=== PATIENT | female | born 1970 | race Caucasian/White ===

== ENCOUNTER 2017-09-22 11:29 | Day surgery (SDC) | payer OTHER, SELFPAY ==
[2017-09-20 11:25] LABS: Hematocrit 39.8 % (37-47); Hemoglobin 13.7 g/dl (12.0-15.0); Mean Corp Hgb Conc 34.4 g/gl (32-36); Mean Corpuscular Hgb 31.4 pg (27.0-32.0); Mean Corpuscular Volume 91.1 fL (81-99); Mean Platelet Vol. 8.9 fl (6.2-12.0); Platelet Count 193 K/mm3 (150-450); RBC Distribution Width CV 12.3 % (11.6-14.6); RBC Distribution Width SD 40.7 fl (35.1-43.9); Red Blood Count 4.37 M/mm3 (4.2-5.4); White Blood Count 5.5 K/mm3 (4.4-11.0)
[2017-09-20 11:27] LABS: International Normalized Ratio 1.1; Prothrombin Time (Protime)PT. 13.9 SECONDS (11.7-14.9)
[2017-09-20 11:28] LABS: Partial Thromboplast Time 31.5 Seconds (24.1-36.2)
[2017-09-20 11:38] LABS: Scan Indicated on CBC? Y/N NO
[2017-09-20 11:41] LABS: Pregnancy, Serum, hCG Quali. NEGATIVE Negative (0-9 Nonpreg)
[2017-09-22 11:58] VITALS: BP 135/91; PULSE 63; RESP 16; TEMP 37.1; O2SAT 100; BMI 32.8
[2017-09-22 12:01] LABS: Internal QC Validated? YES +Cl - CLEAR BKGD; Pregnancy, Urine Negative Negative
--- NOTE | 2017-09-22 13:05 | FALS_PTH ---
PATIENT: JUNIOR TSE [place] [facility] [place][id number] AGE/SX: 46/F ROOM: RE09/22/[address]: Dr. Christa Villegas MD : 1970 BED: DIS: 09/22/2017 SPEC #: [id number] RECD: 09/22/17 18:09 STATUS: KEILA CARI #: [id number] ROVERTO: 09/22/17 13:[address]: Christa Villegas DEPT: SURGICAL PATHOLOGY RECD BY: Julian Ware ENTERED: 09/23/17 11:04 SP TYPE: FALL TUBES OTHR DR: Dr. Doreen Reeves MD Tissues: A - Fallopian tube B - Uterine cervix, NOS Procedures: Surgery Specimen Level II Surgery Specimen Level IV HEADER OPERATION: Laparoscopic salpingectomy, hysteroscopy D & C, Hazel PRE-OP DIAGNOSIS: Excessive and frequent menstruation; sterilization request TISSUE SUBMITTED: A ? Bilateral fallopian tubes, B ? Uterine curettings MICROSCOPIC DIAGNOSIS A. Bilateral fallopian tubes, salpingectomy: Bilateral fallopian tubes including fimbrial ends, no pathologic diagnosis. B. Uterine curettings: Mildly disordered proliferative endometrium. Mild chronic endometritis. ESME:lew 09/24/17 MICROSCOPIC DESCRIPTION Slides are reviewed. GROSS DESCRIPTION A - Received is one container labeled with the patient's name and designated bilateral fallopian tubes. The specimen consists of bilateral fallopian tubes including fimbrial ends. The fallopian tubes are not identified as right or left. One of the fallopian tubes measure 6 cm in length and 0.5 cm in diameter. The fimbrial end has normal appearance. Sections do not reveal any mass lesion. The other fallopian tube measures 7 cm in length and 0.5 cm in diameter. Water Main Inspector sections are submitted in two cassettes. The entire specimen is submitted in two cassettes with each cassette containing one fallopian tube. B - Received in fixative is one container labeled with the patient's name and designated uterine curettings. The specimen consists of multiple fragments of hemorrhagic soft tissue that in aggregate measure 3 x 2.5 x 0.3 cm. The entire specimen is submitted in one cassette. / ESME:lew 09/23/17 TC:3 CPT: 70691 x2, 92253
--- NOTE | 2017-09-22 13:39 | PCM.DC.TUB ---
Discharge Diet: No Restrictions Discharge Activity: May not drive while taking narcotic pain medications., May Shower, May Take a Tub Bath May resume sexual activity in: 1-2 weeks Additional Activity Instructions:: Ambulate often the next week after surgery. Nothing in the vagina for 5 days. Call your doctor if you observe: Fever of 101 or Higher, Inability to have a bowel movement, Using more than one pad per hour, Calf discomfort, Uncontrolled pain Allergies/Adverse Reactions: Allergies bee venom protein (honey bee) Allergy (Verified 09/15/17 13:49) Swelling Medications to take at Discharge Bacillus Coagulans [Probiotic] 1 each PO DAILY 07/21/17 Citalopram [Celexa] 20 mg PO DAILY 07/21/17 Multivitamin [Multiple Vitamins] 1 each PO DAILY 07/21/17 Beaman-3 Fatty Acids/Fish Oil [Beaman 3 1,000 mg Softgel] 1 each PO DAILY 07/21/17 Oxycodone [Oxyir] 5 - 10 mg PO Q6H PRN PRN 2 Days #7 tablet 09/22/17 The following prescriptions were given: Oxycodone [Oxyir] 5 - 10 mg PO Q6H PRN PRN 2 Days #7 tablet PRN Reason: Mod-Severe Pain (4-10/10) Primary Care Physician: Doreen Reeves MD [Primary Care Provider] - Please Follow Up With: Christa Villegas MD - [phone] When: in two weeks as planned for follow up check. Proposed Discharge Date: 09/22/17
--- NOTE | 2017-09-22 13:44 | DCINST_ITS ---
Discharge Diet: No Restrictions Discharge Activity: May not drive while taking narcotic pain medications., May Shower, May Take a Tub Bath May resume sexual activity in: 1-2 weeks Additional Activity Instructions:: Ambulate often the next week after surgery. Nothing in the vagina for 5 days. Call your doctor if you observe: Fever of 101 or Higher, Inability to have a bowel movement, Using more than one pad per hour, Calf discomfort, Uncontrolled pain Allergies/Adverse Reactions: Allergies bee venom protein (honey bee) Allergy (Verified 09/15/17 13:49) Swelling Medications to take at Discharge Bacillus Coagulans [Probiotic] 1 each PO DAILY 07/21/17 Citalopram [Celexa] 20 mg PO DAILY 07/21/17 Multivitamin [Multiple Vitamins] 1 each PO DAILY 07/21/17 Sweet Grass-3 Fatty Acids/Fish Oil [Sweet Grass 3 1,000 mg Softgel] 1 each PO DAILY Oxycodone [Oxyir] 5 - 10 mg PO Q6H PRN PRN 2 Days #7 tablet 09/22/17 The following prescriptions were given: Oxycodone [Oxyir] 5 - 10 mg PO Q6H PRN PRN 2 Days #7 tablet PRN Reason: Mod-Severe Pain (4-10/10) Primary Care Physician: Doreen Reeves MD [Primary Care Provider] - Please Follow Up With: Christa Villegas MD - [phone] When: in two weeks as planned for follow up check. Proposed Discharge Date: 09/22/17
[2017-09-22] MEDS: Bupiv/Epi 0.5% Mpf 30 ML Vial (13:58)
[2017-09-22 14:46] VITALS: BP 135/91; BP 136/83; PULSE 80; RESP 16; TEMP 36.5; O2SAT 98
[2017-09-22 15:00] VITALS: BP 134/82; BP 135/91; PULSE 62; RESP 16; O2SAT 94
[2017-09-22 15:15] VITALS: BP 133/81; BP 135/91; PULSE 68; RESP 16; O2SAT 99
[2017-09-22 15:28] VITALS: BP 135/83; BP 135/91; PULSE 60; RESP 16; TEMP 36.6; O2SAT 99
[2017-09-22 16:23] VITALS: BP 135/91
--- NOTE | 2017-09-22 20:51 | PCM.OP.BLANK ---
Operative Report Date of Procedure: 09/22/17 Operative Report Date of Procedure: 09/22/17 PROCEDURE: Laparoscopic bilateral salpingectomy Hysteroscopy Dilation and Curettage Hazel Endometrial Ablation PREOPERATIVE DIAGNOSIS: Excessive bleeding in premenopause Sterilization Request POSTOPERATIVE DIAGNOSIS: Excessive bleeding in premenopause Sterilization Request ANESTHESIA: MAC IV sedation per SANDY Rizzo and Mikhail Mandujano MD SURGEON: Christa Villegas MD EBL: minimal COMPLICATIONS: None DRAINS: Red Johnson catheter used to drain bladder prior to initiation of the case FLUIDS: LR replacement FINDINGS: Normal appearing uterus, fallopian tubes and ovaries noted on laparoscopy Uterus is 8 cm with 4 cm endometrial cavity. Both tubal ostia noted. NARRATIVE ACCOUNT: After the risks, benefits, alternatives of the procedure had been reviewed with the patient informed consent was obtained. The patient was taken to the operating room with an IV running and was place in dorsal supine position on the operating table. A red Johnson catheter was used to drain the bladder. she was positioned on the operating table in dorsal supine position, where she was given general anesthesia. Once asleep she was repositioned to the dorsal lithotomy position and prepped and draped in the usual sterile fashion. A red Johnson catheter was used to drain the bladder prior to initiating the case. A single toothed tenaculum and Dona cannula were placed into the cervix to allow manipulation of the uterus and cervix during the case. Attention was then turned to the anterior abdominal wall where 0.5 % Marcaine with epinephrine was instilled at the suprapubic and infraumbilical skin and at a point midway between in the midline. Skin incisions were then created in the midline at the suprapubic skin and at the infraumbilical skin and midway between the two. While maintaining upward traction of the anterior abdominal wall a Veress needle was inserted through the umbilical incision into the peritoneal cavity. There was free drop of saline, low opening pressure and free flow of CO2 noted. Once the intraabdominal pressure had reached 12 mm of mercury the Veress needle was removed and a bladeless 5 mm trocar was placed through infraumbilical skin incision into the peritoneal cavity. Correct placement was confirmed using the scope. Under direct visualization then with the patient in Trendelenburg position, a bladeless 5 mm trocar was inserted in through suprapubic skin incision into the peritoneal cavity and at a point midway between the infraumbilical and suprapubic trocars. The uterus as anteverted and both ovaries and fallopian tubes were WNL. The L fallopian tube was grasped and retracted medially and using a LigaSure device the fallopian tube was excised from the ovary and mesosalpinx. Excellent hemostasis was noted at the excision site. The L fallopian tube was brought through the suprapubic trocar and set aside for later pathology review. In a similar manner the R fallopian tube was grasped and retracted medially and the fallopian tube was excised and removed from the abdominal cavity through the suprapubic trochar. The Fallopian tubes were sent to pathology. Excellent hemostasis was noted by visualization of the pelvis, ovaries, and remaining mesosalpinx. Photos were taken of the uterus and bilateral remaining ovaries . At this point this portion of the the procedure was terminated. The pneumoperitoneum was reduced and the instruments and trocars were removed from he the anterior abdominal wall skin. The skin incisions were closed with 4-0 Monocryl in a subcuticular fashion. Dermabond and OpSites were applied to the skin. The Single toothed tenaculum and Dona cannula were removed from the vagina. A Graves speculum was placed into the vagina and a single toothed tenaculum was then placed at the anterior lip of the cervix. The uterus was sounded to 8 cm and the endocervical canal 4 cm, giving cavity length of 4 cm. The cervix was sequentially dilated to allow admission of the hysteroscope. The hysteroscopy was then performed with the findings noted above. Both tubal ostia were visualized. The hysteroscope was withdrawn. A sharp curettage was performed and the curettings were withdrawn and set aside for later pathology review. The Hazel ablation device was then placed into the uterus to the fundus. The device was opened and seated into place and the balloon was inflated, sealing off the cervix. The CO2 test was passed times two and a 120 second treatment cycle was then successfully completed. Upon completion of the ablation, the Hazel device was removed from the uterus and cervix. The tenaculum was removed from the anterior lip of the cervix. Excellent hemostasis was noted. The Graves speculum was removed from the vagina and the patient was returned to dorsal supine position. she was transferred then to the recovery room in stable condition after tolerating the procedure well. Sponge, needle, and instrument counts were correct times two. Medications given intraop included a 10 cc of 0.5 % Marcaine as a local anesthetic at the skin incisions . For a complete listing of the medications given preop and intraoperatively, please see the anesthesia record.
== END 2017-09-22 16:56 | disposition home or self-care (01) ==
LOC: SDC 11:31 → AC 11:32
PROVIDERS: Anesthesiology; Family Provider Internal Medicine; PCP Internal Medicine; Visit Provider Obstetrics & Gynecology
PROC: (CPT 58661; principal; 2017-09-22 12:50)
DX: Z30.2 Encounter for sterilization (principal); N92.4 Excessive bleeding in the premenopausal period; M06.9 Rheumatoid arthritis, unspecified; F41.9 Anxiety disorder, unspecified; Z79.899 Other long term (current) drug therapy; K21.9 Gastro-esophageal reflux disease without esophagitis
CPT/HCPCS: 00952; 58563; 58661; 36415; 81025; 84703; 85027; 85610; 85730; 88302; 88305; J7120; J2405

== ENCOUNTER → 2017-10-18 15:16 | Outpatient (CLI) | payer OTHER, SELFPAY ==
--- NOTE | 2017-10-18 15:17 | HPBI_ITS ---
MAMMOGRAPHY - BILATERAL SCREENING REASON FOR EXAM: Female, 46 years old. Routine annual screening examination. PERTINENT HISTORY: Non-contributory. TECHNIQUE: Digital bilateral breast thierry (3D mammographic acquisition) in the CC and MLO projections. 2-D mediolateral oblique (MLO) and craniocaudad (CC) views of both breasts were obtained. CAD: Full Field Digital Mammography with Computer Added Detection was performed. COMPARISON: Comparison is made with prior study dated September 03, 2016 and June 14, 2015. FINDINGS: Breast Composition: There are scattered areas of fibroglandular density. There are no dominant masses or suspicious calcifications. Stable bilateral benign appearing axillary lymph nodes. No other significant abnormalities are identified. There has been no significant change since the prior study. HPBI/SCREENING MAMM (CAD), BILAT IMPRESSION: Stable bilateral screening mammogram. Yearly follow-up mammogram recommended. (A) ASSESSMENT CATEGORY: BIRADS Category 2: Benign. A letter regarding these results will be sent to the patient by the facility within 30 days. Approximately 10% of breast cancers are not detected by mammography. A normal mammogram should not delay biopsy of a clinically suspicious abnormality. [id number] Electronically Signed: Ned Cheng MD at 8:16 EDT Tel [phone], Service support ,
== END ==
PROVIDERS: Family Provider Internal Medicine; PCP Internal Medicine; Visit Provider Obstetrics & Gynecology
DX: Z12.31 Encounter for screening mammogram for malignant neoplasm of breast (principal)
CPT/HCPCS: 77063; 77067

== ENCOUNTER → 2018-08-29 18:15 | Outpatient (CLI) | payer OTHER, SELFPAY ==
[2018-08-29 22:03] LABS: Chlamydia Trachomatis by PCR Negative (Negative); Neisserai gonorrhoeae by PCR Negative (Negative); Probe Check PASS; Sample Adequacy Control PASS; Specimen Processing Control PASS
[2018-09-01 15:20] LABS: HPV Reflexed? NOT INDICATED
== END ==
PROVIDERS: Family Provider Internal Medicine; PCP Internal Medicine; Referring Provider Obstetrics & Gynecology; Visit Provider Obstetrics & Gynecology
DX: Z12.4 Encounter for screening for malignant neoplasm of cervix (principal); Z11.3 Encounter for screening for infections with a predominantly sexual mode of transmission
CPT/HCPCS: 87491; 87591; 88175; G0145

== ENCOUNTER → 2018-09-01 16:15 | Outpatient (CLI) | payer OTHER, SELFPAY ==
--- NOTE | 2018-09-01 16:22 | RAD_ITS ---
STUDY: X-RAY - RIGHT HAND REASON FOR EXAM: Female, 47 years old. Pain TECHNIQUE: 3 view(s) of the hand. COMPARISON: None. FINDINGS: Normal radiocarpal articulation. Normal distal radioulnar joint. Normal visualized carpal bones. Normal carpal articulations Normal carpometacarpal articulation of the thumb. Normal second through fifth carpometacarpal joints. Normal metacarpi. Normal metacarpophalangeal joint of the thumb. Normal interphalangeal joint of the thumb. Normal proximal and distal phalanges of the thumb. Normal metacarpophalangeal joints of the second through fifth fingers. Normal proximal and distal interphalangeal joints of the second through fifth fingers. Normal phalanges of the second through fifth fingers. The soft tissue structures are unremarkable. RAD/Hand Min 3 Views IMPRESSION: Normal x-ray examination of the hand. Electronically Signed: Chano Yuan MD at 7:35 EST , Service support ,
[2018-09-01 17:30] LABS: Absolute Neutrophil Count 2.9 X10^3/uL (2.0-7.7); Basophil# 0.04 X10^3/uL; Basophil% 0.6 % (0-1); Eosinophil# 0.25 X10^3/uL; Eosinophils% 3.7 % (0-5); Hematocrit 38.5 % (37-47); Hemoglobin 13.6 g/dl (12.0-15.0); Lymphocyte % 42.8 % (19-41); Mean Corp Hgb Conc 35.3 g/gl (32-36); Mean Corpuscular Hgb 32.1 pg (27.0-32.0); Mean Corpuscular Volume 90.8 fL (81-99); Mean Platelet Vol. 9.1 fl (6.2-12.0); Monocyte# 0.67 X10^3/uL; Monocyte% 9.9 % (0-10); Neutrophil # 2.91 X10^3/uL (2.7-7.7); Neutrophil % 42.9 % (47-70); Platelet Count 242 K/mm3 (150-450); RBC Distribution Width CV 12.3 % (11.6-14.6); RBC Distribution Width SD 40.1 fl (35.1-43.9); Red Blood Count 4.24 M/mm3 (4.2-5.4); White Blood Count 6.8 K/mm3 (4.4-11.0)
[2018-09-01 17:34] LABS: POSITIVE COUNT NO; POSITIVE DIFFERENTIAL NO; POSITIVE MORPHOLOGY NO
[2018-09-01 17:49] LABS: Erythrocyte Sedimentation Rate 9 mm/hr (0-20)
[2018-09-01 18:01] LABS: ALB/GLOB Ratio 0.9 RATIO (0.9-2.4); AST(SGOT) 22 U/L (15-37); Alanine Aminotransfer ALT/SGPT 34 U/L (13-56); Albumin, Serum 3.7 g/dL (3.2-5.0); Alkaline Phosphatase 63 U/L (45-117); Anion Gap 8 (5-15); BUN 12 mg/dL (7-18); BUN/Creat Ratio 15.1 RATIO (10-20); CRP < 2.90 mg/L (0.0-3.0); Calcium,Total 8.5 mg/dL (8.5-10.1); Chloride 108 mmol/L (98-107); Creatinine, Serum 0.79 mg/dL (0.55-1.02); EST Glomerular Filtration Rate 82 mL/min (>60); Est Glom Filt Rate - Afr Amer 99 mL/min (>60); Globulin 4.1 g/dL (2.2-4.2); Glucose 85 mg/dL (74-106); Potassium 3.9 mmol/L (3.5-5.1); Protein, Total 7.8 g/dL (6.4-8.2); Sodium Level 141 mmol/L (136-145); Thyroid Stim Hormone (TSH) 1.58 uIU/mL (0.358-3.74); Uric Acid 4.2 mg/dL (2.6-6.0); Vitamin B12 957 pg/mL (211-911)
[2018-09-06 08:56] LABS: ANTINUCLEAR ANTIBODIES DIRECT Negative (Negative)
== END ==
PROVIDERS: Family Provider Family Medicine; PCP Family Medicine; Referring Provider Family Medicine; Visit Provider Family Medicine
DX: M79.641 Pain in right hand (principal); M79.89 Other specified soft tissue disorders; M08.20 Juvenile rheumatoid arthritis with systemic onset, unspecified site; R20.2 Paresthesia of skin
CPT/HCPCS: 36415; 73130; 80053; 82607; 84443; 84550; 85025; 85652; 86038; 86140; 86431

== ENCOUNTER → 2018-10-04 16:59 | Outpatient (CLI) | payer OTHER, SELFPAY ==
--- NOTE | 2018-10-04 17:02 | RAD_ITS ---
STUDY: X-RAY - CERVICAL SPINE REASON FOR EXAM: Female, 47 years old. Bilateral hand tingling, paresthesias. TECHNIQUE: 5 view(s) of the cervical spine were obtained. COMPARISON: None FINDINGS: Reversal of the expected cervical lordosis. Vertebral body height and alignment normal. Mineralization normal. Between C2 and C5, normal discs, normal-appearing facets. C5-C6 moderate disc narrowing, anterior osteophyte, uncovertebral joint hypertrophy. C6-C7 moderately severe disc narrowing, small anterior osteophyte, uncovertebral joint hypertrophy. Uncovertebral joint hypertrophy at these levels contributes to at least mild foraminal narrowing on the oblique views. There is minimal facet arthropathy/hypertrophy most prominent in the low cervical spine on the left. Odontoid and lateral masses normal. Craniofacial and upper thoracic osseous structures intact. Apical lungs clear. Prevertebral/cervical soft tissues exhibit no acute process. RAD/Cerv Spine 4 or 5 Views IMPRESSION: Prominent degenerative disc disease at C5-C6 and C6-C7. With convincing symptoms of cervical radiculopathy follow-up MRI of the cervical spine is recommended. Electronically Signed: Patrice Webb MD at 15:46 EST Tel , Service support ,
== END ==
PROVIDERS: Family Provider Family Medicine; PCP Family Medicine; Referring Provider Family Medicine; Visit Provider Family Medicine
DX: R20.2 Paresthesia of skin (principal)
CPT/HCPCS: 72050

== ENCOUNTER → 2018-10-05 16:34 | Outpatient (CLI) | payer OTHER, SELFPAY ==
[2018-10-05 17:45] LABS: Estradiol 236.6 pg/mL; Follicle Stimulating Hormone 3.8 mIU/mL; Luteinizing Hormone 9.5 mIU/mL
[2018-10-05 17:47] LABS: Vitamin D,25 Hydroxy 35.4 ng/mL (29.95-100.01)
[2018-10-07 12:41] LABS: DHEA Sulfate 97.8 ug/dL (41.2-243.7)
== END ==
PROVIDERS: Family Provider Family Medicine; PCP Family Medicine; Referring Provider Family Medicine; Visit Provider Family Medicine
DX: R23.2 Flushing (principal); R53.83 Other fatigue
CPT/HCPCS: 36415; 82306; 82533; 82627; 82670; 83001; 83002; 82626

== ENCOUNTER → 2018-10-14 06:25 | Outpatient (CLI) | payer OTHER, SELFPAY ==
--- NOTE | 2018-10-14 06:38 | MRI_ITS ---
STUDY: MRI CERVICAL SPINE WITHOUT CONTRAST REASON FOR EXAM: Female, 47 years old. Pain, numbness, tingling of bilateral hands x10 weeks. History of RA. TECHNIQUE: Standardized fat and water weighted pulse sequences were obtained in the sagittal and axial planes. COMPARISON: Cervical spine radiographs 10/04/2018. FINDINGS: Normal foramen magnum and brainstem-cervical cord junction. Normal craniovertebral junction. Normal anterior atlantoaxial articulation. Normal odontoid process. Mild cervical kyphosis. Normal vertebral bodies and posterior osseous elements. C2-3: Normal endplates. Normal disc height, signal and morphology. Normal central canal and intervertebral neural foramina. C3-4: Normal endplates. Normal disc height, signal and morphology. Normal central canal and intervertebral neural foramina. C4-5: Normal endplates. Mild disc space height narrowing. No ventral extradural defect. Normal central canal and bilateral intervertebral neural foramina. C5-6: Minimal anterior marginal spurs. Normal endplates. Moderately pronounced disc space height narrowing. No ventral extra dural defect. Normal central canal. Moderate stenosis of the right intervertebral neural foramen. Normal left intervertebral neural foramen. C6-7: Anterior marginal spurs. Modic type I degenerative vertebral marrow edema underneath the vertebral endplates. Moderately pronounced disc space height narrowing. Small posterior marginal spurs causing mild left ventral extradural defect. Normal central canal. Mild stenosis of the left intervertebral neural foramen. Normal right intervertebral neural foramen. C7-T1: Normal endplates. Normal disc height, signal and morphology. Normal central canal and intervertebral neural foramina. T1-T2, T2-T3 and T3-T4: (Sagittal only). Normal endplates. Normal disc height and morphology. Normal central canal and bilateral intervertebral neural foramina. Normal cervical cord. Normal visualized soft tissue structures. MRI/Spine Cervical (Routine) IMPRESSION: 1. No MRI evidence of cervical extruded disc fragment. 2. Moderately pronounced C6-C7 disc space height narrowing with Modic type I degenerative vertebral marrow edema underneath the vertebral endplates and mild stenosis of the left intervertebral neural foramen. 3. Moderate pronounced C5-C6 disc space height narrowing and moderate stenosis of the right intervertebral neural foramen. Electronically Signed: Bennett Correa MD at 15:39 EDT , Service support ,
== END ==
PROVIDERS: Family Provider Family Medicine; PCP Family Medicine; Referring Provider Family Medicine; Visit Provider Family Medicine
DX: R20.2 Paresthesia of skin (principal)
CPT/HCPCS: 72141

== ENCOUNTER → 2018-10-19 16:17 | Outpatient (CLI) | payer OTHER, SELFPAY ==
--- NOTE | 2018-10-19 16:21 | BI_ITS ---
MAMMOGRAPHY - BILATERAL SCREENING 3-D NIKIA SYNTHESIS REASON FOR EXAM: Female, 47 years old. Bilateral Screening 3-D tomosynthesis PERTINENT HISTORY: No significant family history. TECHNIQUE: 2-D mammograms and 3-D Nikia synthesis of the breast (s) were performed. CAD was performed. COMPARISON: October 18, 2017, September 03, 2016 FINDINGS: The breast composition is almost entirely fat. Scattered benign calcifications are stable. There are stable lymph nodes in both axillae. No dense spiculated masses or suspicious microcalcifications are identified. No architectural distortion is identified. There is no skin thickening or retraction. There has been no significant change since the prior study. BI/SCREENING MAMM (CAD), BILAT IMPRESSION: No mammographic signs of malignancy. Routine yearly mammograms recommended. ASSESSMENT CATEGORY: BIRADS Category 2: Benign. A letter regarding these results will be sent to the patient by the facility within 30 days. FOLLOW UP RECOMMENDATION: Yearly follow up mammogram recommended. (A) Approximately 10% of breast cancers are not detected by mammography. A normal mammogram should not delay biopsy of a clinically suspicious abnormality. Electronically Signed: Marlon Alfaro MD at 16:32 EDT , Service support ,
== END ==
PROVIDERS: Family Provider Family Medicine; PCP Family Medicine; Visit Provider Obstetrics & Gynecology
DX: Z12.31 Encounter for screening mammogram for malignant neoplasm of breast (principal)
CPT/HCPCS: 77063; 77067

== ENCOUNTER 2018-11-22 15:30 | Outpatient (RCR) | payer OTHER, SELFPAY ==
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
--- NOTE | 2019-03-16 15:34 | HP.PTDCNRP_ITS ---
HP - Discharge Summary (1) - Patient Information JUNIOR TSE was seen in my office for initial evaluation on 10/27/18. The following Plan of Care was established for this patient: Initial Frequency: 2x /Week Initial Duration: 4 Weeks - Anticipated Interventions Patient/Client Instruction: Educate patient on: Condition, Plan of Care For the Purpose of:: To decrease pain, To increase ROM, To improve muscle perf ormance and motor function, To improve ability to perform ADL's, To increase tolerance to activity/condition/position, To improve ability of physical actions for home/community/work/leisure, To improve health of tissue, To decrease soft tissue restriction, To increase flexibility/ROM, To improve ability to perform tasks related to life management Therapeutic Exercise to Include: Strength training, Postural training, Flexibilty training, Passive ROM, Active ROM For the Purpose of:: To decrease pain, To increase ROM, To improve muscle performance and motor function, To improve ability to perform ADL's, To increase tolerance to activity/condition/position, To improve ability of physical actions for home/community/work/leisure, To improve health of tissue, To decrease soft tissue restriction, To reduce risk of recurrence, To improve ability to perform tasks related to life management Manual Therapy Techniques to Include: Mobilization Comment: MANUAL CERVICAL TRCATION For the Purpose of:: To decrease pain, To increase ROM, To improve muscle performance and motor function, To improve ability to perform ADL's, To improve health of tissue, To decrease soft tissue restriction, To increase flexibility/ROM TENS: Yes IF ES: Yes Ultrasound (thermal/non thermal): Yes Intermittent cervical traction: Yes For the Purpose of:: To decrease pain, To improve nutrient delivery to tissue, To increase oxygenation perfusion, To improve health of tissue, To decrease soft tissue restriction This patient was last seen in our office 11/22/18. Pertinent comments regarding their Physical therapy will appear below: Patient seen for PT for cervical DDD with radicular symptoms in arms. PT focused on manual therapy ,modalties,postural ex's. Pateint cont to have parathesia in hands . At this point ,patient is d/c. At this point I will be discontinuing this patient from physical therapy. I would be happy to see this patient again in the future if found appropriate by the physician. Thank you! Milad Cao, PT, Cert MDT, OCS
== END 2018-11-22 19:00 | disposition home or self-care (01) ==
LOC: PT 15:30
PROVIDERS: Family Provider Family Medicine; PCP Family Medicine; Referring Provider Family Medicine; Visit Provider Family Medicine
DX: M50.30 Other cervical disc degeneration, unspecified cervical region (principal)
CPT/HCPCS: 97012; 97035; 97140; 97162

== ENCOUNTER → 2019-09-05 | Outpatient (CLI) | payer OTHER, SELFPAY ==
[2019-09-05 20:20] LABS: Chlamydia Trachomatis by PCR Negative (Negative); Neisserai gonorrhoeae by PCR Negative (Negative); Probe Check PASS; Sample Adequacy Control PASS; Specimen Processing Control PASS
== END | disposition home or self-care (01) ==
PROVIDERS: PCP Family Medicine; Referring Provider Obstetrics & Gynecology; Visit Provider Obstetrics & Gynecology
DX: Z11.3 Encounter for screening for infections with a predominantly sexual mode of transmission (principal)
CPT/HCPCS: 87491; 87591

== ENCOUNTER → 2019-10-03 11:36 | Outpatient (CLI) | payer OTHER, SELFPAY ==
[2019-10-03 15:18] LABS: Anion Gap 5 (5-15); BUN 14 mg/dL (7-18); BUN/Creat Ratio 17.5 RATIO (10-20); Chloride 109 mmol/L (98-107); Cholesterol 163 mg/dL (200); EST Glomerular Filtration Rate 81 mL/min (>60); Est Glom Filt Rate - Afr Amer 98 mL/min (>60); Glucose 84 mg/dL (74-106); High Density Lipoprotein 33 mg/dL; Sodium Level 140 mmol/L (136-145); Triglycerides 173 mg/dL; Very Low Density Lipoprotein 35 mg/dL (5-40)
== END ==
PROVIDERS: PCP Family Medicine; Referring Provider Family Medicine; Visit Provider Family Medicine
DX: Z13.1 Encounter for screening for diabetes mellitus (principal); Z13.220 Encounter for screening for lipoid disorders
CPT/HCPCS: 36415; 80048; 80061

== ENCOUNTER 2019-10-04 15:43 | Emergency (ER) | payer OTHER, SELFPAY ==
[2019-10-04 15:44] VITALS: BP 156/95; PULSE 68; RESP 19; TEMP 36.8; O2SAT 17; BMI 35.5
--- NOTE | 2019-10-04 15:57 | EKG12_ITS ---
Test Reason : CP Blood Pressure : / mmHG Vent. Rate : 071 BPM Atrial Rate : 071 BPM P-R Int : 126 ms QRS Dur : 088 ms QT Int : 394 ms P-R-T Axes : 000 014 024 degrees QTc Int : 428 ms Normal sinus rhythm with sinus arrhythmia Normal ECG Confirmed by PARTH MENA, AURELIANO ([id number]), avid editor JOSE ANN ([id number]) on 10/06/2019 8:11:45 AM Referred By: GILLIAN Confirmed By:RAMON ALBA MD
--- NOTE | 2019-10-04 15:57 | CT_ITS ---
STUDY: CTA CHEST REASON FOR EXAM: Female, 48 years old. SUBSTERNAL NONRADIATING RT SIDED CP RADIATION DOSAGE (If Supplied By Facility): CTDIvol = ( 12.76 ) mGy, DLP = ( 1030.15 ) mGycm TECHNIQUE: The examination was performed with the intravenous administration of 100 CC ISOVUE 370. Post-processing of the angiographic images was performed, with multiplanar reformation and 3D reconstruction. Individualized dose optimization techniques were used for this CT. COMPARISON: 05/29/13. FINDINGS: Normal enhancement of the main pulmonary artery and right and left pulmonary arteries. Normal enhancement of the bilateral peripheral pulmonary arteries. There is no demonstrated pulmonary embolism. Normal thoracic aorta and visualized great vessels. There is no demonstrated aortic dissection. Normal heart and pericardium. Normal mediastinum. Normal hilar regions. Normal visualized trachea and bronchi. The lungs are well expanded. Normal pulmonary parenchyma. Normal pleura. Normal chest wall structures. Normal osseous structures. There is diffuse fatty infiltration of the liver. CT/CTA Chest W/WO Contrast IMPRESSION: No demonstrated pulmonary embolism or arterial dissection. Electronically Signed: Herb Campos, at 17:16 EST Tel , Service support ,
[2019-10-04 16:09] LABS: Absolute Lymphocyte Count 3.26 X10^3/uL (0.83-4.51); Absolute Neutrophil Count 3.8 X10^3/uL (2.0-7.7); Basophil# 0.05 X10^3/uL; Basophil% 0.6 % (0-1); Eosinophil# 0.18 X10^3/uL; Eosinophils% 2.3 % (0-5); Hematocrit 38.8 % (37-47); Hemoglobin 13.9 g/dL (12.0-15.0); Lymphocyte # 3.26 X10^3/ul (4.0); Lymphocyte % 40.8 % (19-41); Mean Corp Hgb Conc 35.8 g/dL (32-36); Mean Corpuscular Volume 89.2 fL (81-99); Mean Platelet Vol. 9.3 fl (6.2-12.0); Monocyte# 0.67 X10^3/uL; Monocyte% 8.4 % (0-10); NRBC Flagged by Analyzer 0 % (0-5); Neutrophil # 3.83 X10^3/uL (2.7-7.7); Neutrophil % 47.8 % (47-70); Platelet Count 231 K/mm3 (150-450); RBC Distribution Width CV 11.9 % (11.6-14.6); RBC Distribution Width SD 38.7 fl (35.1-43.9); Red Blood Count 4.35 M/mm3 (4.2-5.4)
[2019-10-04] MEDS: 0.9% Normal Saline 1,000 ML 1000 ML IV (16:13)
[2019-10-04 16:53] LABS: Anion Gap 8 (5-15); BUN 13 mg/dL (7-18); BUN/Creat Ratio 14.7 RATIO (10-20); Chloride 106 mmol/L (98-107); Creatinine, Serum 0.89 mg/dL (0.55-1.02); EST Glomerular Filtration Rate 72 mL/min (>60); Est Glom Filt Rate - Afr Amer 87 mL/min (>60); Estimated Creatinine Clearance 72.37 ml/min; Glucose 102 mg/dL (74-106); Sodium Level 137 mmol/L (136-145)
--- NOTE | 2019-10-04 17:46 | ED.DCSUM_ITS ---
- ER Visit Summary Date of Service: 10/04/19 Chief Complaint: Chest pain History of Present Illness: The patient is a [address] Patel. She reports that she has chest pain began 3 days ago. Is just to the right of her sternum. Is 8 out of 10 at worst and she is pain-free currently. She describes the pain as sharp. Is worsened by movement or deep breaths. Is relieved by rest and remaining still. She reports is been nauseated and short of breath with this. She denies any vomiting or diaphoresis. Denies recent trauma. No fall, MVA, or change in activity. Patient does report that she had a DVT 2 years ago. She was taken off of her control pills. She is not on anticoagulants. She denies any ankle swelling or calf pain. Physical Examination: Vitals: Stable. Afebrile. General: Well-nourished and well-developed. Head: Normocephalic atraumatic. Neck: Supple, no lymphadenopathy. No JVD. Nontender. Cardiovascular: Regular rate and rhythm. No murmurs. Respiratory: No respiratory distress. Clear to auscultation bilaterally. Mild tenderness palpation over the right costochondral margin that does reproduce her pain. Abdominal: Soft, nontender, nondistended, normal bowel sounds. No guarding, rebound, or peritoneal signs. Back: Nontender. Extremities: Nontender, no edema. Skin: Normal color, no rash. Neurologic: Alert and oriented ?3. Cranial nerves II through XII are intact. Normal strength and sensation. Psych: Normal affect. Test Results: EKG is sinus at 71 with no acute changes. Troponin is negative. Chem-7 is normal. CBC is normal. Clinical Impression(s) from Imaging Studies Chest CTA 10/04/19 15:57 IMPRESSION: No demonstrated pulmonary embolism or arterial dissection. Electronically Signed: Herb Campos, at 17:16 EST Tel , Service support , Emergency Department Course and Treatment: Patient refused pain meds. She is resting comfortably. Treatment Plan: Discussed the patient this time I do not have an explanation for her pain but does seem musculoskeletal in origin. She will be discharged with symptomatic care. Follow-up with her primary care physician in 3 to 5 days if not improving. Return to the emergency department for any worsening symptoms. Disposition: To home in improved and stable condition. Impression: 1. Atypical chest pain. This note was generated with [employer] dictation software. It may contain incorrect words, spelling, and punctuation that were not noted in review of the chart prior to signing ED Disposition - Plan for ED Patient: Disposition: Home or Assisted Living Instructions: CHEST PAIN, Uncertain Cause Referrals: Damian Powell MD [Primary Care Provider] - 3-5 Days if not improving
[2019-10-04 18:27] VITALS: BP 142/83; PULSE 70; RESP 18; O2SAT 98
== END 2019-10-04 18:28 | disposition home or self-care (01) ==
LOC: ED 16:55
PROVIDERS: Emergency Provider Emergency Medicine; PCP Family Medicine
DX: R07.89 Other chest pain (principal); Z82.49 Family history of ischemic heart disease and other diseases of the circulatory system
CPT/HCPCS: 71275; 80048; 84484; 85025; 93005; 96360; 99285; J7030; Q9967; A4216

== ENCOUNTER → 2019-10-23 15:03 | Outpatient (CLI) | payer OTHER, SELFPAY ==
[2019-10-04 15:44] VITALS: BMI 35.5
--- NOTE | 2019-10-23 15:05 | BI_ITS ---
MAMMOGRAPHY - BILATERAL SCREENING REASON FOR EXAM: Female, 48 years old. Routine annual screening examination. PERTINENT HISTORY: Non-contributory. TECHNIQUE: Digital bilateral breast nikia (3D mammographic acquisition) in the CC and MLO projections. 2-D mediolateral oblique (MLO) and craniocaudad (CC) views of both breasts were obtained. CAD: Full Field Digital Mammography with Computer Added Detection was performed. COMPARISON: Comparison is made with prior study dated October 19, 2018 and October 18, 2017. FINDINGS: Breast Composition: There are scattered areas of fibroglandular density. There are no dominant masses or suspicious calcifications. Stable appearance of the benign-appearing bilateral axillary lymph nodes. No other significant abnormalities are identified. There has been no significant change since the prior study. BI/SCREEN MAMM (CAD) W/NIKIA BILAT IMPRESSION: Stable bilateral screening mammogram. Yearly follow-up mammogram recommended. (A) ASSESSMENT CATEGORY: BIRADS Category 2: Benign. A letter regarding these results will be sent to the patient by the facility within 30 days. Approximately 10% of breast cancers are not detected by mammography. A normal mammogram should not delay biopsy of a clinically suspicious abnormality. [id number] Electronically Signed: Ned Cheng, at 8:15 EDT , Service support ,
== END ==
PROVIDERS: PCP Family Medicine; Referring Provider Obstetrics & Gynecology; Visit Provider Obstetrics & Gynecology
DX: Z12.31 Encounter for screening mammogram for malignant neoplasm of breast (principal)
CPT/HCPCS: 77063; 77067

== ENCOUNTER 2020-11-12 05:59 | Day surgery (SDC) | payer OTHER, SELFPAY ==
[2020-10-08 15:20] VITALS: BMI 34.2
[2020-11-12] VITALS (7 sets, daily range): BP systolic 99–135; BP diastolic 57–93; PULSE 65–77; RESP 16; TEMP 36–36.1; O2SAT 97–99; BMI 34.4
--- NOTE | 2020-11-12 06:12 | HP.PCM_ITS ---
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 Is patient in pain?: No Allergies bee venom protein (honey bee) Allergy (Verified 10/08/20 15:21) Swelling Medications Bacillus Coagulans [Probiotic] 1 ea PO DAILY 07/21/17 [History Confirmed 10/08/20] Multivitamin [Multiple Vitamins] 1 ea PO DAILY 07/21/17 [History Confirmed 10/08/20] Whitehouse-3 Fatty Acids/Fish Oil [Whitehouse 3 1,000 mg Softgel] 1 ea PO DAILY 07/21/17 [History Confirmed 10/08/20] fluticasone propionate 50 mcg/actuation nasal spray,suspension INTRANASAL 10/08/20 [History Confirmed 10/08/20] omeprazole magnesium 20 mg capsule,delayed release 20 mg PO DAILY 10/08/20 [His tory Confirmed 10/08/20] Is last menstrual period known: No Post menopausal: Yes Patient : No PFSH Medical History (Updated 10/08/20 @ 17:[address] Mik Courtney MD) Family history of malignant neoplasm of colon in father (Acute) Gastroesophageal reflux disease (Acute) Anxiety (Acute) History of DVT (deep vein thrombosis) (Acute) History of peptic ulcer disease (Acute) Osteoarthritis (Acute) Rheumatoid arthritis (Acute) Chronic constipation (Chronic) HTN (hypertension) (Chronic) Surgical History (Updated 10/08/20 @ 15:20 by Erin Stinson) History of bone marrow donation (Acute) History of carpal tunnel release (Acute) History of cholecystectomy (Acute) History of colonoscopy (Acute) History of esophagogastroduodenoscopy (EGD) (Acute) History of salpingo-oophorectomy (Acute) Family History Sister Cancer leukemia Hypertension Mother Heart disease Social History (Updated 10/08/20 @ 17:[address] Mik Courtney MD) Smoking Status: Never smoker alcohol intake: never substance use type: does not use HPI HPI HPI: JUNIOR TSE, is a 49 F who presents to the office today for surgical consultation regarding the need for screening colonoscopy. The patient is also having trouble with intractable gastroesophageal reflux disease. She has severe chronic constipation. She is referred by her primary Dr. Zak Powell and a Written Copy My Surgical Consult and Recommendations Will Return to Him The Patient Has Problems with Reflux Disease. She Is Omeprazole Dependent. She Has Been on This for At Least 4 Years. If She Misses Her Therapy She Has Heartburn and Reflux Symptoms. The Patient Also Has Had Lifelong Severe Chronic Constipation. She Has a Family History of Colon Cancer in Her Father. He Developed It in His Low 60s and He Did Succumbed to the Disease. The Patient Possibly Moves Her Bowels Once Every 6 to 7 Days. She Denies Bright Red Blood per Rectum or Melena. No Unexpected Weight Loss. Remotely When She Was on Oral Contraceptive Pills She Developed a DVT. She Was Treated Appropriately with That. She Has Had No Evidence of Recurrence. She Denies Any Exposure to COVID-19. She Does Take Daily MiraLAX Therapy As Well As a Probiotic. She Notices No Difference in Her Chronic Constipation with That. The Patient's Sister Had Leukemia and the Patient Donated Bone Marrow for a Stem Cell Transplant. HPI HPI HPI: JUNIOR TSE, is a 49 F who presents to the office today for ROS General General: Yes weight change and fatigue; no appetite, colon cancer, breast cancer or weakness HEENT HEENT: No difficulty swallowing, eye injury, eye surgery, swollen glands or hoarseness Endo Endocrine: No thyroid disease, diabetes mellitus, thyroid cancer, Hair loss, heat intolerance or cold intolerance Musc Musculoskeletal: Yes back problems, arthritis and rheumatoid arthritis; no gout or joint pain Cardio Cardiovascular: Yes high blood pressure; no murmur, pacemaker, heart disease, atrial fibrillation, heart attack, heart stent, palpitations, shortness of breat with exertion or chest pain Psych Psychiatric: Yes anxiety; no depression or hearing voices Resp Respiratory: No shortness of breath, No sleep apnea, No cough, No COPD, No asthma, No emphysema, No wheezing Gastro Gastrointestinal: Yes abdominal pain, No nausea or vomiting, No diarrhea, Yes constipation, No blood in stool, Yes acid reflux, No hemorrhoids, Yes ulcers, Yes gallbladder problem, No black,tarry stools Dilip Hematologic: No blood thinners, No blood disorders, No bleeding, No anemia, Yes blood clots Neuro Neurologic: No weakness Exam Const General: cooperative, healthy appearing, comfortable Nutritional Appearance: obese Orientation: alert, awake HENMT Head: normal to inspection Eyes General: appearance normal, both eyes and all related structures Resp Effort & Inspection: normal respiratory effort Auscultation: clear to auscultation bilaterally Cardio Rate: regular rate Rhythm: regular rhythm Heart Sounds: no murmurs GI Palpation: soft, no hepatosplenomegaly Auscultation: normal bowel sounds Musc Cervical Spine: normal cervical lordosis Neuro General: alert, awake Extrem General: no calf tenderness Psych Affect: normal affect Assessment & Plan Problems 1. Gastroesophageal reflux disease, unspecified whether esophagitis present K21.9 2. Family history of malignant neoplasm of colon in father Z80.0 Plan 49-year-old female with a family history of colon cancer in her father who subsequently succumbed to the disease. In addition she had a sister who failed treatment for leukemia. The patient would appear to be at increased risk. She has severe chronic constipation moving her bowels only once every 6 to 7 days. This is despite taking daily MiraLAX treatment. In addition she is proton pump inhibitor dependent gastroesophageal reflux d isease. I recommend to her combined esophagogastroduodenoscopy with possible biopsy as well as colonoscopy with possible biopsy or polypectomy as indicated. I described the technique, benefit, risk, alternatives. We will plan on a 2-day bowel prep. We will utilize monitored anesthesia care. I appreciate the opportunity of assisting with her surgical management. Copy: Dr. Zak Courtney M.D., F.A.C.S. I have re-examined the patient. There are no clinical changes since date of exam. Procedure Criteria Procedure Type: Elective COVID Risk Discussion: The surgeon/proceduralist and patient have discussed in detail the risk of exposure to and/or potential harm posed by the COVID-19 virus with having a surgery/procedure at this time versus the risk of delaying the surgery/procedure. It is not possible to know either the risk of delaying the surgery or procedure or chance of getting an infection with perfect accuracy, but a joint decision was made between the patient and the surgeon/proceduralist to proceed at this time with the scheduled surgery/procedure as indicated on the consent form.
[2020-11-12] MEDS: Lactated Ringers 1,000 ML 100 ML IV (06:46)
--- NOTE | 2020-11-12 07:00 | IMM_PTH ---
PATIENT: JUNIOR TSE LOC: EN U#:[id number] AGE/SX: 50/F ROOM: RE11/12/[address]: Dr. Mik Courtney MD : 1970 BED: DIS: 11/12/2020 SPEC #: [id number] RECD: 11/12/20 13:25 STATUS: KEILA RERoberto #: [id number] ROVERTO: 11/12/20 07:[address]: Mik Courtney DEPT: IMMUNOHISTOCHEMISTRY RECD BY: Yahaira Mccormick ENTERED: 11/12/20 13:26 SP TYPE: IMMUNO OTHR DR: Dr. Zak Powell MD Tissues: B - Stomach, NOS Procedures: H Pylori (initial) PHYSICIAN & INSTITUTION [place] [id number] SPECIMEN INFORMATION: Tissue Source: B - Antrum biopsy Clinical Info: Family history malignant neoplasm of colon; GERD Specimen Number: [id number] CPT code: 40422 METHODOLOGY: Deparaffinized sections of prefer/formalin-fixed tissue or PAP/DQ stained slides are incubated with monoclonal/polyclonal antibodies/oligonucleotide probes. Localization is made via biotin free immunoperoxidase method. Appropriate controls are performed and reacted as expected. Results on target cell population are indicated in the following table: RESULTS: ANTIBODY / CLONE RESULT Block B H Pylori (polyclonal) negative These tests were developed and their performance characteristics determined by [facility]. They may not have been cleared or approved by the U.S. Food and Drug Administration. The FDA has determined that such clearance or approval is not necessary. INTERPRETATION: B. Antrum biopsy: Negative for Helicobacter pylori organisms. AM:lew 11/13/2020
--- NOTE | 2020-11-12 07:00 | COLBX_PTH ---
PATIENT: JUNIOR TSE LOC: EN U#:[id number] AGE/SX: 50/F ROOM: RE11/12/[address]: Dr. Mik Courtney MD : 1970 BED: DIS: 11/12/2020 SPEC #: [id number] RECD: 11/12/20 11:06 STATUS: KEILA ALCALA #: [id number] ROVERTO: 11/12/20 07:[address]: Mik Courtney DEPT: SURGICAL PATHOLOGY RECD BY: Fatimah Cervantes ENTERED: 11/12/20 12:55 SP TYPE: COLON BX OTHR DR: Dr. Zak Powell MD Tissues: A - Duodenum, NOS B - Gastric mucous membrane C - Esophagus, NOS D - Esophagus, NOS E - SPLENIC FLEXURE F - Descending colon G - Descending colon Procedures: Special Stain Group II Surgery Specimen Level IV Alcian Blue/PAS (control) HEADER OPERATION: Colonoscopy, EGD ([facility] [place]) PRE-OP DIAGNOSIS: Family history of malignant neoplasm of colon; GERD TISSUE SUBMITTED: A - Duodenum biopsy, B - Antrum biopsy for H. pylori and path, C - Distal esophagus biopsy, D - Mid esophagus biopsy, E - Splenic flexure polyp biopsy, F - Descending colon polyp biopsy, G - Descending colon polyp biopsy #2 MICROSCOPIC DIAGNOSIS A. Duodenum, biopsy: Suggestive of Josephine gland hyperplasia. B. Gastric antrum, biopsy: Chronic gastritis. See comment. C. Distal esophagus, biopsy: Consistent with reflux esophagitis. Gastroesophageal junctional mucosa with chronic inflammation. No evidence of goblet cell metaplasia. See comment. D. Mid esophagus, biopsy: No pathologic change. E. Colonic polyp at splenic flexure, biopsy: Fragments of tubular adenoma. F. Descending colon polyp, biopsy: Tubular adenoma. G. Descending colon polyp, biopsy: Tubular adenoma. AM:lew 11/13/2020 COMMENT B. The results of immunohistochemistry for Helicobacter pylori will be reported separately ([id number]). C. Alcian blue/PAS stain with matched control supports the above diagnosis. MICROSCOPIC DESCRIPTION Slides are reviewed. GROSS DESCRIPTION A - Received in fixative is one container labeled with the patient's name and designated duodenum biopsy. The specimen consists of one irregular fragment of light altamirano soft tissue that measures 0.3 x 0.3 x 0.1 cm. The specimen is totally submitted in one cassette. B - Received in fixative is one container labeled with the patient's name and designated antrum biopsy. The specimen consists of one irregular fragment of light altamirano soft tissue that measures 0.3 x 0.3 x 0.1 cm. The specimen is totally submitted in one cassette. C - Received in fixative is one container labeled with the patient's name and designated distal esophagus. The specimen consists of multiple irregular fragments of light altamirano soft tissue that in aggregate measure 1 x 0.6 x 0.1 cm. The specimen is totally submitted in one cassette. D - Received in fixative is one container labeled with the patient's name and designated mid esophagus biopsy. The specimen consists of one irregular fragment of light altamirano soft tissue that measures 0.3 x 0.3 x 0.1 cm. The specimen is totally submitted in one cassette. E - Received in fixative is one container labeled with the patient's name and designated splenic flexure biopsy. The specimen consists of two irregular fragments of light altamirano soft tissue that in aggregate measure 0.6 x 0.3 x 0.1 cm. The specimen is totally submitted in one cassette. F - Received in fixative is one container labeled with the patient's name and designated descending colon polyp biopsy. The specimen consists of one irregular fragment of light altamirano soft tissue that measures 0.3 x 0.3 x 0.1 cm. The specimen is totally submitted in one cassette. G - Received in fixative is one container labeled with the patient's name and designated descending colon polyp biopsy #2. The specimen consists of two irregular fragments of light altamirano soft tissue that in aggregate measure 0.4 x 0.3 x 0.1 cm. The specimen is totally submitted in one cassette. / SJ:rg 11/12/20 TC:3 CPT: 58453 x7, 80068
--- NOTE | 2020-11-12 07:38 | OP.EGD_ITS ---
Patient Name: Marilynn Florian Procedure Date: 11/12/2020 6:49 AM Date of : 1970 Age: 50 Procedure: Upper GI endoscopy Indications: Suspected gastro-esophageal reflux disease Providers: Mik Courtney MD Referring MD: Damian Powell Medicines: See the Anesthesia note for documentation of the administered medications Complications: No immediate complications. Procedure: Pre-Anesthesia Assessment: - Prior to the procedure, a History and Physical was performed, and patient medications and allergies were reviewed. The patient's tolerance of previous anesthesia was also reviewed. The risks and benefits of the procedure and the sedation options and risks were discussed with the patient. All questions were answered, and informed consent was obtained. Prior Anticoagulants: The patient has taken no previous anticoagulant or antiplatelet agents. ASA Grade Assessment: II - A patient with mild systemic disease. After reviewing the risks and benefits, the patient was deemed in satisfactory condition to undergo the procedure. After obtaining informed consent, the endoscope was passed under direct vision. Throughout the procedure, the patient's blood pressure, pulse, and oxygen saturations were monitored continuously. The gastroscope was introduced through the mouth, and advanced to the second part of duodenum. The upper GI endoscopy was accomplished without difficulty. The patient tolerated the procedure well. Scope In: 6:58:02 AM Scope Out: 7:04:04 AM Total Procedure Duration Time 0 hours 6 minutes 2 seconds Findings: A small hiatal hernia was present. Esophagitis with no bleeding was found 39 cm from the incisors. Biopsies were taken with a cold forceps for histology. The mid esophagus was normal. Biopsies were taken with a cold forceps for histology. Diffuse mildly erythematous mucosa without bleeding was found in the gastric antrum. Biopsies were taken with a cold forceps for histology. The examined duodenum was normal. Biopsies were taken with a cold forceps for histology. Impression: - Small hiatal hernia. - Reflux esophagitis. Biopsied. - Normal mid esophagus. Biopsied. - Erythematous mucosa in the antrum. Biopsied. - Normal examined duodenum. Biopsied. Recommendation: - Await pathology results. - Discharge patient to home. - Resume previous diet. - Continue present medications. - Await pathology results. - Telephone my office for pathology results in 1 week. Findings all very mild. Continue medical treatment while awaiting pathology. Procedure Code(s): --- Professional --- 74270, Esophagogastroduodenoscopy, flexible, transoral; with biopsy, single or multiple Diagnosis Code(s): --- Professional --- K44.9, Diaphragmatic hernia without obstruction or gangrene K21.0, Gastro-esophageal reflux disease with esophagitis K31.89, Other diseases of stomach and duodenum CPT copyright 2017 [employer]. All rights reserved. The codes documented in this report are preliminary and upon cleaners review may be revised to meet current compliance requirements. Mik Courtney MD 11/12/2020 7:38:11 AM This report has been signed electronically. Number of Addenda: 0 Note Initiated On: 11/12/2020 6:49 AM
--- NOTE | 2020-11-12 07:38 | OP.CCLET_ITS ---
11/12/2020 Damian Powell [address] [place] [address] Re : Upper GI endoscopy procedure for Marilynn Florian Dear Dr. Powell This procedure was performed on Thursday, November 12, 2020. My impressions and recommendations are as follows: Impressions : - Small hiatal hernia. - Reflux esophagitis. Biopsied. - Normal mid esophagus. Biopsied. - Erythematous mucosa in the antrum. Biopsied. - Normal examined duodenum. Biopsied. Recommendations : - Await pathology results. - Discharge patient to home. - Resume previous diet. - Continue present medications. - Await pathology results. - Telephone my office for pathology results in 1 week. Findings all very mild. Continue medical treatment while awaiting pathology. My findings are described in the full procedure note, which is enclosed. If I can be of further assistance, please feel free to contact me at Doctor phone number(s): Work: . Sincerely, Mik Courtney MD 11/12/2020 7:38:11 AM This report has been signed electronically.
--- NOTE | 2020-11-12 07:43 | OP.CCLET_ITS ---
11/12/2020 Damian Powell [address] [place] [address] Re : Colonoscopy procedure for Marilynn Florian Dear Dr. Powell This procedure was performed on Thursday, November 12, 2020. My impressions and recommendations are as follows: Impressions : - One 5 mm polyp at the splenic flexure, removed with a cold biopsy forceps. Resected and retrieved. - One 4 mm polyp in the descending colon, removed with a cold biopsy forceps. Resected and retrieved. - One 6 mm polyp in the descending colon, removed with a cold biopsy forceps. Resected and retrieved. Clip was placed. - Diverticulosis in the sigmoid colon and in the descending colon. Recommendations : - Discharge patient to home. - Resume previous diet. - Continue present medications. - Repeat colonoscopy in 5 years for surveillance based on pathology results. - Telephone my office for pathology results in 1 week. My findings are described in the full procedure note, which is enclosed. If I can be of further assistance, please feel free to contact me at Doctor phone number(s): Work: . Sincerely, Mik Courtney MD 11/12/2020 7:43:07 AM This report has been signed electronically.
--- NOTE | 2020-11-12 07:43 | OP.COLON_ITS ---
Patient Name: Marilynn Florian Procedure Date: 11/12/2020 7:05 AM Date of : 1970 Age: 50 Procedure: Colonoscopy Indications: Colon cancer screening in patient at increased risk: Colorectal cancer in father Providers: Mik Courtney MD Referring MD: Damian Powell Medicines: See the Anesthesia note for documentation of the administered medications Patient Profile: Last Colonoscopy: none. The patient's first colonoscopy is today. Complications: No immediate complications. Procedure: Pre-Anesthesia Assessment: - Prior to the procedure, a History and Physical was performed, and patient medications and allergies were reviewed. The patient's tolerance of previous anesthesia was also reviewed. The risks and benefits of the procedure and the sedation options and risks were discussed with the patient. All questions were answered, and informed consent was obtained. Prior Anticoagulants: The patient has taken no previous anticoagulant or antiplatelet agents. ASA Grade Assessment: II - A patient with mild systemic disease. After reviewing the risks and benefits, the patient was deemed in satisfactory condition to undergo the procedure. After I obtained informed consent, the scope was passed under direct vision. Throughout the procedure, the patient's blood pressure, pulse, and oxygen saturations were monitored continuously. The adult colonoscope was introduced through the anus and advanced to the cecum, identified by appendiceal orifice and ileocecal valve. The colonoscopy was performed without difficulty. The patient tolerated the procedure well. The quality of the bowel preparation was good. The ileocecal valve and the appendiceal orifice were photographed. Scope In: 7:06:32 AM Scope Withdrawal Time 0 hours 14 minutes 6 seconds Scope Out: 7:28:32 AM Total Procedure Duration Time 0 hours 22 minutes 0 seconds Findings: Lax anal tone A 5 mm polyp was found in the splenic flexure. The polyp was sessile. The polyp was removed with a cold biopsy forceps. Resection and retrieval were complete. A 4 mm polyp was found in the descending colon. The polyp was sessile. The polyp was removed with a cold biopsy forceps. Resection and retrieval were complete. A 6 mm polyp was found in the descending colon. The polyp was sessile. The polyp was removed with a cold biopsy forceps. Resection and retrieval were complete. To prevent bleeding post-intervention, one hemostatic clip was successfully placed. There was no bleeding at the end of the procedure. Multiple diverticula were found in the sigmoid colon and descending colon. Impression: - One 5 mm polyp at the splenic flexure, removed with a cold biopsy forceps. Resected and retrieved. - One 4 mm polyp in the descending colon, removed with a cold biopsy forceps. Resected and retrieved. - One 6 mm polyp in the descending colon, removed with a cold biopsy forceps. Resected and retrieved. Clip was placed. - Diverticulosis in the sigmoid colon and in the descending colon. Recommendation: - Discharge patient to home. - Resume previous diet. - Continue present medications. - Repeat colonoscopy in 5 years for surveillance based on pathology results. - Telephone my office for pathology results in 1 week. Procedure Code(s): --- Professional --- 77958, Colonoscopy, flexible; with biopsy, single or multiple Diagnosis Code(s): --- Professional --- Z80.0, Family history of malignant neoplasm of digestive organs D12.3, Benign neoplasm of transverse colon (hepatic flexure or splenic flexure) D12.4, Benign neoplasm of descending colon K57.30, Diverticulosis of large intestine without perforation or abscess without bleeding CPT copyright 2017 [employer]. All rights reserved. The codes documented in this report are preliminary and upon account advisor review may be revised to meet current compliance requirements. Mik Courtney MD 11/12/2020 7:43:07 AM This report has been signed electronically. Number of Addenda: 0 Note Initiated On: 11/12/2020 7:05 AM
== END 2020-11-12 08:20 | disposition home or self-care (01) ==
LOC: EN 06:06 → AC 06:07
PROVIDERS: PCP Family Medicine; Referring Provider Family Medicine; Visit Provider Surgery
PROC: 0DJD8ZZ Inspection of Lower Intestinal Tract, Via Natural or Artificial Opening Endoscopic (ICD-10-PCS; CPT 45378; principal; 2020-11-12 06:55)
DX: Z12.11 Encounter for screening for malignant neoplasm of colon (principal); D12.4 Benign neoplasm of descending colon; D12.3 Benign neoplasm of transverse colon; K29.50 Unspecified chronic gastritis without bleeding; K57.30 Diverticulosis of large intestine without perforation or abscess without bleeding; K21.00 Gastro-esophageal reflux disease with esophagitis, without bleeding; K44.9 Diaphragmatic hernia without obstruction or gangrene; K59.09 Other constipation; E66.9 Obesity, unspecified; M19.90 Unspecified osteoarthritis, unspecified site; M06.9 Rheumatoid arthritis, unspecified; Z79.899 Other long term (current) drug therapy; Z80.0 Family history of malignant neoplasm of digestive organs; Z68.34 Body mass index [BMI] 34.0-34.9, adult; Z86.718 Personal history of other venous thrombosis and embolism; Z87.11 Personal history of peptic ulcer disease
CPT/HCPCS: 43239; 45380; 88305; 88313; 88342; J7120; J2405

== ENCOUNTER → 2020-11-18 15:48 | Outpatient (CLI) | payer OTHER, SELFPAY ==
[2020-11-12 06:30] VITALS: BMI 34.4
--- NOTE | 2020-11-18 15:51 | BI_ITS ---
MAMMOGRAPHY - BILATERAL SCREENING REASON FOR EXAM: Female, 50 years old. Routine annual screening examination. PERTINENT HISTORY: Non-contributory. TECHNIQUE: Digital bilateral breast nikia (3D mammographic acquisition) in the CC and MLO projections. 2-D mediolateral oblique (MLO) and craniocaudad (CC) views of both breasts were obtained. CAD: Full Field Digital Mammography with Computer Added Detection was performed. COMPARISON: Comparison is made with prior study dated 10/23/2019 and 10/19/2018. FINDINGS: Breast Composition: There are scattered areas of fibroglandular density. There are no dominant masses or suspicious calcifications. Stable small benign-appearing bilateral axillary lymph nodes. No other significant abnormalities are identified. There has been no significant change since the prior study. BI/SCRN MAMM (CAD)W/NIKIA BILAT IMPRESSION: Stable bilateral screening mammogram. Yearly follow-up mammogram recommended. (A) ASSESSMENT CATEGORY: BIRADS Category 2: Benign. A letter regarding these results will be sent to the patient by the facility within 30 days. Approximately 10% of breast cancers are not detected by mammography. A normal mammogram should not delay biopsy of a clinically suspicious abnormality. [id number] Electronically Signed: Ned Cheng MD at 8:06 EDT , Service support ,
== END ==
PROVIDERS: PCP Family Medicine; Referring Provider Student in an Organized Health Care Education/Training Program; Visit Provider Student in an Organized Health Care Education/Training Program
DX: Z12.31 Encounter for screening mammogram for malignant neoplasm of breast (principal)
CPT/HCPCS: 77063; 77067

== ENCOUNTER → 2021-07-30 10:54 | Outpatient (CLI) | payer OTHER, SELFPAY ==
[2021-07-30 12:25] LABS: Absolute Lymphocyte Count 2.74 X10^3/uL (0.83-4.51); Basophil# 0.04 X10^3/uL; Basophil% 0.5 % (0-1); Eosinophil# 0.31 X10^3/uL; Hematocrit 41.4 % (37-47); Hemoglobin 14.3 g/dL (12.0-15.0); Lymphocyte # 2.74 X10^3/ul (0.83-4.51); Lymphocyte % 35.5 % (19-41); Mean Corp Hgb Conc 34.5 g/dL (32-36); Mean Corpuscular Hgb 30.7 pg (27.0-32.0); Mean Corpuscular Volume 88.8 fL (81-99); Mean Platelet Vol. 9.7 fl (6.2-12.0); Monocyte# 0.61 X10^3/uL; Monocyte% 7.9 % (0-10); NRBC Flagged by Analyzer 0 % (0-5); Neutrophil # 3.98 X10^3/uL (2.7-7.7); Neutrophil % 51.7 % (47-70); Platelet Count 237 K/mm3 (150-450); RBC Distribution Width CV 12.1 % (11.6-14.6); Red Blood Count 4.66 M/mm3 (4.2-5.4); White Blood Count 7.7 K/mm3 (4.4-11.0)
[2021-07-30 12:41] LABS: Vitamin B12 1705 pg/mL (211-911); Vitamin D,25 Hydroxy 61.4 ng/mL
[2021-07-30 12:52] LABS: AST(SGOT) 41 U/L (15-37); Alanine Aminotransfer ALT/SGPT 70 U/L (13-56); Albumin, Serum 3.8 g/dL (3.2-5.0); Alkaline Phosphatase 58 U/L (45-117); Anion Gap 8 (5-15); BUN 12 mg/dL (7-18); BUN/Creat Ratio 16.4 RATIO (10-20); CRP 7.38 mg/L (0.0-3.0); Calcium,Total 8.9 mg/dL (8.5-10.1); Chloride 102 mmol/L (98-107); Creatinine, Serum 0.73 mg/dL (0.55-1.02); EST Glomerular Filtration Rate 89 mL/min (>60); Est Glom Filt Rate - Afr Amer 108 mL/min (>60); Glucose 88 mg/dL (74-106); Iron 102 ug/dL (50-170); Potassium 3.7 mmol/L (3.5-5.1); Protein, Total 7.8 g/dL (6.4-8.2); Sodium Level 138 mmol/L (136-145); Thyroid Stim Hormone (TSH) 2.53 uIU/mL (0.358-3.74)
[2021-07-30 13:23] LABS: Erythrocyte Sedimentation Rate 7 mm/hr (0-30)
== END ==
PROVIDERS: PCP Family Medicine; Visit Provider Family Medicine
DX: R53.83 Other fatigue (principal)
CPT/HCPCS: 36415; 80053; 82306; 82607; 83540; 84443; 85025; 85652; 86140

== ENCOUNTER 2021-10-23 16:35 | Outpatient (CLI) | payer OTHER, SELFPAY ==
[2021-10-30 18:30] LABS: HPV APTIMA, High Risk Negative (Negative)
== END 2021-10-23 23:59 | disposition home or self-care (01) ==
LOC: LABSPEC 16:36
PROVIDERS: PCP Family Medicine; Referring Provider Student in an Organized Health Care Education/Training Program; Visit Provider Student in an Organized Health Care Education/Training Program
DX: Z12.4 Encounter for screening for malignant neoplasm of cervix (principal)
CPT/HCPCS: 87624; 88175; G0145

== ENCOUNTER 2021-11-10 09:01 | Outpatient (CLI) | payer OTHER, SELFPAY ==
[2021-11-10 10:49] LABS: ALB/GLOB Ratio 0.9 RATIO (0.9-2.4); AST(SGOT) 42 U/L (15-37); Alanine Aminotransfer ALT/SGPT 70 U/L (13-56); Albumin, Serum 3.5 g/dL (3.2-5.0); Alkaline Phosphatase 71 U/L (45-117); Anion Gap 4 (5-15); BUN 15 mg/dL (7-18); BUN/Creat Ratio 17.7 RATIO (10-20); Calcium,Total 8.8 mg/dL (8.5-10.1); Chloride 107 mmol/L (98-107); Cholesterol 160 mg/dL (200); Creatinine, Serum 0.85 mg/dL (0.55-1.02); EST Glomerular Filtration Rate 75 mL/min (>60); Est Glom Filt Rate - Afr Amer 91 mL/min (>60); Globulin 3.9 g/dL (2.2-4.2); Glucose 101 mg/dL (74-106); High Density Lipoprotein 29 mg/dL; Potassium 4.2 mmol/L (3.5-5.1); Protein, Total 7.4 g/dL (6.4-8.2); Sodium Level 136 mmol/L (136-145); Triglycerides 186 mg/dL; Very Low Density Lipoprotein 37 mg/dL (5-40)
== END 2021-11-10 23:59 | disposition home or self-care (01) ==
LOC: MFPLAB 09:09
PROVIDERS: PCP Family Medicine; Referring Provider Family Medicine; Visit Provider Family Medicine
DX: R79.89 Other specified abnormal findings of blood chemistry (principal); Z13.220 Encounter for screening for lipoid disorders
CPT/HCPCS: 36415; 80053; 80061

== ENCOUNTER → 2021-11-20 | Outpatient (CLI) | payer OTHER, SELFPAY ==
--- NOTE | 2021-11-20 15:21 | BI_ITS ---
MAMMOGRAPHY - BILATERAL SCREENING 3-D TOMOSYNTHESIS REASON FOR EXAM: Female, 51 years old. SCREENING PERTINENT HISTORY: No significant family history. TECHNIQUE: 2-D mammograms and 3-D Tomosynthesis of the breast (s) were performed. CAD was performed. COMPARISON: 11/18/2020 FINDINGS: The breast composition is composed of scattered fibroglandular density. Scattered benign calcifications are seen. No dense spiculated masses or suspicious microcalcifications are identified. No architectural distortion is identified. There is no skin thickening or retraction. There has been no significant change since the prior study. BI/SCRN MAMM (CAD)W/NIKIA BILAT IMPRESSION: No mammographic signs of malignancy. Routine yearly mammograms recommended. ASSESSMENT CATEGORY: BIRADS Category 1: Negative. A letter regarding these results will be sent to the patient by the facility within 30 days. FOLLOW UP RECOMMENDATION: Yearly follow up mammogram recommended. (A) Approximately 10% of breast cancers are not detected by mammography. A normal mammogram should not delay biopsy of a clinically suspicious abnormality. Electronically Signed: Patrice Velázquez MD at 16:52 EDT ,
== END | disposition home or self-care (01) ==
LOC: OPBI 15:19
PROVIDERS: PCP Family Medicine; Visit Provider Student in an Organized Health Care Education/Training Program
DX: Z12.31 Encounter for screening mammogram for malignant neoplasm of breast (principal)
CPT/HCPCS: 77063; 77067

== ENCOUNTER 2022-03-30 18:58 | Observation (INO) | payer OTHER, SELFPAY ==
[2022-03-30] VITALS (8 sets, daily range): BP systolic 111–137; BP diastolic 70–87; PULSE 77–98; RESP 14–18; TEMP 35.8–37.5; O2SAT 92–99; BMI 34.2; BMI 33.7
--- NOTE | 2022-03-30 19:13 | EDS_ITS ---
HPI HPI - GI History of Present Illness Chief Complaint: Abd Pain Narrative Narrative: 51-year-old female presents with right lower quadrant abdominal pain that she is had since yesterday. She relates history that over the last few weeks she has had bloated feeling and had more epigastric pain. Yesterday she had stomach pain that radiated down to the right lower quadrant. She saw her primary care physician, Dr. Angel spaulding, who sent her for CT scan. Of note, she presents to the emergency department with CT results as an outpatient that is consistent with acute appendicitis. She states she has nauseated but has not vomited. Last normal bowel movement was 2 days ago. She does not have menstrual periods. She denies any fevers or chills. No other symptoms. [facility] Medical History Anxiety Chronic constipation Family history of malignant neoplasm of colon in father Gastroesophageal reflux disease History of DVT (deep vein thrombosis) History of peptic ulcer disease HTN (hypertension) Osteoarthritis Rheumatoid arthritis Home Medications Bacillus coagulans 250 million cell chewable tablet 1 ea PO DAILY 07/21/17 [History Last Taken Unknown] multivitamin 1 ea PO DAILY 07/21/17 [History Last Taken Unknown] omega-3 fatty acids-fish oil 300 mg-1,000 mg capsule 1 ea PO DAILY 07/21/17 [History Last Taken Unknown] fluticasone propionate 50 mcg/actuation nasal spray,suspension 1 puff intranasal DAILY 10/08/20 [History Last Taken Unknown] omeprazole magnesium 20 mg capsule,delayed release 20 mg PO DAILY 10/08/20 [History Last Taken Unknown] cholecalciferol (vitamin D3) 25 mcg (1,000 unit) chewable tablet 1,000 unit PO DAILY 11/06/20 [History Last Taken Unknown] magnesium oxide 200 mg PO DAILY 11/06/20 [History Last Taken Unknown] vitamin C 50 mg-biotin 1,250 mcg chewable tablet 1 each PO DAILY 11/06/20 [History Last Taken Unknown] Allergy/AdvReac Type Severity Reaction Status Date / Time bee venom protein (honey bee) Allergy Swelling Verified 03/30/22 18:58 Family History Sister Cancer leukemia Hypertension Mother Heart disease Surgical History History of bone marrow donation History of carpal tunnel release History of cholecystectomy History of colonoscopy History of esophagogastroduodenoscopy (EGD) History of salpingo-oophorectomy Social History Smoking Status: Never smoker alcohol intake: never substance use type: does not use ROS ROS ED ROS Narrative Constitutional: No fever, no chills. HEENT: No sore throat. No neck pain. No loss of vision. No rhinorrhea. Cardiovascular: No chest pain. No palpitations. No pedal edema. Respiratory: No cough, no shortness of breath. Abdominal: Right lower quadrant abdominal pain. Positive nausea. No vomiting. Genitourinary: No dysuria. No hematuria. Musculoskeletal: No myalgias. No arthralgias. Neurologic: No headaches. No dizziness. No lightheadedness. Skin: No rash. No change in color. Psychiatric: No depression. No anxiety. EXAM Physical Exam Narrative Exam Narrative: Afebrile. Vital signs noted. HEENT: Normocephalic. Atraumatic. PERRL, EOMI. Neck soft and supple. No point tenderness or step off. Cardiovascular: Regular rate and rhythm. No murmurs, rubs, or gallops appreciated. Respiratory: No tachypnea. Lungs clear to auscultation bilaterally. Gastrointestinal: Abdomen soft, tenderness to palpation and right lower quadrant, with normoactive bowel sounds. No rebound or guarding. Negative heel strike. Negative Rovsing sign. Neurological: Awake. Alert. Nonfocal, nonlateralizing. Skin: No rash. Normal color. No pallor. Musculoskeletal: No pedal edema. Full range of motion extremities. Const Vital Signs: 03/30/22 18:59 Temperature 98.2 F Temperature Source Temporal Pulse Rate 98 Respiratory Rate 14 Blood Pressure 137/87 H Blood Pressure Mean 103 Pulse Ox 99 Oxygen Delivery Method Room Air MDM MDM MDM Narrative Medical decision making narrative: I reviewed her CT scan results from her outpatient scan. She has a tubular, thick-walled appendix greater than 14 mm consistent with acute appendicitis. I ordered a CBC, CMP, and a urinalysis. She was administered Zosyn, morphine, and ondansetron. I discussed the patient with Dr. Bortz on for general surgery. He will see the patient in the ED and most likely take her to the OR. Her CBC has returned with an elevated white count of 17.3. Disposition is admit in stable condition. Lab Data Attestation: I reviewed the patient's lab results. Labs: Laboratory Results - last 24 hr 03/30/22 19:20 WBC 17.3 H RBC 4.25 Hgb 13.1 Hct 38.2 MCV 89.9 MCH 30.8 MCHC 34.3 RDW Std Deviation 41.1 RDW Coeff of Ryan 12.5 Plt Count 221 MPV 9.4 Immature Gran % (Auto) 0.400 Neut % (Auto) 71.3 H Lymph % (Auto) 20.0 [place] % (Auto) 7.6 Eos % (Auto) 0.5 Baso % (Auto) 0.2 Absolute Neuts (auto) 12.3 H Absolute Lymphs (auto) 3.46 Nucleated RBC % 0 Discharge Plan Dx/Rx/DC Orders Clinical Impression: Acute appendicitis, Nausea Disposition Disposition: Acute Care Hospital [facility]
[2022-03-30 19:27] LABS: Absolute Lymphocyte Count 3.46 X10^3/uL (0.83-4.51); Absolute Neutrophil Count 12.3 X10^3/uL (2.0-7.7); Basophil# 0.04 X10^3/uL; Basophil% 0.2 % (0-1); Eosinophil# 0.08 X10^3/uL; Eosinophils% 0.5 % (0-5); Hematocrit 38.2 % (37-47); Hemoglobin 13.1 g/dL (12.0-15.0); Lymphocyte # 3.46 X10^3/ul (0.83-4.51); Mean Corp Hgb Conc 34.3 g/dL (32-36); Mean Corpuscular Hgb 30.8 pg (27.0-32.0); Mean Corpuscular Volume 89.9 fL (81-99); Mean Platelet Vol. 9.4 fl (6.2-12.0); Monocyte# 1.32 X10^3/uL; Monocyte% 7.6 % (0-10); NRBC Flagged by Analyzer 0 % (0-5); Neutrophil # 12.32 X10^3/uL (2.7-7.7); Neutrophil % 71.3 % (47-70); Platelet Count 221 K/mm3 (150-450); RBC Distribution Width CV 12.5 % (11.6-14.6); RBC Distribution Width SD 41.1 fl (35.1-43.9); Red Blood Count 4.25 M/mm3 (4.2-5.4); White Blood Count 17.3 K/mm3 (4.4-11.0)
[2022-03-30] MEDS: 0.9% Normal Saline 1,000 ML 1000 ML IV (19:27)
[2022-03-30] MEDS: Morphine 4 MG/ML Syringe IV (19:27)
[2022-03-30] MEDS: Ondansetron 4 MG/2 ML Vial IV (19:27)
[2022-03-30 19:36] LABS: Bacteria 0 SEEN /hpf (None Seen); Mucous, Urine 0 SEEN /hpf (<or=2+); Red Blood Cells-Urine 0 SEEN /hpf (0-5); White Blood Cells 0 SEEN /hpf (0-5)
[2022-03-30 19:40] LABS: Color, Urine Straw (Yellow); Glucose, Dipstick Normal (Normal); Ketone-Dipstick Negative (Negative); Leukocyte Esterase-Dipstick Negative /ul (Negative); Nitrite-Dipstick Negative (Negative); Occult Blood-Urine 25 /ul (Negative); Protein-Dipstick Negative (Negative); Specific Gravity, Urine 1.005 (1.002-1.030); Urine Bilirubin Dipstick Negative (Negative); Urine Clarity Clear (Clear); Urine Urobilinogen Normal (Normal)
[2022-03-30 19:42] LABS: ALB/GLOB Ratio 0.9 RATIO (0.9-2.4); AST(SGOT) 28 U/L (15-37); Alanine Aminotransfer ALT/SGPT 66 U/L (13-56); Albumin, Serum 3.8 g/dL (3.2-5.0); Alkaline Phosphatase 50 U/L (45-117); Anion Gap 8 (5-15); BUN 10 mg/dL (7-18); BUN/Creat Ratio 10.8 RATIO (10-20); Calcium,Total 8.8 mg/dL (8.5-10.1); Chloride 100 mmol/L (98-107); Creatinine, Serum 0.92 mg/dL (0.55-1.02); EST Glomerular Filtration Rate 68 mL/min (>60); Est Glom Filt Rate - Afr Amer 82 mL/min (>60); Estimated Creatinine Clearance 67.72 ml/min; Globulin 4.2 g/dL (2.2-4.2); Glucose 92 mg/dL (74-106); Potassium 3.4 mmol/L (3.5-5.1); Sodium Level 134 mmol/L (136-145)
[2022-03-30 19:59] LABS: Squamous Epithelial Cells - UA 0-5 SEEN /hpf (5-10)
--- NOTE | 2022-03-30 20:10 | PCM.HP.STD ---
HPI - General General Date of Admission: 03/30/22 Date of Service: 03/30/22 Chief Complaint: Acute onset abdominal pain HPI Narrative JUNIOR TSE, is a 51 F who presents to [facility] after evaluation earlier today to with PCP, Dr. Zhang for acute onset abdominal pain that began yesterday. Patient states that she has always had belly issues and describes a longstanding history of constipation as well as abdominal discomfort for which she has undergone numerous colonoscopies. However, yesterday she states she had some upper abdominal pain that gradually migrated to her right lower quadrant and was associated with nausea but no vomiting or diarrhea. States the pain was far more intense than anything she is experienced previously. She also notes an associated fever of 101.5 Fahrenheit this morning. She does add that she experienced some uncomfortable bloating approximately 2 weeks ago and is not sure if this is somehow connected. Given this presentation, CT scan of the abdomen pelvis was ordered as an outpatient and she was found to have a greater than 14 mm thickened appendix. Emergency medicine obtained biochemistries that showed leukocytosis of 17,000 with left shift. Patient has a history of recent colonoscopy with Dr. Courtney on 11/12/2020. This found 3 polyps (1 splenic flexure and 2 descending colon polyps?all tubular adenomas by pathology) and diverticulosis. Patient has also required cholecystectomy for cholelithiasis in 2011. 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 [facility] Medical History Anxiety Chronic constipation Family history of malignant neoplasm of colon in father Gastroesophageal reflux disease History of DVT (deep vein thrombosis) History of peptic ulcer disease HTN (hypertension) Osteoarthritis Rheumatoid arthritis Home Medications Bacillus coagulans 250 million cell chewable tablet 1 ea PO DAILY 07/21/17 [History Last Taken Unknown] multivitamin 1 ea PO DAILY 07/21/17 [History Last Taken Unknown] omega-3 fatty acids-fish oil 300 mg-1,000 mg capsule 1 ea PO DAILY 07/21/17 [History Last Taken Unknown] fluticasone propionate 50 mcg/actuation nasal spray,suspension 1 puff intranasal DAILY 10/08/20 [History Last Taken Unknown] omeprazole magnesium 20 mg capsule,delayed release 20 mg PO DAILY 10/08/20 [History Last Taken Unknown] cholecalciferol (vitamin D3) 25 mcg (1,000 unit) chewable tablet 1,000 unit PO DAILY 11/06/20 [History Last Taken Unknown] magnesium oxide 200 mg PO DAILY 11/06/20 [History Last Taken Unknown] vitamin C 50 mg-biotin 1,250 mcg chewable tablet 1 each PO DAILY 11/06/20 [History Last Taken Unknown] Allergy/AdvReac Type Severity Reaction Status Date / Time bee venom protein (honey bee) Allergy Swelling Verified 03/30/22 18:58 Family History Sister Cancer leukemia Hypertension Mother Heart disease Surgical History History of bone marrow donation History of carpal tunnel release History of cholecystectomy History of colonoscopy History of esophagogastroduodenoscopy (EGD) History of salpingo-oophorectomy Social History Smoking Status: Never smoker alcohol intake: never substance use type: does not use ROS Constitutional Constitutional: Reports fever(s); Denies change in weight Gastrointestinal Gastrointestinal: Reports abdominal pain, constipation, dyspepsia and nausea; Denies diarrhea, hematochezia, melena or vomiting Genitourinary Genitourinary: Denies dysuria Musculoskeletal Musculoskeletal: Reports joint pain Vital Signs Vital Signs Vital Signs: 03/30/22 18:59 Temperature 98.2 F Temperature Source Temporal Pulse Rate 98 Respiratory Rate 14 Blood Pressure 137/87 H Blood Pressure Mean 103 Pulse Ox 99 Oxygen Delivery Method Room Air Weight Weight: 212 lb Body Mass Index (BMI) 34.2 Physical Exam Const alert, oriented x3 and no apparent distress Resp normal respiratory effort GI GI Narrative: Mildly distended, well-healed port site incision located in infraumbilical position. Tenderness to palpation over McBurney's point. Positive rebound tenderness. Positive psoas sign. Negative obturator sign. Results Lab / Micro Data Result Diagrams: 03/30/22 19:20 03/30/22 19:20 Labs: Laboratory Results - last 24 hr 03/30/22 19:20: WBC 17.3 H, RBC 4.25, Hgb 13.1, Hct 38.2, MCV 89.9, MCH 30.8, MCHC 34.3, RDW Std Deviation 41.1, RDW Coeff of Ryan 12.5, Plt Count 221, MPV 9.4, Immature Gran % (Auto) 0.400, Neut % (Auto) 71.3 H, Lymph % (Auto) 20.0, [place] % (Auto) 7.6, Eos % (Auto) 0.5, Baso % (Auto) 0.2, Absolute Neuts (auto) 12.3 H, Absolute Lymphs (auto) 3.46, Nucleated RBC % 0 03/30/22 19:20: Sodium 134 L, Potassium 3.4 L, Chloride 100, Carbon Dioxide 26.0, Anion Gap 8, BUN 10, Creatinine 0.92, Estim Creat Clear Calc 67.72, Est GFR (MDRD) Af Amer 82, Est GFR (MDRD) Non-Af 68, BUN/Creatinine Ratio 10.8, Glucose 92, Calcium 8.8, Total Bilirubin 1.30 H, AST 28, ALT 66 H, Alkaline Phosphatase 50, Total Protein 8.0, Albumin 3.8, Globulin 4.2, Albumin/Globulin Ratio 0.9 03/30/22 19:20: Urine Color Straw, Urine Clarity Clear, Urine pH 7.0, Ur Specific [place] 1.005, Urine Protein Negative, Urine Glucose (UA) Normal, Urine Ketones Negative, Urine Occult Blood 25 H, Urine Nitrite Negative, Urine Bilirubin Negative, Urine Urobilinogen Normal, Ur Leukocyte Esterase Negative, Urine RBC 0 SEEN, Urine WBC 0 SEEN, Ur Squamous Epith Cells 0-5 SEEN, Urine Bacteria 0 SEEN, Urine Mucus 0 SEEN Assessment & Plan Assessment/Plan (1) Acute appendicitis: PLAN: This is a 51-year-old female, who is diagnosed with chronic constipation and stills disease (not 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 A dilated and thick-walled appendix (measured greater than 14 mm by radiology) was visualized on CT imaging of the abdomen pelvis obtained earlier today. Follow-up laboratories also suggest inflammatory/infectious process with a leukocytosis of 17,000. Treatment options were discussed and laparoscopic appendectomy was recommended. Patient is accepting of this recommendation and we will therefore plan to proceed emergently to the operating room for the procedure. Emergency medicine is already administered intravenous antibiotics. Given the later hour, we will plan to admit for observation postoperatively. Charges/Coding Visit Charges Inpatient E&M: 43964 Init Hosp L2
--- NOTE | 2022-03-30 20:45 | APP_PTH ---
PATIENT: JUNIOR TSE LOC: MS3 U#:[id number] AGE/SX: 51/F ROOM: NV314 RE03/30/[address]: Dr. Juan David Patino MD : 1970 BED: 1 DIS: 03/31/2022 SPEC #: [id number] RECD: 03/31/22 07:32 STATUS: KEILA ALCALA #: [id number] ROVERTO: 03/30/22 20:[address]: Juan David Patino DEPT: SURGICAL PATHOLOGY RECD BY: Fatimah Cervantes ENTERED: 03/31/22 08:03 SP TYPE: APPENDIX OTHR DR: Dr. Zak Powell MD Tissues: Appendix, NOS Procedures: Surgery Specimen Level III HEADER OPERATION: Laparoscopic appendectomy PRE-OP DIAGNOSIS: Acute appendicitis TISSUE SUBMITTED: Appendix MICROSCOPIC DIAGNOSIS Appendix, appendectomy: Acute necrotizing appendicitis. Acute serositis. AM:lew 04/01/2022 MICROSCOPIC DESCRIPTION Slides are reviewed. GROSS DESCRIPTION Received in fixative is one container labeled with the patient's name and designated appendix. The specimen consists of an appendix measuring 7 cm in length and up to 1 cm in diameter. The attached periappendiceal adipose tissue measures up to 2.5 cm in width. The serosa is congested and covered with payne, purulent exudate. A focal area of perforation is noted in the middle portion of the appendix. The lumen does not contain any fecalith. Town Marshal sections are submitted in two cassettes. / ESME:lew 03/31/2022 TC:2 CPT: 14195
--- NOTE | 2022-03-30 20:52 | ED.RN ---
watch and earring given to mother
[2022-03-30] MEDS: Bupivacaine 0.25% 30 ML Vial (21:31)
--- NOTE | 2022-03-30 22:17 | OP.PCM_ITS ---
Report of Operation Date of Procedure: 03/30/22 Pre-Operative Diagnosis: Acute appendicitis Post-Operative Diagnosis: Acute, uncomplicated appendicitis Surgery/Procedure Performed:: Laparoscopic appendectomy Description of Surgical Findings:: ? Appendix not immediately visible as it had been sealed off by overriding terminal ileum, but beneath this was severely inflamed and dilated (but nonperforated) Surgeon: Juan David Patino social work administrator: None Type of Anesthesia: General/Supplemental Anesthesiologist: Mikhail Mandujano Specimen's removed: Appendix Drains: Not applicable Estimated Blood Loss (mL): 15 Description of Procedure: After appropriate identification in the preoperative holding area, the patient was brought to the operating room and placed supine on the operating room table. Antibiotics had been preoperatively administered by Emergency medicine. Patient was then induced with general endotracheal anesthetic. Some intervening pubic hair was clipped and the abdomen was prepped and draped in usual sterile fashion. Formal timeout was conducted to confirm both the patient and the procedure. A infraumbilical incision was made along a prior transverse scar and carried down to the level of the fascia which was sharply opened. After opening the peritoneum in like fashion a finger sweep was made to confirm position, and a balloon trocar was placed and pneumoperitoneum was established to 15 mmHg. Patient was positioned in Trendelenburg with the left side down. 2 additional 5 mm trocars were placed in the left lower quadrant and suprapubic positions. The peritoneum was inspected and there were no signs of inadvertent injury from this Rodgers entry. The appendix was not immediately visualized, but an overriding terminal ileum was medially rotated and the appendix was then visualized beneath with severe inflammation, but appeared intact. Using the laparoscopic harmonic device the mesoappendix adjacent to the appendiceal base was divided. Then the base of the appendix was sealed and amputated with the use of an Endo LAYNE stapler. As the stapler was released from the appendix there was disruption of the staple line on the appendix side resulting in some local contamination of the very minute volume with purulent fluid from the appendix. The appendix was placed in an Endo Catch bag. The local spillage of purulent fluid was suctioned free of the peritoneum and the suction electrical tech/project manager was used to copiously irrigate the surgical cavity. The staple line was inspected for hemostasis. After hemostasis was confirmed the appendix was removed from the umbilical port site. Pneumoperitoneum was then evacuated and the supraumbilical port site fascia was closed with #1 Vicryl in a emvoim-mg-apptl fashion. The port sites were infiltrated with 15 mL 0.25% bupivacaine local anesthetic. The skin of each port site was closed with 4-0 Monocryl in a subcuticular fashion. Steri-Strips and OpSite dressings were applied. Patient tolerated procedure well without any apparent complications. They were awoken from general anesthetic without issue and transferred to post anesthesia care unit for ongoing recovery. Complications None Admit VTE Documentation VTE Mechan Device Prophylaxis: SCD's Procedures Digestive 40xxx-49xxx: 10066 Laparoscopy appendectomy
[2022-03-30] MEDS: 0.9% Normal Saline 1,000 ML 125 ML IV (23:32)
[2022-03-30] MEDS: Ibuprofen 400 MG Tablet PO (23:57)
[2022-03-31 01:26] VITALS: BP 113/64; PULSE 90; RESP 16; TEMP 37.2; O2SAT 96
[2022-03-31 03:23] VITALS: BP 97/62; PULSE 80; RESP 16; TEMP 37.2; O2SAT 96
[2022-03-31] MEDS: Ibuprofen 400 MG Tablet PO ×2 (05:23→11:47)
--- NOTE | 2022-03-31 07:51 | DCINST_ITS ---
Discharge Instructions Diet Discharge Diet: No restrictions Activity Discharge Activity: May Not Drive and May Shower May shower in (days): 2 May resume sexual activity in: 2 weeks Ice area for (Minutes): 20 Lifting Restrictions: Limit lifting to <15lbs for 2 weeks following surgery Dressing / Incision Call your doctor if your incision/area has: Increased Pain/ Swelling, Increased Redness and Foul Smelling Discharge Call your doctor if you observe: Fever of 101 or Higher Suture Line Care: Avoid Pulling/Pushing Remove Dressing in: 2 days (Please leave steri strips (medical tape) in place until they fall off spontaneously or are removed at your follow-up appointment) Cleanse incision/area with: Keep Dressing Clean & Dry Follow Up Care Please Follow Up With: Juan David Patino MD When: 7-10 days postop Test Results: Test results from this visit will be discussed in further detail at your follow- up appointment, if applicable. Discharge Plan Admission Admit Date/Time: 03/30/22 22:23 Primary Reason for Your Visit: Acute appendicitis Attending Provider: Juan David Patino Primary Care Provider: Damian Powell Instructions Patient Instructions: Appendectomy Lap Dc Discharge Orders/Prescriptions Prescriptions: New oxycodone 5 mg Tablet 5 mg PO Q6H PRN PRN (Reason: Pain Score 6-10) 5 Days Qty: 10 0RF Continued omeprazole magnesium 20 mg capsule,delayed release(DR/EC) 20 mg PO DAILY multivitamin 1 EACH tablet 1 ea PO DAILY omega-3 fatty acids-fish oil 1 EACH capsule 1 ea PO DAILY Bacillus coagulans 1 EACH tablet,chewable 1 ea PO DAILY cholecalciferol (vitamin D3) 25 MCG tablet,chewable 1,000 unit PO DAILY vitamin C-biotin 1 EACH tablet,chewable 1 each PO DAILY magnesium oxide 200 MG tablet,chewable 200 mg PO DAILY apple cider vinegar 300 mg Tablet 300 mg PO DAILY Rx Instructions: takes gummies turmeric 400 mg Capsule 400 mg PO DAILY Referrals / Follow Up: Damian Powell MD [Primary Care Provider] - Disposition Disposition (needs filled in before D/C Order can be placed): Home, Self Care
[2022-03-31 07:59] VITALS: BP 100/61; PULSE 74; RESP 18; TEMP 37.1; O2SAT 94
[2022-03-31 08:01] VITALS: RESP 18
--- NOTE | 2022-03-31 08:04 | DS.PCM_ITS ---
Providers Date of Admission: 03/30/22 Primary Care Physician: Dr. 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 A dilated and thick-walled appendix (measured greater than 14 mm by radiology) was visualized on CT imaging of the abdomen pelvis obtained earlier today. Follow-up laboratories also suggest inflammatory/infectious process with a leukocytosis of 17,000. Treatment options were discussed and laparoscopic appendectomy was recommended. Patient is accepting of this recommendation and we will therefore plan to proceed emergently to the operating room for the procedure. Emergency medicine is already administered intravenous antibiotics. Given the later hour, we will plan to admit for observation postoperatively. Medications at Discharge Home Medications Bacillus coagulans 250 million cell chewable tablet 1 ea PO DAILY supplement 07/21/17 multivitamin 1 ea PO DAILY vitamin 07/21/17 omega-3 fatty acids-fish oil 300 mg-1,000 mg capsule 1 ea PO DAILY supplement 07/21/17 omeprazole magnesium 20 mg capsule,delayed release 20 mg PO DAILY GERD 10/08/20 cholecalciferol (vitamin D3) 25 mcg (1,000 unit) chewable tablet 1,000 unit PO DAILY supplement 11/06/20 magnesium oxide 200 mg PO DAILY suipplement 11/06/20 vitamin C 50 mg-biotin 1,250 mcg chewable tablet 1 each PO DAILY vitamin 11/06/20 apple cider vinegar 300 mg tablet 300 mg PO DAILY supplement 03/30/22 turmeric 400 mg capsule 400 mg PO DAILY supplement 03/30/22 oxycodone 5 mg tablet 5 mg PO Q6H PRN PRN Pain Score 6-10 5 days #10 tabs 0 03/31/22 Hospital Course Operations appendectomy Procedures None Summary of Care Provided Hospital Course: Patient is a 51-year-old female who was admitted on 03/30/2022 for an observational stay following a laparoscopic appendectomy. Admission was occasioned by the late hour of the procedure. Patient was initiated on a clear liquid diet with p.o. pain medications immediately following the procedure. She admits she was rather sedate for the first several hours following the procedure and did not take much of her diet, however, she did tolerate the liquid she did consume. She was thus advanced to a regular diet and her IV fluids were discontinued. She tolerated this transition without issue and was granted discharge to home with close outpatient follow-up in 1 week. Physical Exam Const alert, oriented x3 and no apparent distress Resp normal respiratory effort GI GI Narrative: Nondistended, operative dressings remained intact. There is some slight serosanguineous strikethrough to the patient's suprapubic port site. Patient had tenderness in the right lower quadrant and about port sites as expected on postoperative day 1. Weight / BMI Weight Weight: 212 lb Body Mass Index (BMI) 33.7 ABG / Lab / Microbiology Data Result Diagrams: 03/30/22 19:20 03/30/22 19:20 Laboratory: Laboratory Results - last 24 hr 03/30/22 19:20: WBC 17.3 H, RBC 4.25, Hgb 13.1, Hct 38.2, MCV 89.9, MCH 30.8, MCHC 34.3, RDW Std Deviation 41.1, RDW Coeff of Ryan 12.5, Plt Count 221, MPV 9.4, Immature Gran % (Auto) 0.400, Neut % (Auto) 71.3 H, Lymph % (Auto) 20.0, Atkinson % (Auto) 7.6, Eos % (Auto) 0.5, Baso % (Auto) 0.2, Absolute Neuts (auto) 12.3 H, Absolute Lymphs (auto) 3.46, Nucleated RBC % 0 03/30/22 19:20: Sodium 134 L, Potassium 3.4 L, Chloride 100, Carbon Dioxide 26 .0, Anion Gap 8, BUN 10, Creatinine 0.92, Estim Creat Clear Calc 67.72, Est GFR (MDRD) Af Amer 82, Est GFR (MDRD) Non-Af 68, BUN/Creatinine Ratio 10.8, Glucose 92, Calcium 8.8, Total Bilirubin 1.30 H, AST 28, ALT 66 H, Alkaline Phosphatase 50, Total Protein 8.0, Albumin 3.8, Globulin 4.2, Albumin/Globulin Ratio 0.9 03/30/22 19:20: Urine Color Straw, Urine Clarity Clear, Urine pH 7.0, Ur Specific [place] 1.005, Urine Protein Negative, Urine Glucose (UA) Normal, Urine Ketones Negative, Urine Occult Blood 25 H, Urine Nitrite Negative, Urine Bilirubin Negative, Urine Urobilinogen Normal, Ur Leukocyte Esterase Negative, Urine RBC 0 SEEN, Urine WBC 0 SEEN, Ur Squamous Epith Cells 0-5 SEEN, Urine Bacteria 0 SEEN, Urine Mucus 0 SEEN D/C Instructions Discharge Diet: No restrictions May shower in (days): 2 May resume sexual activity in: 2 weeks Ice area for (Minutes): 20 Call your doctor if your incision/area has: Increased Pain/ Swelling, Increased Redness and Foul Smelling Discharge Call your doctor if you observe: Fever of 101 or Higher Suture Line Care: Avoid Pulling/Pushing Cleanse incision/area with: Keep Dressing Clean & Dry Please Follow Up With: Juan David Patino MD When: 7-10 days postop Meaningful Use Info Meaningful Use Diagnoses (Choose all that apply): None applicable Discharge Plan Admission Admit Date/Time: 03/30/22 22:23 Primary Reason for Your Visit: Acute appendicitis Attending Provider: Juan David Patino Primary Care Provider: Damian Powell Instructions Forms: Work / School Excuse Patient Instructions: Appendectomy Lap Dc Discharge Orders/Prescriptions Prescriptions: New oxycodone 5 mg Tablet 5 mg PO Q6H PRN PRN (Reason: Pain Score 6-10) 5 Days Qty: 10 0RF Continued omeprazole magnesium 20 mg capsule,delayed release(DR/EC) 20 mg PO DAILY multivitamin 1 EACH tablet 1 ea PO DAILY omega-3 fatty acids-fish oil 1 EACH capsule 1 ea PO DAILY Bacillus coagulans 1 EACH tablet,chewable 1 ea PO DAILY cholecalciferol (vitamin D3) 25 MCG tablet,chewable 1,000 unit PO DAILY vitamin C-biotin 1 EACH tablet,chewable 1 each PO DAILY magnesium oxide 200 MG tablet,chewable 200 mg PO DAILY apple cider vinegar 300 mg Tablet 300 mg PO DAILY Rx Instructions: takes gummies turmeric 400 mg Capsule 400 mg PO DAILY Referrals / Follow Up: Damian Powell MD [Primary Care Provider] - Disposition Disposition (needs filled in before D/C Order can be placed): Home, Self Care Charges/Coding Visit Charges Inpatient E&M: 52498 Disch Hosp
[2022-03-31] MEDS: 0.9% Normal Saline 1,000 ML 125 ML IV (08:06)
[2022-03-31] MEDS: Polyethylene Glycol 3350 17 GM PACKET PO (10:13)
[2022-03-31 12:59] VITALS: BP 110/70; PULSE 78; RESP 18; TEMP 36.8; O2SAT 95
== END 2022-03-31 13:15 | disposition home or self-care (01) ==
LOC: ED 19:42 → SDC 20:20 → AC 20:21 → SDC 22:45 → MS3 22:45
PROVIDERS: Admitting Provider Surgery; Emergency Provider Emergency Medicine; PCP Family Medicine; Visit Provider Surgery
PROC: 0DTJ4ZZ Resection of Appendix, Percutaneous Endoscopic Approach (ICD-10-PCS; CPT 44970; principal; 2022-03-30 20:45)
DX: K35.80 Unspecified acute appendicitis (principal); M06.9 Rheumatoid arthritis, unspecified; K59.09 Other constipation; I10 Essential (primary) hypertension; M19.90 Unspecified osteoarthritis, unspecified site; Z86.718 Personal history of other venous thrombosis and embolism; K21.9 Gastro-esophageal reflux disease without esophagitis; Z79.899 Other long term (current) drug therapy; Z87.11 Personal history of peptic ulcer disease
CPT/HCPCS: 44970; 00840; 80053; 81001; 85025; 88304; 96361; 96365; 96375; 99218; 99283; J7030; A4216; G0378; J2405

== ENCOUNTER → 2022-03-30 | Outpatient (CLI) | payer OTHER, SELFPAY ==
--- NOTE | 2022-03-30 16:09 | CT_ITS ---
We are attempting to reach an attending provider to discuss findings. An addendum with communication details will be sent when the communication is complete. STUDY: CT Abdomen And Pelvis W/ Contrast Injection 03/30/2022 6:46 PM REASON FOR EXAM: Female, 51 years old. ABDOMINAL PAIN RLQ PAIN x 2 DAYS TECHNIQUE: Transaxial images were obtained with oral contrast, and with Oral and amp; IV Gastrografin and amp; 100mL Isovue-370 intravenous contrast. Individualized dose optimization techniques were used for this CT. COMPARISON: 05/29/2013. FINDINGS: The visualized lung bases are unremarkable. The visualized portions of the heart are within normal limits. There is decreased attenuation of the liver consistent with steatosis. Unremarkable gallbladder and extrahepatic biliary system. Unremarkable spleen. Unremarkable pancreas. Unremarkable bilateral adrenal glands. No acute findings of the right kidney. No acute findings of the left kidney. Unremarkable visualized stomach. Unremarkable small intestine. Unremarkable colon. There is a tubular, thick-walled appendix (>14mm), consistent with acute appendicitis. There are no acute findings of the abdominal aorta. Unremarkable inferior vena cava. Subcentimeter mesenteric lymph nodes. Unremarkable urinary bladder. Normal visualized uterus. Trace free fluid in the pelvis. There is an umbilical hernia containing fat. There are diffuse degenerative changes of the visualized lumbar spine. Vacuum disc phenomenon. CT/Abdomen/Pelvis WITH Contrast IMPRESSION: (NOT LISTED IN ORDER OF SIGNIFICANCE) Acute appendicitis. Fatty liver. Other findings as above. Critical finding called and case discussed. Electronically Signed: Gómez Shaw MD at 18:49 EDT ,
== END | disposition home or self-care (01) ==
PROVIDERS: PCP Family Medicine; Visit Provider Family Medicine
DX: K35.80 Unspecified acute appendicitis (principal); K76.0 Fatty (change of) liver, not elsewhere classified
CPT/HCPCS: 74177; Q9967

== ENCOUNTER → 2022-07-17 | Outpatient (CLI) | payer OTHER, SELFPAY ==
[2022-07-17 17:41] LABS: Hematocrit 39.6 % (37-47); Hemoglobin 14.4 g/dL (12.0-15.0); Mean Corp Hgb Conc 36.4 g/dL (32-36); Mean Corpuscular Hgb 32.4 pg (27.0-32.0); Mean Corpuscular Volume 89.2 fL (81-99); Mean Platelet Vol. 9.8 fl (6.2-12.0); Platelet Count 265 K/mm3 (150-450); RBC Distribution Width CV 12.1 % (11.6-14.6); RBC Distribution Width SD 39.3 fl (35.1-43.9); Red Blood Count 4.44 M/mm3 (4.2-5.4); White Blood Count 8.5 K/mm3 (4.4-11.0)
[2022-07-17 18:07] LABS: Vitamin D,25 Hydroxy 56.7 ng/mL
[2022-07-17 18:26] LABS: Anion Gap 7 (5-15); BUN 14 mg/dL (7-18); BUN/Creat Ratio 15.7 RATIO (10-20); Chloride 104 mmol/L (98-107); Creatinine, Serum 0.89 mg/dL (0.55-1.02); EST Glomerular Filtration Rate 71 mL/min (>60); Est Glom Filt Rate - Afr Amer 86 mL/min (>60); Glucose 107 mg/dL (74-106); Potassium 3.6 mmol/L (3.5-5.1); Sodium Level 138 mmol/L (136-145); Thyroid Stim Hormone (TSH) 1.63 uIU/mL (0.358-3.74)
== END | disposition home or self-care (01) ==
LOC: MFPLAB 16:49
PROVIDERS: PCP Family Medicine; Referring Provider Family Medicine; Visit Provider Family Medicine
DX: F41.9 Anxiety disorder, unspecified (principal)
CPT/HCPCS: 36415; 80048; 82306; 82533; 84443; 85027

== ENCOUNTER → 2022-11-23 | Outpatient (CLI) | payer OTHER, SELFPAY ==
--- NOTE | 2022-11-23 15:18 | BI_ITS ---
MAMMOGRAPHY - BILATERAL SCREENING REASON FOR EXAM: Female, 52 years old. Routine annual screening examination. PERTINENT HISTORY: Non-contributory. TECHNIQUE: Digital bilateral breast nikia (3D mammographic acquisition) in the CC and MLO projections. 2-D mediolateral oblique (MLO) and craniocaudad (CC) views of both breasts were obtained. CAD: Full Field Digital Mammography with Computer Added Detection was performed. COMPARISON: Comparison is made with prior study dated November 20, 2021 and November 18, 2020. FINDINGS: Breast Composition: There are scattered areas of fibroglandular density. There are no dominant masses or suspicious calcifications. Stable benign-appearing bilateral axillary adenopathy. No other significant abnormalities are identified. There has been no significant change since the prior study. BI/SCRN MAMM (CAD)W/NIKIA BILAT IMPRESSION: Stable bilateral screening mammogram. Yearly follow-up mammogram recommended. (A) ASSESSMENT CATEGORY: BIRADS Category 2: Benign. A letter regarding these results will be sent to the patient by the facility within 30 days. Approximately 10% of breast cancers are not detected by mammography. A normal mammogram should not delay biopsy of a clinically suspicious abnormality. [id number] Electronically Signed: Ned Cheng MD at 8:05 EDT ,
== END | disposition home or self-care (01) ==
LOC: OPBI 15:16
PROVIDERS: PCP Family Medicine; Referring Provider Student in an Organized Health Care Education/Training Program; Visit Provider Student in an Organized Health Care Education/Training Program
DX: Z12.31 Encounter for screening mammogram for malignant neoplasm of breast (principal)
CPT/HCPCS: 77063; 77067

== ENCOUNTER 2023-11-15 07:14 | Day surgery (SDC) | payer OTHER, SELFPAY ==
--- NOTE | 2023-11-15 | COLBX_PTH ---
PATIENT: JUNIOR TSE LOC: EN U#:[id number] AGE/SX: 53/F ROOM: RE11/15/[address]: Dr. Juan David Patino MD : 1970 BED: DIS: 11/15/2023 SPEC #: [id number] RECD: 11/15/23 14:06 STATUS: KEILA ZHOURoberto #: [id number] ROVERTO: 11/15/23 00:[address]: Juan David Patino DEPT: SURGICAL PATHOLOGY RECD BY: Julian Ware ENTERED: 11/15/23 14:06 SP TYPE: COLON BX [place]OR[place] DR: Dr. Zak Powell MD Tissues: A - Transverse colon B - Sigmoid colon biopsy C - Sigmoid colon biopsy D - Rectum, NOS Procedures: Surgery Specimen Level IV HEADER OPERATION: Colonoscopy- open access with polyp biopsy PRE-OP DIAGNOSIS: Screening, Personal history of colon polyp TISSUE SUBMITTED: A- Distal transverse colon polyp biopsy, B- Proximal sigmoid colon polyp biopsy, C- Distal sigmoid polyp biopsy, D- Rectal mucosa biopsy MICROSCOPIC DIAGNOSIS A. Distal transverse colon polyp, biopsy: Fragments of tubular adenoma. B. Proximal sigmoid colon polyp, biopsy: Tubular adenoma. C. Distal sigmoid polyp, biopsy: Fragments of colonic mucosa, no pathologic diagnosis. D. Rectal mucosa, biopsy: Fragments of colonic mucosa, no pathologic diagnosis. ESME/ 11/16/2023 MICROSCOPIC DESCRIPTION Slides are reviewed. GROSS DESCRIPTION A. Received in fixative is one container labeled with the patient's name and designated Distal transverse colon polyp biopsy. The specimen consists of multiple irregular fragments of light altamirano soft tissue that in aggregate measure 1.0 x 0.3 x 0.1 cm. The specimen is totally submitted in one cassette. B. Received in fixative is one container labeled with the patient's name and designated Proximal sigmoid colon polyp biopsy. The specimen consists of one irregular fragment of light altamirano soft tissue that measures 0.5 x 0.3 x 0.1 cm. The specimen is totally submitted in one cassette. C. Received in fixative is one container labeled with the patient's name and designated Distal sigmoid colon polyp biopsy. The specimen consists of two irregular fragments of light altamirano soft tissue that in aggregate measure 0.6 x 0.3 x 0.1 cm. The specimen is totally submitted in one cassette. D. Received in fixative is one container labeled with the patient's name and designated Rectal mucosa biopsy. The specimen consists of two irregular fragments of light altamirano soft tissue that in aggregate measure 0.4 x 0.3 x 0.1 cm. The specimen is totally submitted in one cassette. ESME/ 11/15/23 TC:1 CPT: 46860o6
[2023-11-15 07:32] VITALS: BP 154/98; PULSE 83; RESP 18; TEMP 36.5; O2SAT 100; BMI 30.8
[2023-11-15] MEDS: Lactated Ringers 1,000 ML 15 ML IV (07:41)
--- NOTE | 2023-11-15 08:38 | HP.PCM_ITS ---
[facility] - General General Date of Service: 11/15/23 [facility] Narrative JUNIOR TSE, is a 53 F who presents for surveillance colonoscopy. She confirms her preappointment questionnaire that she has not experienced any change in her bowel habits, but freely admits to history of chronic constipat ion. She expresses some frustration over this fact given that she regularly uses fiber, probiotic, and water. She is status post colonoscopy with Dr. Courtney in 2020 where she was found to have tubular adenomas of the left colon. She also has a family history of colon cancer in her father diagnosed in his 60s. She reports that she remains healthy and her last significant health update was our appendectomy together nearly 2 years ago. Lastly she confirms that her prep was completed successfully and that her output is now clear. [facility] Medical History (Updated 11/15/23 @ 08:[address] Juan David Patino MD) Anxiety Chronic constipation Family history of malignant neoplasm of colon in father Gastroesophageal reflux disease History of adenomatous polyp of colon History of DVT (deep vein thrombosis) History of echocardiogram History of peptic ulcer disease HTN (hypertension) Non-smoker Osteoarthritis Rheumatoid arthritis Sleep apnea Wears contact lenses Wears glasses Home Medications Bacillus coagulans 250 million cell chewable tablet 1 ea PO DAILY supplement 07/21/17 [History Last Taken 11/12/23] multivitamin 1 ea PO DAILY vitamin 07/21/17 [History Last Taken 11/12/23] omega-3 fatty acids-fish oil 300 mg-1,000 mg capsule 1 ea PO DAILY supplement 07/21/17 [History Last Taken 11/12/23] omeprazole magnesium 20 mg capsule,delayed release 20 mg PO DAILY GERD 10/08/20 [History Last Taken 11/15/23] cholecalciferol (vitamin D3) 25 mcg (1,000 unit) chewable tablet 1,000 unit PO DAILY supplement 11/06/20 [History Last Taken 11/12/23] magnesium oxide 200 mg PO DAILY suipplement 11/06/20 [History Last Taken 11/12/23] vitamin C 50 mg-biotin 1,250 mcg chewable tablet 1 each PO DAILY vitamin 11/06/20 [History Last Taken 11/12/23] turmeric 400 mg capsule 400 mg PO DAILY supplement 03/30/22 [History Last Taken 11/12/23] bupropion HCl 300 mg 24 hr tablet, extended release (Wellbutrin XL) 300 mg PO QAM 09/23/23 [History Last Taken 11/15/23] cyanocobalamin (vitamin B-12) 1,000 mcg tablet (Vitamin B-12) 1,000 mcg PO DAILY 09/23/23 [History Last Taken 11/12/23] Allergy/AdvReac Type Severity Reaction Status Date / Time bee venom protein (honey bee) Allergy Swelling Verified 11/15/23 07:29 Family History (Updated 09/23/23 @ 08:33 by Loree Monreal) Sister Cancer leukemia Hypertension Mother Heart disease Father Colon cancer, Onset Age: 60 early 60's w/colon ca Aunt Colon polyps Paternal Aunts Surgical History History of appendectomy (~03/2022) History of bone marrow donation History of carpal tunnel release History of cholecystectomy History of colonoscopy History of esophagogastroduodenoscopy (EGD) History of salpingo-oophorectomy Social History (Updated 09/23/23 @ 08:34 by Loree Monreal) current occupational status: employed Smoking Status: Never smoker alcohol intake: never substance use type: does not use Past Medical/Surgical History Planned Operation Planned Operative Procedure/s: COLONOSCOPY S.O.S: No Previous Hospitalizations/Surgeries HX Hospitalizations: No HX of Surgeries: EGD, Colonoscopy bone marrow donation carpal tunnel release cholecystectomy Salpingectomy, ablation Any Problems With Anesthesia: Yes (STATES BP DROPS AFTER ANESTHESIA) You/Your Family Experience Fever (Hyperthermia) With Anes: No Cholinesterase deficiency: No Cardiovascular Hx Chest Pain within Last 2 months: Yes (After Covid vacc, with palpitations) Hx of Irregular Heartbeat and/or Afib: No (possible murmur) Hx Heart Attack: No Hx Congestive Heart Failure: No Hx Rheumatic Fever: No Hx Hypertension: No Hx Internal Defibrillator: No Hx Pacemaker: No Hx Cardiac Catheterization: No Hx Cardiac Surgery/Stents/Etc.: No Hx Stress Test: No (ECHO 2013) Hx Pain in Legs when Walking/Leg Cramps: Yes (PER HX) Respiratory Chronic Cough: No HX of Shortness of Breath: No Hoarseness: No Hx Chronic Obstructive Pulmonary Disease (COPD): No Hx Asthma: No Hx Emphysema: No Hx Sleep Apnea: Yes CPAP: Yes (NONCOMPLIANT, DOES NOT USE) BIPAP: No Hx Respiratory Tract Infection/Cold (presently): No Do You Snore Loudly (louder than talking or can be heard): No Do You Often Feel Tired/ Fatigued/ Sleepy Dring Daytime?: No Has Anyone Observed You Stop Breathing During Sleep?: No Result (for STOP score): Positive Hx Smoking: No Smoking Status: Never smoker Gastrointestinal Controlled With Meds: Yes (prilosec) Hx Gastrointestinal Disorders: No Hx Gastrointestinal Bleed: No Hx Ulcer: Yes (peptic ulcer in 20s) Hx Hiatal Hernia: No Difficulty Chewing/Swallowing: No Special diet followed at home: No Hx Unplanned Weight Loss of 20#: No HX Unplanned Weight Gain of 20#: No Neurological Hx Seizures: No HX Syncope/Blackout Spells/Unconsciousness: Yes (AFTER BONE MARROW PROCEDURE) Hx Transient Ischemic Attacks (TIA): No Hx Multiple Sclerosis: No Hx Parkinson's Disease: No 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) Hx Headaches: Yes Hx Back Injury/Pain: Yes (LOWER LUMBAR FUSED, DUE TO INJURY) Recent Onset of Speech Difficulty: No Restless Legs: No Does patient have nerve stimulator: No Blood Disorder Hx Leukemia: No Bleeding Tendencies: No Hx Deep Vein Thrombosis: Yes (d/t control) Hx High Cholesterol: No Blood Transmitted Disease: No Hx Hepatitis: No Hx Cirrhosis: No Hx Anemia: No Hx Blood Disorders: No Reproduction Is Patient Lactating: No Hx Hysterectomy: No Hx Tubal Ligation: Yes Are You Post Menopause: No Genitourinary Hx Renal Disease: No Musculoskeletal Hx Arthritis: Yes Hx Rheumatoid Arthritis: Yes (NO MEDS) Hx Gout: No Recent Onset of an Orthopedic Problem: No Endocrine Hx Diabetes: No Thyroid Disease: No Hx Steroid Therapy: No Psycho/Social Hx Substance Use: No Hx Alcohol Use: No Hx Anxiety: No Hx Depression: Yes Mental Illness: No Hx Dementia: No Miscellaneous Hx Cancer: No Recent Exposure to Contagious Disease: No Hx of C-Diff: No Any Loose Teeth: No Allergies bee venom protein (honey bee) Allergy (Verified 11/15/23 07:29) Swelling Vital Signs Vital Signs Vital Signs: 11/15/23 07:32 11/15/23 07:32 Temperature 97.7 F L Temperature Source Temporal Pulse Rate 83 Respiratory Rate 18 Respiratory Pattern Normal Blood Pressure 154/98 H Blood Pressure Mean 116 Blood Pressure Source Monitor Blood Pressure Position Semi-Fowlers Blood Pressure Location Right Arm Pulse Ox 100 Oxygen Delivery Method Room Air Weight Weight: 190 lb 14.725 oz Body Mass Index (BMI) 30.8 Physical Exam Const alert and oriented x3 Constitutional Narrative: Anxious General Appearance: cooperative Resp normal respiratory effort GI GI Narrative: Nondistended, soft, nontender to palpation x 4 quadrants Assessment & Plan Assessment/Plan (1) History of adenomatous polyp of colon: PLAN: Patient is a 53-year-old female who follows up for surveillance colonoscopy after history of tubular adenomas diagnosed 3 years ago. She continues to experience constipation but otherwise remains well. She denies any health updates. She confirms that she completed a prep for today's procedure. Will now proceed with update surveillance colonoscopy as planned. Surgery Risks - Colonoscopy Risks Include but are not Limited To: Risks include but are not limited to: Bleeding, perforation requiring further surgery, inability to complete colonoscopy requiring barium enema.
[2023-11-15 09:35] VITALS: BP 136/80; BP 154/98; PULSE 76; RESP 16; TEMP 36.5; O2SAT 100
[2023-11-15 09:40] VITALS: BP 128/84; BP 154/98; PULSE 76; RESP 16; O2SAT 100
--- NOTE | 2023-11-15 09:40 | OP.COLON_ITS ---
Patient Name: Marilynn Florian Procedure Date: 11/15/2023 8:28 AM Date of : 1970 Age: 53 Procedure: Colonoscopy Indications: Surveillance: Personal history of adenomatous polyps on last colonoscopy 3 years ago Providers: Juan David Patino MD Referring MD: Damian Powell Medicines: See the Anesthesia note for documentation of the administered medications Patient Profile: Last Colonoscopy: 3 years ago. Complications: No immediate complications. Estimated blood loss: Minimal. Procedure: Pre-Anesthesia Assessment: - The heart rate, respiratory rate, oxygen saturations, blood pressure, adequacy of pulmonary ventilation, and response to care were monitored throughout the procedure. After I obtained informed consent, the scope was passed under direct vision. Throughout the procedure, the patient's blood pressure, pulse, and oxygen saturations were monitored continuously. The colonoscope was introduced through the anus and advanced to the cecum, identified by the appendiceal orifice, ileocecal valve and palpation. The colonoscopy was somewhat difficult due to significant looping and a tortuous colon. Successful completion of the procedure was aided by changing the patient to a supine position and using manual pressure. The patient tolerated the procedure well. The quality of the bowel preparation was adequate to identify polyps. Scope In: 8:46:47 AM Scope Withdrawal Time 0 hours 20 minutes 57 seconds Scope Out: 9:27:02 AM Total Procedure Duration Time 0 hours 40 minutes 15 seconds Findings: The perianal and digital rectal examinations were normal. Three sessile polyps were found in the proximal sigmoid colon, distal sigmoid colon and distal transverse colon. The polyps were 3 to 5 mm in size. Biopsies were taken with a cold forceps for histology. Estimated blood loss was minimal. Localized mild inflammation characterized by pseudopolyps was found in the rectum. Biopsies were taken with a cold forceps for histology. Estimated blood loss was minimal. The exam was otherwise without abnormality on direct and retroflexion views. Impression: - Three 3 to 5 mm polyps in the proximal sigmoid colon, in the distal sigmoid colon and in the distal transverse colon. Biopsied. - Localized mild inflammation was found in the rectum. Biopsied. - The examination was otherwise normal on direct and retroflexion views. Recommendation: - Discharge patient to home (via wheelchair). - Resume previous diet today. - Await pathology results. - Repeat colonoscopy date to be determined after pending pathology results are reviewed for surveillance based on pathology results. - Telephone my office for pathology results in 1 week. - Continue present medications. Procedure Code(s): --- Professional --- 24377, Colonoscopy, flexible; with biopsy, single or multiple Diagnosis Code(s): --- Professional --- Z86.010, Personal history of colonic polyps D12.5, Benign neoplasm of sigmoid colon D12.3, Benign neoplasm of transverse colon (hepatic flexure or splenic flexure) K62.89, Other specified diseases of anus and rectum CPT copyright 2021 [employer]. All rights reserved. The codes documented in this report are preliminary and upon web application dev specialist review may be revised to meet current compliance requirements. Juan David Patino MD 11/15/2023 9:39:31 AM This report has been signed electronically. Number of Addenda: 0 Note Initiated On: 11/15/2023 8:28 AM
--- NOTE | 2023-11-15 09:40 | OP.CCLET_ITS ---
11/15/2023 Damian Powell [address] [place] [address] Re : Colonoscopy procedure for Marilynn Florian Dear Dr. Powell This procedure was performed on Wednesday, November 15, 2023. My impressions and recommendations are as follows: Impressions : - Three 3 to 5 mm polyps in the proximal sigmoid colon, in the distal sigmoid colon and in the distal transverse colon. Biopsied. - Localized mild inflammation was found in the rectum. Biopsied. - The examination was otherwise normal on direct and retroflexion views. Recommendations : - Discharge patient to home (via wheelchair). - Resume previous diet today. - Await pathology results. - Repeat colonoscopy date to be determined after pending pathology results are reviewed for surveillance based on pathology results. - Telephone my office for pathology results in 1 week. - Continue present medications. My findings are described in the full procedure note, which is enclosed. If I can be of further assistance, please feel free to contact me at Doctor phone number(s): , Work: . Sincerely, Juan David Patino MD 11/15/2023 9:39:31 AM This report has been signed electronically.
[2023-11-15 09:45] VITALS: BP 134/89; BP 154/98; PULSE 66; RESP 16; O2SAT 100
[2023-11-15 09:50] VITALS: BP 138/96; BP 154/98; PULSE 66; RESP 16; TEMP 36.4; O2SAT 100
[2023-11-15 09:58] VITALS: BP 154/98
== END 2023-11-15 10:15 | disposition home or self-care (01) ==
LOC: EN 07:15 → AC 07:16
PROVIDERS: PCP Family Medicine; Referring Provider Family Medicine; Visit Provider Surgery
PROC: 0DJD8ZZ Inspection of Lower Intestinal Tract, Via Natural or Artificial Opening Endoscopic (ICD-10-PCS; CPT 45378; principal; 2023-11-15 08:10)
DX: Z12.11 Encounter for screening for malignant neoplasm of colon (principal); F41.9 Anxiety disorder, unspecified; G47.30 Sleep apnea, unspecified; D12.3 Benign neoplasm of transverse colon; D12.5 Benign neoplasm of sigmoid colon; K62.89 Other specified diseases of anus and rectum; Z80.0 Family history of malignant neoplasm of digestive organs; Z79.899 Other long term (current) drug therapy; Z86.718 Personal history of other venous thrombosis and embolism; Z86.010 Personal history of colon polyps
CPT/HCPCS: 45380; 88305; J7120; J2405

== ENCOUNTER → 2023-11-29 | Outpatient (CLI) | payer OTHER, SELFPAY ==
--- NOTE | 2023-11-29 15:23 | BI_ITS ---
MAMMOGRAPHY - BILATERAL SCREENING REASON FOR EXAM: Female, 53 years old. Routine annual screening examination. PERTINENT HISTORY: Non-contributory. TECHNIQUE: Digital bilateral breast nikia (3D mammographic acquisition) in the CC and MLO projections. 2-D mediolateral oblique (MLO) and craniocaudad (CC) views of both breasts were obtained. CAD: Full Field Digital Mammography with Computer Added Detection was performed. COMPARISON: Comparison is made with prior study November 23, 2022 and November 20, 2021. FINDINGS: Breast Composition: There are scattered areas of fibroglandular density. There are no dominant masses or suspicious calcifications. Stable bilateral fat containing axillary lymph nodes. No other significant abnormalities are identified. There has been no significant change since the prior study. BI/SCRN MAMM (CAD)W/NIKIA BILAT IMPRESSION: Stable bilateral screening mammogram. Yearly follow-up mammogram recommended. (A) ASSESSMENT CATEGORY: BIRADS Category 2: Benign. A letter regarding these results will be sent to the patient by the facility within 30 days. Approximately 10% of breast cancers are not detected by mammography. A normal mammogram should not delay biopsy of a clinically suspicious abnormality. [id number] Electronically Signed: Ned Cheng MD at 8:27 EDT ,
== END | disposition home or self-care (01) ==
LOC: OPBI 15:21
PROVIDERS: PCP Family Medicine; Referring Provider Nurse Practitioner Family; Visit Provider Nurse Practitioner Family
DX: Z12.31 Encounter for screening mammogram for malignant neoplasm of breast (principal)
CPT/HCPCS: 77063; 77067

== ENCOUNTER → 2023-12-29 | Outpatient (CLI) | payer OTHER, SELFPAY ==
[2023-12-29 18:10] LABS: Hematocrit 41.4 % (37-47); Hemoglobin 14.2 g/dL (12.0-15.0); Mean Corp Hgb Conc 34.3 g/dL (32-36); Mean Corpuscular Hgb 30.5 pg (27.0-32.0); Mean Platelet Vol. 9.8 fl (6.2-12.0); Platelet Count 242 K/mm3 (150-450); RBC Distribution Width CV 12.2 % (11.6-14.6); RBC Distribution Width SD 39.4 fl (35.1-43.9); Red Blood Count 4.65 M/mm3 (4.2-5.4); White Blood Count 7.5 K/mm3 (4.4-11.0)
[2023-12-29 18:22] LABS: Vitamin B12 1756 pg/mL (211-911); Vitamin D,25 Hydroxy 77.5 ng/mL
[2023-12-29 18:28] LABS: Erythrocyte Sedimentation Rate 7 mm/hr (0-30)
[2023-12-29 18:35] LABS: AST(SGOT) 27 U/L (15-37); Alanine Aminotransfer ALT/SGPT 34 U/L (13-56); Albumin, Serum 3.9 g/dL (3.2-5.0); Alkaline Phosphatase 70 U/L (45-117); Anion Gap 9 (5-15); BUN 15 mg/dL (7-18); CRP < 2.90 mg/L (0.0-3.0); Calcium,Total 9.5 mg/dL (8.5-10.1); Chloride 106 mmol/L (98-107); Cholesterol 214 mg/dL (200); Creatinine, Serum 0.94 mg/dL (0.55-1.02); EST Glomerular Filtration Rate 66 mL/min (>60); Est Glom Filt Rate - Afr Amer 80 mL/min (>60); Globulin 4.1 g/dL (2.2-4.2); Glucose 83 mg/dL (74-106); High Density Lipoprotein 39 mg/dL; Potassium 3.9 mmol/L (3.5-5.1); Sodium Level 140 mmol/L (136-145); Thyroid Stim Hormone (TSH) 1.71 uIU/mL (0.358-3.74); Triglycerides 166 mg/dL; Very Low Density Lipoprotein 33 mg/dL (5-40)
== END | disposition home or self-care (01) ==
LOC: MFPLAB 15:26
PROVIDERS: PCP Family Medicine; Visit Provider Family Medicine
DX: R53.83 Other fatigue (principal); M06.9 Rheumatoid arthritis, unspecified; Z13.220 Encounter for screening for lipoid disorders
CPT/HCPCS: 36415; 80053; 80061; 82306; 82607; 84443; 85027; 85652; 86140

== ENCOUNTER → 2024-12-01 | Outpatient (CLI) | payer OTHER, SELFPAY ==
--- NOTE | 2024-12-01 15:14 | BI_ITS ---
EXAM: SCRN MAMM (CAD)W/NIKIA BILAT DATE: 12/01/2024 CLINICAL HISTORY: F, Age 54 y/o , SCREENING BREAST CANCER RISK ASSESSMENT: Has not been calculated TECHNIQUE: Bilateral screening digital breast tomosynthesis with 2D and 3D images. Computer aided detection. COMPARISON: Prior exam(s) dated 11/29/2023 and 11/23/2022. FINDINGS: TISSUE DENSITY: The breast tissue is composed of scattered area of fibroglandular density. Bilateral Breast Mammographic Findings: No significant masses, calcifications or other abnormalities are identified. Benign round microcalcifications are seen in both breasts. A stable lobulated nodular density is seen laterally in the left breast. BI/SCRN MAMM (CAD)W/NIKIA BILAT IMPRESSION: OVERALL FINAL ASSESSMENT: BIRADS 2 BENIGN FINDING RECOMMENDATION: Routine annual follow-up in 1 Year A letter with findings and recommendations will be mailed to the patient. Reading Location: [id number]
== END | disposition home or self-care (01) ==
LOC: OPBI 15:10
PROVIDERS: Referring Provider Nurse Practitioner Family; Visit Provider Nurse Practitioner Family
DX: Z12.31 Encounter for screening mammogram for malignant neoplasm of breast (principal)
CPT/HCPCS: 77063; 77067

== ENCOUNTER → 2025-04-04 | Outpatient (CLI) | payer OTHER, SELFPAY ==
--- NOTE | 2025-04-04 15:51 | RAD_ITS ---
PROCEDURE: CERV SPINE 2 OR 3 VIEWS 04/04/2025 REASON FOR EXAM: NECK PAIN TECHNIQUE: Procedure Code: RADSPCL Modality: DX Procedure: CERV SPINE 2 OR 3 VIEWS COMPARISON: Cervical spine series, 10/04/2018. FINDINGS: There is reversal of the normal cervical lordosis. There are no compression fractures or subluxations. There is degenerative disc disease, C4-5, C5-6 and C6-7 with narrowing of the intervertebral disc spaces and marginal osteophytes. There is 2 mm of degenerative retrolisthesis of C4 on C5, C5 on C6 and C6 on C7. The paravertebral soft tissues are normal. RAD/Cerv Spine 2 or 3 Views IMPRESSION: 1. Cervical spasm. 2. Multilevel degenerative disc disease. 3. Multilevel spondylolisthesis as described. Reading Location: [id number]
== END | disposition home or self-care (01) ==
LOC: MTRAD 15:49
DX: M54.2 Cervicalgia (principal)
CPT/HCPCS: 72040

== ENCOUNTER → 2025-04-09 | Outpatient (CLI) | payer OTHER, SELFPAY ==
--- NOTE | 2025-04-09 16:23 | RAD_ITS ---
PROCEDURE: CERV SPINE 4 OR 5 VIEWS 04/09/2025 REASON FOR EXAM: NECK PAIN TECHNIQUE: Procedure Code: RADSP Modality: DX Procedure: CERV SPINE 4 OR 5 VIEWS COMPARISON: 04/04/25. FINDINGS: No acute fracture or subluxation. Mild reversal of the normal curvature of the cervical spine, unchanged. Moderate to severe disc space narrowing and anterior osteophytosis is noted at C4-5, C5-6, and C6- 7, not significantly changed. Flexion and extension views reveal no ligamentous laxity. The prevertebral soft tissues appear unremarkable. RAD/Cerv Spine 4 or 5 Views IMPRESSION: As above. Reading Location: [id number]
== END | disposition home or self-care (01) ==
LOC: MTRAD 16:20
PROVIDERS: Referring Provider Family Medicine; Visit Provider Family Medicine
DX: M50.30 Other cervical disc degeneration, unspecified cervical region (principal); M43.12 Spondylolisthesis, cervical region
CPT/HCPCS: 72050

== ENCOUNTER 2025-04-10 11:19 | Emergency (ER) | payer OTHER, SELFPAY ==
[2025-04-10 11:20] VITALS: BP 144/83; PULSE 104; RESP 18; TEMP 37.1; O2SAT 99; BMI 31.8
--- NOTE | 2025-04-10 13:38 | CT_ITS ---
PROCEDURE: SOFT TISSUE NECK WITH CONTRAST 04/10/2025 REASON FOR EXAM: NECK PAIN Left-sided soft tissue swelling and redness. TECHNIQUE: Procedure Code: CTNEW Modality: CT Procedure: SOFT TISSUE NECK WITH CONTRAST CONTRAST: Isovue 370 VOLUME: 90 mL One or more dose reduction techniques were used (e.g., Automated exposure control, adjustment of the mA and/or kV according to patient size, use of iterative reconstruction technique). RADIATION DOSE SUMMARY: CTDlvol: 15.2 mGy DLP: 421.52 mGycm COMPARISON: None FINDINGS: Airway: Midline and patent. Salivary glands: Mild enlargement of the left parotid gland. There is a 1 cm enhancing lymph node along its inferior aspect of the left parotid gland. Left parotiditis should be ruled out. Lymph nodes: Mild reactive enlargement of multiple cervical lymph nodes. Thyroid: Unremarkable. Vasculature: Carotid arteries and internal jugular veins are unremarkable. Orbits: Unremarkable at visualized levels. Paranasal sinuses and mastoids: Grossly clear at visualized levels. Lung apices: Clear. Upper mediastinum: Visualized mediastinum is unremarkable. Bones: Unremarkable. Other: CT/Soft Tissue Neck WITH Contrast IMPRESSION: Swelling of the left parotid gland with the 1 cm lymph node seen along its infe rior margin. Parotiditis should be ruled out. Reading Location: [id number]
--- NOTE | 2025-04-10 13:40 | EDS_ITS ---
HPI History of Present Illness Chief Complaint: General Illness Informant: patient Onset/Context/Timing Onset: Weeks (2) Context: Gradual Onset Timing: Continuous Quality: Aching Location: Left neck and left cheek Worsened by: Nothing Relieved by: Nothing Narrative Narrative: Patient presents with neck pain and swelling that has been getting worse over the past 2 weeks. Patient states she was given prescriptions for cyclobenzaprine and prednisone. Patient states she has been taking these with no improvement. Patient states the pain is worse over the left side of her neck. Patient states it is gradually getting worse. Patient states she developed a fever up to 102.5 at home. Patient states her pain gets into her back. Patient also admits to some redness to her left cheek. Patient is unsure if this is an allergic reaction to the medications. Patient denies any difficulty swallowing or difficulty breathing. [facility] Medical History Wears contact lenses Wears glasses Non-smoker Sleep apnea History of echocardiogram History of adenomatous polyp of colon Family history of malignant neoplasm of colon in father Gastroesophageal reflux disease Anxiety Osteoarthritis Chronic constipation History of peptic ulcer disease HTN (hypertension) Rheumatoid arthritis History of DVT (deep vein thrombosis) Home Medications ?Medication ?Instructions ?Recorded ?Last Taken ?Type Bacillus coagulans 250 million 1 ea PO DAILY supplemen t 07/21/17 11/12/23 History cell chewable tablet multivitamin 1 ea PO DAILY vitamin 11/12/23 History omega-3 fatty acids-fish oil 300 1 ea PO DAILY supplem ent 07/21/17 11/12/23 History mg-1,000 mg capsule omeprazole magnesium 20 mg 20 mg PO DAILY GERD 1 11/15/23 History capsule,delayed release cholecalciferol (vitamin D3) 25 1,000 unit PO DAILY chacon pplement 11/06/20 11/12/23 History mcg (1,000 unit) chewable tablet magnesium oxide 200 mg PO DAILY suipplement 11/06/20 11/12/23 History vitamin C 50 mg-biotin 1,250 mcg 1 each PO DAILY vitam in 11/06/20 11/12/23 History chewable tablet turmeric 400 mg capsule 400 mg PO DAILY supplement 0 03/30/22 11/12/23 History bupropion HCl 300 mg 24 hr tablet, 300 mg PO QAM 09/2311/15/23 History extended release (Wellbutrin XL) cyanocobalamin (vitamin B-12) 1,000 mcg PO DAILY 09/2311/12/23 History 1,000 mcg tablet (Vitamin B-12) amoxicillin 875 mg-potassium 875 mg PO Q12H #20 TABLET S 04/10/25 Unknown Rx clavulanate 125 mg tablet hydrocodone-acetaminophen 5-325mg 1 tab PO Q6H PRN PRN Pain 3 days 04/10/25 Unknown Rx 5mg-325mg #10 TABLETS Allergy/AdvReac Type Severity Reaction Status Date / Time bee venom protein (honey bee) Allergy Swelling Verified 04/10/25 11:21 Family History (Updated 09/23/23 @ 08:33 by Loree Monreal) Sister Cancer leukemia Hypertension Mother Heart disease Father Colon cancer, Onset Age: 60 early 60's w/colon ca Aunt Colon polyps Paternal Aunts Surgical History History of appendectomy (~03/2022) History of bone marrow donation History of carpal tunnel release History of colonoscopy History of esophagogastroduodenoscopy (EGD) History of cholecystectomy History of salpingo-oophorectomy Social History current occupational status: employed Smoking Status: Never smoker alcohol intake: never substance use type: does not use ROS ROS ED Constitutional Constitutional ED: Reports fever(s); Denies chills Eyes Eyes: Denies blurry vision or change in vision ENT ENT ED: Denies rhinorrhea or sore throat Cardiovascular Cardiovascular: Denies chest pain or palpitations Respiratory/Chest Respiratory/Chest: Denies cough or dyspnea Gastrointestinal Gastrointestinal: Denies nausea or vomiting Genitourinary Genitourinary ED: Denies dysuria or hematuria Musculoskeletal Musculoskeletal: Reports back pain and neck pain Integumentary Reports rash; Denies abscess Neurologic Neurologic: Reports headache(s); Denies weakness Allergic/Immunologic Allergic/Immunologic ED: Denies mouth swelling or urticaria EXAM Physical Exam Const Vital Signs: 04/10/25 11:20 04/10/25 14:09 04/10/25 15:00 Temperature 98.7 F 98.5 F Temperature Source Oral Oral Pulse Rate 104 H 90 Respiratory Rate 18 14 Respiratory Effort Normal Respiratory Pattern Normal Blood Pressure 144/83 H 149/79 H Blood Pressure Mean 103 102 Pulse Ox 99 95 Oxygen Delivery Method Room Air Room Air Positive well nourished and well developed Constitutional Narrative: BMI is 31.9. General Appearance ED: well developed and NAD HEENT Reports moist mucous membranes HEENT Narrative: There is erythema, warmth, and induration over the left cheek and lateral nose. There is no fluctuance. There is no discharge or drainage. There are no vesicles or pustules noted. There are no petechia noted. Oropharynx is clear. Airway is patent. There are no exudates on the tonsils. Neck supple and no JVD Neck Narrative: There is tenderness over the left anterior cervical area. There is no fluctuance. There is no erythema. Oropharynx is clear. Airway is patent. Resp normal respiratory effort and clear to auscultation bilaterally Cardio regular rate GI non-tender and non-distended Palpation: soft Neuro oriented x3, CN's II-XII intact bilaterally and no sensory deficits noted Sensorium / Orientation: alert Motor Exam: strength 5/5 throughout Psych mental status grossly normal MDM MDM MDM Narrative Medical decision making narrative: Differential diagnosis includes parapharyngeal abscess, branchial cleft cyst, cervical lymphadenitis, erysipelas, strep pharyngitis, and electrolyte abnormality. CT scan of the soft tissue neck will be obtained to assess for parapharyngeal abscess and branchial cleft cyst. CBC will be obtained to assess for leukocytosis and anemia. Basic metabolic profile will be obtained to assess for electrolyte abnormality and renal function. Blood cultures will be obtained to assess for sepsis. COVID-19, influenza, RSV PCR will be obtained to assess for viral illness. Rapid strep will be obtained to assess for strep pharyngitis. Lab Data Attestation: I reviewed the patient's lab results. Lab results narrative: CT was reviewed. There is a mild leukocytosis of 14.1. The remainder is within normal limits. Basic metabolic profile was reviewed and was essentially within normal limits. COVID-19 PCR was reviewed and was negative. Influenza PCR was reviewed and was negative for influenza A and influenza B. RSV PCR was reviewed and was negative. Labs: Laboratory Results - last 24 hr 04/10/25 13:58 WBC 14.1 H RBC 4.35 Hgb 13.1 Hct 38.0 MCV 87.4 MCH 30.1 MCHC 34.5 RDW Std Deviation 39.4 RDW Coeff of Ryan 12.3 Plt Count 273 MPV 8.8 Immature Gran % (Auto) 1.000 H Neut % (Auto) 81.4 H Lymph % (Auto) 11.1 L Bee % (Auto) 6.0 Eos % (Auto) 0.1 Baso % (Auto) 0.4 Absolute Neuts (auto) 11.5 H Absolute Lymphs (auto) 1.56 Nucleated RBC % 0 Sodium 135 Potassium 4.1 Chloride 99 Carbon Dioxide 24.8 Anion Gap 12 BUN 13 Creatinine 0.91 Estim Creat Clear Calc 79.68 Est GFR (MDRD) Non-Af 75 BUN/Creatinine Ratio 13.7 Glucose 105 H Calcium 9.2 Radiography Diagnostic Testing: Clinical Impression(s) from Imaging Studies Soft Tissue Neck CT 04/10/25 13:38 IMPRESSION: Swelling of the left parotid gland with the 1 cm lymph node seen along its inferior margin. Parotiditis should be ruled out. Reading Location: [facility] CT scan soft tissue neck was obtained. There is swelling of the left parotid gland with a 1 cm lymph node along the inferior margin. There is no evidence of any abscess. This was interpreted by the radiologist and was also independently reviewed by myself. Treatment and Re-Evaluation :: Patient was given IV fluids, morphine, and Zofran. Patient was given a dose of Augmentin here. Patient was given a prescription for Augmentin. Patient was instructed to follow-up with her primary care physician in 3 to 5 days. Patient understood and was agreeable with plan. All questions were answered. Discharge Plan Triage Chief Complaint: General Illness ED Provider: Leonel Lara Dx/Rx/DC Orders Clinical Impression: Acute parotitis, Cellulitis of face Instructions: ED Cellulitis, Facial, ED Salivary Gland Infection Prescriptions: New amoxicillin-pot clavulanate 875-125 mg tablet 875 mg PO Q12H Qty: 20 0RF hydrocodone-acetaminophen 5-325 mg tablet 1 tab PO Q6H PRN PRN (Reason: Pain) 3 Days Qty: 10 0RF No Action omeprazole magnesium 20 mg capsule,delayed release(DR/EC) 20 mg PO DAILY cyanocobalamin (vitamin B-12) [Vitamin B-12] 1,000 mcg tablet 1,000 mcg PO DAILY bupropion HCl [Wellbutrin XL] 300 mg tablet extended release 24 hr 300 mg PO QAM multivitamin 1 EACH tablet 1 ea PO DAILY omega-3 fatty acids-fish oil 1 EACH capsule 1 ea PO DAILY Bacillus coagulans 1 EACH tablet,chewable 1 ea PO DAILY cholecalciferol (vitamin D3) 25 MCG tablet,chewable 1,000 unit PO DAILY vitamin C-biotin 1 EACH tablet,chewable 1 each PO DAILY magnesium oxide 200 MG tablet,chewable 200 mg PO DAILY turmeric 400 mg Capsule 400 mg PO DAILY Primary Care Provider: ABENA ONEILL Referrals: ABENA ONEILL [Other] - 3-5 Days Print Language: Georgian Disposition Disposition: Home, Self Care
[2025-04-10] MEDS: 0.9% Normal Saline (1000mL) 1,000 ML 1000 ML IV (14:05)
[2025-04-10 14:20] LABS: Hematocrit 38.0 % (37-47); Hemoglobin 13.1 g/dL (12.0-15.0); Immature Granulocytes Count 0.140 X10^3/uL (0.0-0.0); Mean Corp Hgb Conc 34.5 g/dL (32-36); Mean Corpuscular Volume 87.4 fL (81-99); Mean Platelet Vol. 8.8 fl (6.2-12.0); NRBC Flagged by Analyzer 0 % (0-5); Platelet Count 273 K/mm3 (150-450); RBC Distribution Width CV 12.3 % (11.6-14.6); RBC Distribution Width SD 39.4 fl (35.1-43.9); Red Blood Count 4.35 M/mm3 (4.2-5.4); White Blood Count 14.1 K/mm3 (4.4-11.0)
[2025-04-10 15:00] VITALS: BP 149/79; PULSE 90; RESP 14; TEMP 36.9; O2SAT 95
[2025-04-10 15:06] LABS: Anion Gap 12 (5-15); BUN 13 mg/dL (4-19); BUN/Creat Ratio 13.7 RATIO (10-20); Calcium,Total 9.2 mg/dL (7.6-11.0); Carbon Dioxide 24.8 mmol/L (21.0-32.0); Chloride 99 mmol/L (98-108); Estimated Creatinine Clearance 79.68 ml/min (50-250); Glucose 105 mg/dL (70-99); Potassium 4.1 mmol/L (3.3-5.1)
[2025-04-10 16:00] VITALS: BP 149/79; PULSE 90; RESP 14; TEMP 36.9; O2SAT 95
--- OUTSIDE RECORDS SUMMARY | 2025-04-10 22:05 | XMS RPT_ITS | CCD ---
Author Organization [facility] CliniSyal Care Team Providers Care Puppet Engineer Name Role Phone Dr. Damian Powell Primary Care Provider MD Bennett Mast Emergency Provider Dr. Juan David Patino Attending Provider Dr. Juan David Patino Other Provider Dr. Juan David Patino Admit Provider Dr. Damian Powell Primary Care Provider [phone] Dr. Juan David Patino Attending Provider Dr. Juan David Patino Referring Provider Vasu Powell MD Primary Care Provider ANTHONY RICHARDSON Attending Unavailable SELF, SELF Referring Unavailable VASU POWELL Primary Care UnavailDr. Vasu Arana Primary Care Provider Loree Monreal Attending Provider Unavailable Dr. Vasu Powell Referring Provider [phone] Dr. Juan David Patino Attending Provider Dr. Juan David Patino Other Provider [phone] Unavailable Primary Care Provider UnavailVasu Arana MD Primary Care Provider LITTLE MARINELLI Primary Care Provider Distant PARADI OPERATOR-C, Nusrat Attending Provider Distant PARADI OPERATOR-C, Nursat Referring Provider VASU POWELL Primary Care Unavailabl e NICOLAS, NUSRAT Referring Unavailable VASU POWELL Primary Care Unavailabl e NICOLAS, NUSRAT Attending Unavailable VASU POWELL Primary Care Unavailabl e Little Marinelli DO Primary Care Provider [phone] DAT MONDRAGON Attending Unavailable SHARHORACE, LASHAUN Attending Unavailable RIGO, LASHAUN Attending Unavailable RIGO, LASHAUN Referring Unavailable LITTLE MARINELLI Primary Care Unavailable RIGO, LASHAUN Attending Unavailable LITTLE MARINELLI Referring Unavailable BRANDI SMITH Primary Care Unavailable TEJAL PARKER Attending Unavailable LAINEZ, PHU Primary Care Unavailable Distant PARADI OPERATOR, Nusrat Referring Unavailable Distant PARADI OPERATOR, Nusrat Attending Unavailable LAINEZ, PHU Referring Unavailable LAINEZ, PHU Attending Unavailable LAINEZ, PHU Primary Care Unavailable LAINEZ, PHU Primary Care Unavailable LAINEZ, PHU Referring Unavailable FATOU, PHU Attending Unavailable LITTLE MARINELLI Primary Care Provider [phone] LITTLE MARINELLI Attending Provider [phone] LITTLE MARINELLI Referring Provider [phone] Little Marinelli DO Attending Provider [phone] Dr. Little Marinelli DO Referring Provider Dr. Leonel Lara DO Emergency Provider [phone] Allergies Allergy Classification Reported Allergen(s) Allergy Type Date of Onset Reaction(s) Facility (16 sources) bee venom protein (honey bee); Translations: [BEE VENOM PROTEIN (HONEY BEE)] Allergy to substance 09-15-2017 [facility] (1 source) bee venom protein (honey bee) Drug allergy (disorder) 11-15-2023 [facility] Repository Medications Current Medications Medication Drug Class(es) Dates Sig (Normalized) Sig (Original) acetaminophen 325 mg / HYDROcodone bitartrate 5 mg oral tablet (1 source) Opioid Agonist Start: 04-10-2025 take 1 tablet by mouth every six hours as needed for pain Hydrocodone-Acetam inophen 5-325 mg tablet Active 1 {tbl} PO EVERY 6 HOURS NEEDED as needed for Pain 10 3 0 April 10, 2025 Acute parotitis Acute sialoadenitis amoxicillin 875 mg / clavulanate 125 mg oral tablet (1 source) Penicillin-class Antibacterial Start: 04-10-2025 take 1 tablet by mouth every twelve hours Amoxicillin-Pot Clavulanate 875-125 mg tablet Active 875 mg PO Q12H 20 0 April 10, 2025 12:00am ascorbic acid 500 mg chewable tablet (7 sources) Vitamin C take 1 tablet by mouth once daily Ascorbic Acid (vitamin C) 500 MG tablet Take 500 mg by mouth daily. Active take 1 tablet by mouth once anusha y Ascorbic Acid (VITAMIN C) 1,000 mg tablet Take 1,000 mg by mouth once daily. Active Comment on above: Take 1,000 mg by elisha once daily. B Complex Vitamins (VITAMIN B COMPLEX W/B-12 PO) (4 sources) B Complex Vitami ns (VITAMIN B COMPLEX W/B-12 PO) every other day. Active bacillus coagulans [id number] unt chewable tablet (13 sources) Start: 07-21-2017 take 1 tablet by mouth once daily Bacillus Coagulans 1 EACH tablet,chewable Active 1 NMA PO DAILY July 21, 2017 1:00am supplement Start: 07-21-2017 Bacillus Coagu lans Active 1 EACH PO DAILY July 21, 2017 1:00am BACILLUS COAGULA NS (PROBIOTIC, B. COAGULANS, ORAL) Take by mouth. 0 Active Comment on above: Take by mouth. Bacillus coagulans / Inulin (4 sources) Bacillus Coagulans-Inulin (PROBIOTIC FORMULA PO) daily. Active 24 hr buPROPion hydrochloride 300 mg extended release oral tablet (10 sources) Aminoketone Start: 09-23-2023 take 1 tablet by mouth once daily in the morning Bupropion Hcl (Wellbutrin Xl) 300 mg tablet extended release 24 hr Active 300 mg PO EVERY MORNING September 23, 2023 1:00am Start: 09-14-2023 buPROPion XL ( WELLBUTRIN XL) 300 mg 24 hr tablet 09/14/2023 Active calcium carbonate 500 mg oral tablet (4 sources) take 500 mg by mouth once daily Calcium Carbonate (CALCIUM 500 PO) Take 500 mg by mouth daily. Active cholecalciferol 0.025 mg chewable tablet (16 sources) Vitamin D Start: 11-06-2020 Cholecalciferol (Vitamin D3) 25 MCG tablet,chewable Active 1000 U PO DAILY November 06, 2020 12:00am supplement Start: 11-06-2020 take 1000 [IU] by mo [facility] once daily Cholecalciferol (Vitamin D3) Active 1000 UNIT PO DAILY November 06, 2020 12:00am cholecalciferol (Vitamin D3) 25 MCG (1000 UT) tablet Take by mouth daily. Active cranberry preparation 50 mg chewable tablet (4 sources) Non-Standardized Food Allergenic Extract, Non-Standardized Plant Allergenic Extract Cranberry 50 MG chewable tablet Chew daily. Active docosahexaenoic acid 120 mg / eicosapentaenoic acid 180 mg oral capsule (4 sources) take 1 capsule by mouth once daily omega-3 1000 MG capsule capsule Take 1,000 mg by mouth daily. Active doxycycline monohydrate 100 mg oral tablet (1 source) Tetracycline-class Drug Start: 023 End: 023 take 1 tablet by mouth twice daily doxycycline monohydrate 100 mg tablet Indications: Boil of lower extremity Take 1 tablet by mouth twice daily for 5 days. 10 tablet 0 03/25/2023 03/30/2023 Active Comment on above: Take 1 tablet by elisha twice daily for 5 days. fish,bora,flax oils-om3,6,9no1 (OMEGA 3-6-9) 1,200 mg cap (3 sources) Start: 018 fish,bora,flax oils-om3,6,9no1 (OMEGA 3-6-9) 1,200 mg cap Take by mouth. 01/18/2018 Active Start: 01-18-2018 fish,bora,flax oils-om3,6,9no1 (OMEGA 3-6-9) 1,200 mg cap Take by mouth. 0 01/18/2018 Active Comment on above: Take by mouth. fluticasone propionate 0.05 mg/actuat metered dose nasal spray (3 sources) Corticosteroid Start: 10-08-2020 Fluticasone Propionate Active 1 PUFF INTRANASAL DAILY October 08, 2020 4:21pm Magnesium (4 sources) take 1 capsule by mouth once daily Magnesium 300 MG capsule Take 1 capsule by mouth daily. Active magnesium oxide 200 mg oral tablet (12 sources) Start: 11-06-2020 take 1 tablet by mouth once daily Magnesium Oxide 200 MG tablet,chewable Active 200 mg PO DAILY November 06, 2020 12:00am [facility] Multiple Vitamins-Minerals (MULTIVITAMIN ADULT, MINERALS, PO) (4 sources) Multiple Vitamins-Minerals (MULTIVITAMIN ADULT, MINERALS, PO) Every 24 hours. Active Multivitamin 1 EACH tablet (2 sources) Start: 07-21-2017 Multivitamin 1 EACH tablet Active 1 NMA PO DAILY July 21, 2017 1:00am vitamin Start: 07-21-2017 Multivitamin 1 EACH tablet Active 1 NMA PO DAILY July 21, 2017 1:00am Multivitamin capsule (3 sources) take 1 capsule by mo uth once daily Multivitamin capsule Take 1 capsule by mouth once daily. Active take 1 capsule by mouth once iris ly Multivitamin capsule Take 1 capsule by mouth once daily. 0 Active Comment on above: Take 1 capsule by mo uth once daily. Multivitamin preparation (10 sources) Start: 07-21-2017 Multivitamin Active 1 EA PO DAILY July 21, 2017 12:37pm Start: 07-21-2017 Multivitamin A ctive 1 EACH PO DAILY July 21, 2017 1:00am Start: 07-21-2017 Multivitamin A ctive 1 EA PO DAILY July 21, 2017 12:00am Start: 07-21-2017 Multivitamin A ctive 1 EA PO DAILY July 21, 2017 1:00am [place]-3 Fatty Acids-Fish Oil (10 sources) Start: 07-21-2017 [place]-3 Fatty Acids-Fish Oil Active 1 EA PO DAILY July 21, 2017 12:37pm Start: 07-21-2017 [place]-3 Fatty Acids-Fish Oil Active 1 EACH PO DAILY July 21, 2017 1:00am Start: 07-21-2017 [place]-3 Fatty Acids-Fish Oil Active 1 EA PO DAILY July 21, 2017 12:00am Start: 07-21-2017 [place]-3 Fatty Acids-Fish Oil Active 1 EA PO DAILY July 21, 2017 1:00am [place]-3 Fatty Acids-Fish Oil 1 EACH capsule (2 sources) Start: 07-21-2017 [place]-3 Fatty Acids-Fish Oil 1 EACH capsule Active 1 NMA PO DAILY July 21, 2017 1:00am supplement Start: 07-21-2017 [place]-3 Fatty Acids-Fish Oil 1 EACH capsule Active 1 NMA PO DAILY July 21, 2017 1:00am omeprazole 20 mg delayed release oral capsule (18 sources) Proton Pump Inhibitor Start: 10-08-2020 take 1 capsule by mouth once daily Omeprazole Magnesium 20 mg capsule,delayed release(DR/EC) Active 20 mg PO DAILY October 08, 2020 1:00am GERD take 1 tablet by elisha th once daily before breakfast omeprazole OTC (PriLOSEC OTC) 20 MG EC tablet Take 20 mg by mouth every morning (before breakfast). Active Specialty Vitamins Products (MENOPAUSE SUPPORT PO) (4 sources) Specialty Vitami ns Products (MENOPAUSE SUPPORT PO) Take by mouth daily. Active Turmeric extract (9 sources) Start: 03-30-2022 take 1 capsule by mouth once daily Turmeric 400 mg Capsule Active 400 mg PO DAILY March 30, 2022 12:00am supplement Start: 03-30-2022 take 1 capsule by mo uth once daily Turmeric 400 mg Capsule Active 400 mg PO DAILY March 30, 2022 12:00am Start: 03-30-2022 take 400 mg by mouth once anusha y Turmeric Active 400 MG PO DAILY March 29, 2022 11:00pm Start: 03-30-2022 take 400 mg by mouth once anusha y Turmeric Active 400 MG PO DAILY March 30, 2022 12:00am 24 hr venlafaxine 75 mg extended release oral capsule (4 sources) Serotonin and Norepinephrine Reuptake Inhibitor Start: 12-26-2024 take 1 capsule by mouth once daily venlafaxine XR (Effexor XR) 75 MG 24 hr capsule Take 75 mg by mouth daily. 12/26/2024 Active vitamin b12 1 mg oral tablet (4 sources) Vitamin B12 Start: 09-23-2023 take 1 tablet by mouth once daily Cyanocobalamin (Vitamin B-12) (Vitamin B-12) 1,000 mcg tablet Active 1000 ug PO DAILY September 23, 2023 1:00am Vitamin C-Biotin (10 sources) Start: 11-06-2020 Vitamin C-Biotin Active 1 EACH PO DAILY November 06, 2020 11:06am Start: 11-06-2020 Vitamin C-Biot in Active 1 EACH PO DAILY November 05, 2020 11:00pm Start: 11-06-2020 Vitamin C-Biot in Active 1 EACH PO DAILY November 06, 2020 12:00am Vitamin C-Biotin 1 EACH tablet,chewable (2 sources) Start: 11-06-2020 Vitamin C-Biot in 1 EACH tablet,chewable Active 1 NMA PO DAILY November 06, 2020 12:00am vitamin Start: 11-06-2020 Vitamin C-Biot in 1 EACH tablet,chewable Active 1 NMA PO DAILY November 06, 2020 12:00am Completed/Discontinued Medications Medication Drug Class(es) Dates Sig (Normalized) Sig (Original) cider vinegar 300 mg oral tablet (9 sources) Start: 03-30-2022 End: 09-23-2023 take 1 tablet by mouth once daily Apple Cider Vinegar 300 mg Tablet Discontinued 300 mg PO DAILY March 30, 2022 12:00am September 23, 2023 9:35am supplement takes gummies citalopram 20 mg oral tablet (13 sources) Serotonin Reuptake Inhibitor Start: 07-21-2017 End: 10-08-2020 take 1 tablet by mouth once daily Citalopram 20 MG tablet Discontinued 20 mg PO DAILY July 21, 2017 1:00am October 08, 2020 4:21pm Comment on above: Take 20 mg by mouth once daily. metroNIDAZOLE 500 mg oral tablet (1 source) Nitroimidazole Antimicrobial Start: 11-01-2024 End: 11-08-2024 take 1 tablet by mouth twice daily metroNIDAZOLE (FLAGYL) 500 mg tablet Indications: Bacterial vaginosis Take 1 tablet by mouth two times a day for 7 days. 14 tablet 11/01/2024 11/08/2024 oxyCODONE hydrochloride 5 mg oral tablet (8 sources) Opioid Agonist Start: 03-31-2022 End: 11-11-2023 take 1 tablet by mouth every six hours as needed for pain Oxycodone 5 mg Tablet Discontinued 5 mg PO EVERY 6 HOURS NEEDED as needed for Pain Score 6-10 10 5 0 March 31, 2022 November 11, 2023 9:08am Status post appendectomy Acquired absence of other specified parts of digestive tract Problems Active Problems Problem Classification Problem Date Documented Date Episodic/Chronic Appendicitis and other appendiceal conditions (12 sources) Acute appendicitis; Translations: [Unspecified acute appendicitis] Episodic Diseases of mouth; excluding dental (7 sources) Recurrent ulcer of mouth; Translations: [Other lesions of oral mucosa] Onset: 12-28-2024 12-28-2024 Episodic Esophageal disorders (14 sources) Gastroesophageal reflux disease; Translations: [Gastro-esophageal reflux disease without esophagitis] Onset: 10-28-2023 11-12-2020 Chronic Immunizations and screening for infectious disease (7 sources) Encounter for screening for infections with a predominantly sexual mode of transmission; Translations: [Anti-nuclear factor positive] Onset: 10-30-2024 12-28-2024 Episodic Inflammatory diseases of female pelvic organs (1 source) Bacterial vaginosis; Translations: [Acute vaginitis] 11-01-2024 Episodic Nausea and vomiting (12 sources) Nausea; Translations: [Nausea] Episodic Osteoarthritis (6 sources) Degenerative joint disease involving multiple joints; Translations: [Polyosteoarthritis, unspecified] Onset: 12-28-2024 12-28-2024 Chronic Other aftercare (4 sources) Taking high risk medication; Translations: [Other manager intermediate (current) drug therapy] 12-28-2024 Episodic Other aftercare (2 sources) Other manager intermediate (current) drug therapy; Translations: [Other manager intermediate (current) drug therapy] Onset: 12-28-2024 Episodic Other and unspecified benign neoplasm (4 sources) History of adenomatous polyp of colon; Translations: [Personal history of colonic polyps] 11-15-2023 Episodic Other and unspecified benign neoplasm (2 sources) Personal history of colonic polyps; Translations: [Personal history of colonic polyps] 11-15-2023 Episodic Other connective tissue disease (4 sources) H/O: rheumatoid arthritis; Translations: [Personal history of other diseases of the musculoskeletal system and connective tissue] 12-28-2024 Episodic Other connective tissue disease (2 sources) Personal history of other diseases of the musculoskeletal system and connective tissue; Translations: [Personal history of other diseases of the musculoskeletal system and connective tissue] Onset: 12-28-2024 Episodic Other nutritional; endocrine; and metabolic disorders (3 sources) Obese class I; Translations: [Obesity, unspecified] 08-05-2017 Chronic Other screening for suspected conditions (not mental disorders or infectious disease) (7 sources) Patient encounter status; Translations: [Encounter for screening for malignant neoplasm of colon] Onset: 12-06-2024 09-23-2023 Episodic Residual codes; unclassified (1 source) Obstructive sleep apnea (adult) (pediatric); Translations: [Obstructive sleep apnea (adult) (pediatric)] Onset: 05-22-2024 Chronic Residual codes; unclassified (14 sources) Family history of cancer of colon; Translations: [Family history of malignant neoplasm of digestive organs] Onset: 10-28-2023 10-08-2020 Episodic Residual codes; unclassified (1 source) Acquired absence of other specified parts of digestive tract; Translations: [Other postprocedural status] Episodic Residual codes; unclassified (2 sources) Family history of malignant neoplasm, unspecified; Translations: [Family history of malignant neoplasm, unspecified] Onset: 06-02-2023 Episodic Rheumatoid arthritis and related disease (9 sources) Systemic disease affecting skin; Translations: [Juvenile rheumatoid arthritis with systemic onset, unspecified site] Onset: 12-28-2024 08-05-2017 Chronic Skin and subcutaneous tissue infections (2 sources) Boil of lower limb; Translations: [Furuncle of limb, unspecified] 03-25-2023 Episodic Spondylosis; intervertebral disc disorders; other back problems (1 source) Cervicalgia; Translations: [Cervicalgia] Onset: 04-04-2025 Episodic Past or Other Problems Problem Classification Problem Date Documented Da te Episodic/Chronic Fluid and electrolyte disorders (2 sources) Disorder of fluid AND/OR electrolyte; Translations: [Other disorders of electrolyte and fluid balance, not elsewhere classified] Onset: 01-26-2011 Resolved: 08-05-2017 08-05-2017 Episodic Residual codes; unclassified (1 source) Finding related to blood, organ, or tissue donation; Translations: [Unspecified donor, stem cells] Onset: 06-05-2011 06-05-2011 Episodic Residual codes; unclassified (2 sources) Family history of malignant neoplasm of breast; Translations: [Family history of malignant neoplasm of breast] Onset: 10-27-2022 Episodic Residual codes; unclassified (2 sources) Stem cell donor; Translations: [Unspecified donor, stem cells] Onset: 06-05-2011 06-05-2011 Episodic Results Test Name Value Interpretation Reference Range Facility Absolute lymphocyte countOrd ered By: Leonel Lara on 04-10-2025 Lymphocytes Auto (Unsp spec) [#/Vol] 1.56 10*3/uL 0.83-4.51 [facility] Absolute neutrophil countOrd ered By: Leonel Lara on 04-10-2025 Neutrophils (Bld) [#/Vol] 11.5 10*3/uL High 2.0-7.7 [facility] Anion gap in Serum or Plasma Ordered By: Leonel Lara on 04-10-2025 Anion gap [Moles/Vol] 12 mmol/L 5-15 [facility] Automated lymphocyte count a s percentage of total leukocytesOrdered By: Leonel Lara on 04-10-2025 Lymphocytes/100 WBC Auto (Unsp spec) 11.1 % Low 19-41 [facility] BUN/creatinine ratioOrdered By: Leonel Lara on 04-10-2025 Urea nitrogen/Creatinine [Mass ratio] 13.7 mg/mg 10-20 [facility] Basophil percentageOrdered B y: Leonel Lara on 04-10-2025 Basophils/100 WBC (Bld) 0.4 % 0-1 [facility] Carbon dioxide, total [Moles /volume] in Central venous bloodOrdered By: Leonel Lara on 04-10-2025 CO2 [Moles/Vol] 24.8 mmol/L 21.0-32.0 [facility] Chloride assayOrdered By: Luis Lara on 04-10-2025 Chloride [Moles/Vol] 99 mmol/L 98-108 [facility] Eosinophil percentageOrdered By: Leonel Lara on 04-10-2025 Eosinophils/100 WBC (Bld) 0.1 % 0-5 [facility] Erythrocyte distribution wid th ratioOrdered By: Leonel Lara on 04-10-2025 Erythrocyte distribution width (RBC) [Ratio] 12.3 % 11.6-14.6 [facility] Erythrocyte distribution wid th standard deviationOrdered By: Leonel Lara on 04-10-2025 Erythrocyte distribution width (RBC) [Ratio] 39.4 fl 35.1-43.9 [facility] Glomerular filtration rate ( GFR) estimation/1.73 sq m using serum, plasma, or whole bOrdered By: Leonel Lara on 04-10-2025 GFR/1.73 sq M.predicted among non-blacks MDRD (S/P/Bld) [Vol rate/Area] 75 mL/min/{1.73_m2} >60 [facility] Comment on above: mL/min/1.73m2 CKD-EP I Creatinine Equation (2020) Hematocrit Auto (Bld) [Volum e fraction]Ordered By: Leonel Lara on 04-10-2025 Hematocrit (Bld) [Volume fraction] 38.0 % 37-47 [facility] Hemoglobin measurementOrdere d By: Leonel Lara on 04-10-2025 Hemoglobin (Bld) [Mass/Vol] 13.1 g/dL 12.0-15.0 [facility] Immature granulocytes/100 WB C Auto (Bld)Ordered By: Leonel Lara on 04-10-2025 Immature granulocytes/100 WBC (Bld) 1.000 % High 0.0-0.9 [facility] Comment on above: IG% - Immature Granu locytes (promyelocytes, myelocytes and metamyelocytes) > 1% indicates that a LEFT SHIFT is Present. Influenza virus A and B and SARS-CoV-2 (COVID-19) and Respiratory syncytial virus RNAOrdered By: Leonel Lara on 04-10-2025 SARS-CoV-2 (COVID-19) RNA BILLY+probe Ql (Unsp spec) [facility] MCV (mean corpuscular volume ) determinationOrdered By: Leonel Lara on 04-10-2025 MCV (RBC) [Entitic vol] 87.4 fL 81-99 [facility] Mean corpuscular hemoglobin (MCH) determinationOrdered By: Leonel Lara on 04-10-2025 MCH (RBC) [Entitic mass] 30.1 pg 27.0-32.0 [facility] Mean corpuscular hemoglobin concentration (MCHC) determinationOrdered By: Leonel Lara on 04-10-2025 MCHC (RBC) [Mass/Vol] 34.5 g/dL 32-36 [facility] Mean platelet volume determi nationOrdered By: Leonel Lara on 04-10-2025 Platelet mean volume (Bld) [Entitic vol] 8.8 fL 6.2-12.0 [facility] Monocyte percentageOrdered B y: Leonel Lara on 04-10-2025 Monocytes/100 WBC (Bld) 6.0 % 0-10 [facility] Neutrophil percentageOrdered By: Leonel Lara on 04-10-2025 Neutrophils/100 WBC (Bld) 81.4 % High 47-70 [facility] Nucleated red blood cell per centageOrdered By: Leonel Lara on 04-10-2025 Nucleated RBC/100 WBC (Bld) [Ratio] 0 % 0-5 [facility] Platelet countOrdered By: Luis Lara on 04-10-2025 Platelets (Bld) [#/Vol] 273 10*3/uL 150-450 [facility] Potassium measurement (mass/ volume)Ordered By: Leonel Lara on 04-10-2025 Potassium (Unsp spec) [Mass/Vol] 4.1 mmol/L 3.3-5.1 [facility] RBC Auto (Bld) [#/Vol]Ordere d By: Leonel Lara on 04-10-2025 RBC (Bld) [#/Vol] 4.35 10*6/uL 4.2-5.[address] [facility] Serum creatinine measurement (mass/volume)Ordered By: Leonel Lara on 04-10-2025 Creatinine [Mass/Vol] 0.91 mg/dL 0.70-1.20 [facility] Serum glucose measurement (m ass/volume)Ordered By: Leonel Lara on 04-10-2025 Glucose [Mass/Vol] 105 mg/dL High 70-99 [facility] Serum or plasma calcium nusrat urement (mass/volume)Ordered By: Leonel Lara on 04-10-2025 Calcium [Mass/Vol] 9.2 mg/dL 7.6-11.0 [facility] Serum or plasma urea nitroge n measurement (mass/volume)Ordered By: Leonel Lara on 04-10-2025 Urea nitrogen [Mass/Vol] 13 mg/dL 4-19 [facility] Sodium levelOrdered By: Leonel Lara on 04-10-2025 Sodium [Moles/Vol] 135 mmol/L 133-145 [facility] White blood cell (WBC) count Ordered By: Leonel Lara on 04-10-2025 WBC (Bld) [#/Vol] 14.1 10*3/uL High 4.4-11.[address] [facility] Cerv Spine 2 or 3 Viewson Cerv Spine 2 or 3 Views [facility] Imaging Services [address] [place], [place] [address] Cerv Spine 2 or 3 Views MR#: [id number] Acct: [id number] Name: JUNIOR FLORIAN Rep #: [id number] : 1970 F 54 From: Dallin Dang MD PCP: LITTLE MARINELLI Status: REG CLI Study: Cerv Spine 2 or 3 Views Date of Exam: 04/04/25 Exam# [id number] Ordering Dr: LITTLE MARINELLI PROCEDURE: CERV SPINE 2 OR 3 VIEWS 04/04/2025 REASON FOR EXAM: NECK PAIN TECHNIQUE: Procedure Code: RADSPCL Modality: DX Procedure: CERV SPINE 2 OR 3 VIEWS COMPARISON: Cervical spine series, 10/04/2018. FINDINGS: There is reversal of the normal cervical lordosis. There are no compression fractures or subluxations. There is degenerative disc disease, C4-5, C5-6 and C6-7 with narrowing of the intervertebral disc spaces and marginal osteophytes. There is 2 mm of degenerative retrolisthesis of C4 on C5, C5 on C6 and C6 on C7. The paravertebral soft tissues are normal. RAD/Cerv Spine 2 or 3 Views IMPRESSION: 1. Cervical spasm. 2. Multilevel degenerative disc disease. 3. Multilevel spondylolisthesis as described. [id number] CC: LITTLE MARINELLI Channel Opener: Signed Normal [facility] XR Foot - bilateral 3 Viewso n 01-01-2025 1. No acute findings . Report Dictated on Electronically Signed By: Elgin Sofia MD Electronically Signed Date/Time: 01/01/2025 12:41 PM EDT [facility] Patient Name: JUNIOR FLORIAN : 1970 Exam Date/Time: 12/28/2024 11:49 Procedure: XR FOOT 3+ VIEWS BILATERAL Ordering Provider: SIERRA TARIQ Reason For Exam: ARTHRITIS CLINICAL INFORMATION: Bilateral foot pain. Polyarthritis. AP, oblique, and lateral views of both feet are provided. FINDINGS: The joint spaces of both feet are well-maintained. No erosive changes are seen. There is no fracture or dislocation. The bone mineralization is within normal limits. [facility] [employer] [facility] Elgin Sofia MD - 01/01/2025 Patient Name: JUNIOR FLORIAN : 1970 Exam Date/Time: 12/28/2024 11:49 Procedure: XR FOOT 3+ VIEWS BILATERAL Ordering Provider: SIERRA TARIQ Reason For Exam: ARTHRITIS CLINICAL INFORMATION: Bilateral foot pain. Polyarthritis. AP, oblique, and lateral views of both feet are provided. FINDINGS: The joint spaces of both feet are well-maintained. No erosive changes are seen. There is no fracture or dislocation. The bone mineralization is within normal limits. IMPRESSION: 1. No acute findings. Report Dictated on Electronically Signed By: Elgin Sofia MD Electronically Signed Date/Time: 01/01/2025 12:41 PM EDT [facility] XR Foot - bilateral 3 ViewsO rdered By: Elgin Sofia on 01-01-2025 [facility] Work Phone: XR Hand - bilateral 3 Viewso n 12-31-2024 No acute osseous abnormality. Report Dictated on Electronically Signed By: Marko Altamirano DO Electronically Signed Date/Time: 12/31/2024 7:10 AM EDT [facility] [employer] Patient Name: JUNIOR FLORIAN : 1970 Exam Date/Time: 12/28/2024 11:49 Procedure: XR HAND 3+ VIEWS BILATERAL Ordering Provider: SIERRA TARIQ Reason For Exam: ARTHRITIS EXAM: XR Bilateral Hands Complete, 3 or More Views CLINICAL INDICATION: ARTHRITIS TECHNIQUE: Frontal, lateral and oblique views of the bilateral hands. COMPARISON: None. FINDINGS: BONES/JOINTS: Metallic left wrist bracelet overlies proximal radius and ulna. No acute fracture. No dislocation. No osseous erosion or periostitis. Normal bone mineral density. SOFT TISSUES: Unremarkable. No radiopaque foreign body. [facility] Marko Altamirano DO - 12/31/2024 [facility] 1970 [id number] Exam Date/Time: 12/28/2024 11:49 Procedure: XR HAND 3+ VIEWS BILATERAL Ordering Provider: SIERRA TARIQ Reason For Exam: ARTHRITIS EXAM: XR Bilateral Hands Complete, 3 or More Views CLINICAL INDICATION: ARTHRITIS TECHNIQUE: Frontal, lateral and oblique views of the bilateral hands. COMPARISON: None. FINDINGS: BONES/JOINTS: Metallic left wrist bracelet overlies proximal radius and ulna. No acute fracture. No dislocation. No osseous erosion or periostitis. Normal bone mineral density. SOFT TISSUES: Unremarkable. No radiopaque foreign body. IMPRESSION: No acute osseous abnormality. Report Dictated on Electronically Signed By: Marko Altamirano DO Electronically Signed Date/Time: 12/31/2024 7:10 AM EDT [facility] XR Hand - bilateral 3 ViewsO rdered By: Marko Altamirano on 12-31-2024 [facility] Work Phone: XR Wrist - bilateral 3 Views on 12-31-2024 No acute findings in the bilateral wrists. Report Dictated on Electronically Signed By: Marko Altamirano DO Electronically Signed Date/Time: 12/31/2024 7:08 AM T [employer] [facility] FLORIAN [facility] 1970 [id number] Exam Date/Time: 12/28/2024 11:49 Procedure: XR WRIST 3+ VIEWS BILATERAL Ordering Provider: SIERRA TARIQ Reason For Exam: ARTHRITIS EXAM: XR Bilateral Wrists Complete, 3 or More Views CLINICAL INDICATION: ARTHRITIS. Abdominal onset stills disease TECHNIQUE: Frontal, lateral and oblique views of the bilateral wrists. COMPARISON: None. FINDINGS: BONES/JOINTS: Left wrist: Metallic wrist and overlies partly obscures left carpal bone anatomy. No osseous erosion or periostitis.Normal bone density. No acute fracture. No dislocation. Right wrist: No osseous erosion or periostitis. Normal bone density. No acute fracture. No dislocation. SOFT TISSUES: Unremarkable. No radiopaque foreign body. [facility] Marko Altamirano DO - 12/31/2024 Patient Name: JUNIOR FLORIAN : 1970 [id number] Exam Date/Time: 12/28/2024 11:49 Procedure: XR WRIST 3+ VIEWS BILATERAL Ordering Provider: SIERRA TARIQ Reason For Exam: ARTHRITIS EXAM: XR Bilateral Wrists Complete, 3 or More Views CLINICAL INDICATION: ARTHRITIS. Abdominal onset stills disease TECHNIQUE: Frontal, lateral and oblique views of the bilateral wrists. COMPARISON: None. FINDINGS: BONES/JOINTS: Left wrist: Metallic wrist and overlies partly obscures left carpal bone anatomy. No osseous erosion or periostitis.Normal bone density. No acute fracture. No dislocation. Right wrist: No osseous erosion or periostitis. Normal bone density. No acute fracture. No dislocation. SOFT TISSUES: Unremarkable. No radiopaque foreign body. IMPRESSION: No acute findings in the bilateral wrists. Report Dictated on Electronically Signed By: Marko Altamirano DO Electronically Signed Date/Time: 12/31/2024 7:08 AM EDT [facility] No Panel Informationon 12-28 Radiology Study observation (narrative) [facility] Office Visiton 12-28-2024 Follow-up visit [id number] Junior Florian 1970 F Date Provider Department Center 12/28/2024 [id number] SIERRA [facility] RHEUM M None Chart Close Cosign Accepted by: LASHAUN SIERRA[MILENA] Chart Close Cosign Accepted on: WedDecember 28, 2024 11:56 AM Family History Family Status - Relation Status Age at Mother Alive Father Sister Daughter Alive Daughter Alive Level of Service:73875 ME OFFICE/OUTPATIENT NEW MODERATE MDM 45 MINUTES Reason for Visit and Comments: Consult [484] - RA, hx Stills, +MARVA Normal [facility] Progress Noteon 12-28-2024 Progress Note RHEUMATOLOGY CLINIC NOTE Junior Florian is a 54 y.o. year old female patient referred for RA/hx of Stills/+ MARVA. 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 Previously followed by Dr Urban in [place]. Had fevers, arthralgia, and rashes. Fever was present for >1 wk. Treated with methotrexate and steroids. Was on methotrexate for 2 years. Did report fatigue and worsening of joint pain on this medication. RA diagnosed following suspected AOSD. Patient reports positive MARVA and CCP. No repeated flares of the above necessarily, but does report extensive mouth sores. Entire mouth peels. Occurs 3-4x per year. No fevers during episodes. Ongoing for 8-10 years. In the past year reports 1-2 fevers (~100-101.1). Will check temperature when feeling fatigued. Reports generalized joint pain in knees, hips, elbows, and R shoulder. Knee and hip pain have been ongoing for ~15 yrs. R shoulder pain ongoing for 3-5 yrs, but now worsening. She does use this arm for art projects. Reports AM morning stiffness only lasting ~5-10 minutes. Joint pain worsens with both use and also if seated for an extended period of time. Reports improvement of hip pain with motion. Will take advil if joint pain is flaring. Advil does relieve pain. Endorses finger swelling all throughout the day. Pain and swelling in PIP joints. Using hands worsens this pain. No raynaud's phenomenon. No photosensitivity. Extensive hx of autoimmune disease and cancer in family members. No EtOH use. Reports spinal fusion from extensive lifting. This was told to her by a chiropractor ~30 yrs ago. Patient hesitant to start PO or infusion therapy due to prior intolerance of methotrexate, prior familial experiences, and concerns regarding side effects. RHEUMATOLOGIC: (+) Hair Loss (+) Hair Thinning (+) Eye Redness (+) Eye Pain (+) Oral Ulcers (-) Nasal Ulcers (-) Genital Ulcers (-) Dry Eyes (+) Dry Mouth (-) Skin Rash (-) Psoriasis (-) Photosensitivity (-) Pleurisy (-) History of Pleural Effusion (-) History of Pericarditis / Pericardial effusion (-) Urethritis/Urethral Discharge (-) Colitis/IBD (-) Enthesitis (+) Back Pain (-) Raynaud's (-) Seizures (-) Stroke/TIA (+) Venous Thrombosis - this was associated w OCP, no further instances since OCP cessation (-) History of Hepatitis B or C or TB Total Pregnancies ( 5 ) : Miscarriage( ),( ),Live ( 2 ) Medical History[1] Surgical History[2] Family History[3] Social History[4] Current Medications[5] Review of Systems Constitutional: Negative for chills, fatigue, fever and unexpected weight change. HENT: Negative for mouth sores and trouble swallowing. Musculoskeletal: Positive for arthralgias and back pain. Neurological: Negative for weakness. All other systems reviewed and are negative. PMH, PSH, Family History and Medication History were reviewed personally with the patient. Objective There were no vitals taken for this visit. Physical Exam Vitals reviewed. Constitutional: Appearance: Normal appearance. Cardiovascular: Rate and Rhythm: Normal rate and regular rhythm. Pulmonary: Effort: Pulmonary effort is normal. Breath sounds: Normal breath sounds. Abdominal: General: There is no distension. Palpations: Abdomen is soft. There is no hepatomegaly, splenomegaly or mass. Tenderness: There is no abdominal tenderness. Musculoskeletal: Right shoulder: Tenderness present. No swelling, deformity, bony tenderness or crepitus. Normal range of motion. Normal strength. Left shoulder: Normal. Cervical back: Normal. Thoracic back: Normal. Lumbar back: Tenderness present. No swelling, deformity or bony tenderness. Right lower leg: No edema. Left lower leg: No edema. Skin: General: Skin is warm and dry. Findings: No rash. Neurological: Mental Status: She is alert. Psychiatric: Mood and Affect: Mood normal. Behavior: Behavior normal. Thought Content: Thought content normal. Musculoskeletal: Neck: Full ROM. no swelling.No tenderness, Shoulder: Bilateral full active ROM.no swelling. No tenderness, Elbows: Full ROM. No swelling. Tenderness to R shoulder and pain w motion. Wrists: Full ROM. no swelling, No tenderness, Hands: Full ROM. Tenderness of MCP and PIP joints. Hips: Normal ROM. No swelling, No tenderness, Knees: Normal ROM, no swelling, No tenderness, Feet: Full ROM. no swelling, No tenderness, Ankles: Normal ROM,no swelling, No tenderness, Spine: No spinous process tenderness. L sacroiliac joint tenderness. Data Reviewed and Summarized Labs: Imaging/Testing: Assessment & Plan Still's disease of adult (HCC) Orders: LUPUS ANTICOAGULANT EVALUATION WITH REFLEX (BKR QUEST); Future Direct Calin, Poly; Future ANALYZER MARVA, IFA WITH REFLEX TITER/PATTERN, SYSTEMIC AUTOIMMUNE PANEL 1 QUEST; Future Hepatitis B Core Antibody, Total; Future Hepatitis B surface ant (more content not included)... Normal [facility] Breast imaging reportOrdered By: Leatha Marcial on 12-04-2024 Study report [facility] [address] [place] [address] SCRN MAMM (CAD)W/NIKIA BILAT MR#: [id number] Acct: [id number] Name: JUNIOR FLORIAN Rep #: [id number] : 1970 F 54 From: Gwyn Marcial DO PCP: LITTLE MARINELLI Status: REG CLI Study:SCRN MAMM (CAD)W/NIKIA BILAT Date of Exa m: 12/01/24 Exam# [id number] Ordering Dr: Nusrat Hobson NP PARADI OPERATOR-C EXAM: SCRN MAMM (CAD)W/NIKIA BILAT DATE: 12/01/2024 CLINICAL HISTORY: F, Age 54 y/o , SCREENING BREAST CANCER RISK ASSESSMENT: Has not been calculated TECHNIQUE: Bilateral screening digital breast tomosynthesis with 2D and 3D images. Computeraided detection. COMPARISON: Prior exam(s) dated 11/29/2023 and 11/23/2022. FINDINGS: TISSUE DENSITY: The breast tissue is composed of scattered area of fibroglandular density. Bilateral Breast Mammographic Findings: No significant masses, calcifications or other abnormalities are identified. Benign round microcalcifications are seen in both breasts. A stable lobulated nodular density is seen laterally in the left breast. BI/SCRN MAMM (CAD)W/NIKIA BILAT IMPRESSION: OVERALL FINAL ASSESSMENT: BIRADS 2 BENIGN FINDING RECOMMENDATION: Routine annual follow-up in 1 Year A letter with findings and recommendations will be mailed to the patient. Reading Location: [id number] CC: PARADI OPERATORClaire Hobson; LITTLE MARINELLI ~ Channel Opener: Signed [facility] SCRN MAMM (CAD)W/NIKIA BILATo n 12-01-2024 SCRN MAMM (CAD)W/NIKIA BILAT [facility] [address] [place], [place] [id number] SCRN MAMM (CAD)W/NIKIA BILAT MR#: [id number] Acct: [id number] Name: JUNIOR FLORIAN Rep #: [id number] : 1970 F 54 From: Leatha Gauthier PCP: LITTLE MARINELLI Status: REG CLI Study: SCRN MAMM (CAD)W/NIKIA BILAT Date of Exam: 09/26 Exam# [id number] Ordering Dr: Nusrat Hobson PARADI OPERATOR PARADI OPERATOR- C EXAM: SCRN MAMM (CAD)W/NIKIA BILAT DATE: 12/01/2024 CLINICAL HISTORY: F, Age 54 y/o , SCREENING BREAST CANCER RISK ASSESSMENT: Has not been calculated TECHNIQUE: Bilateral screening digital breast tomosynthesis with 2D and 3D images. Computer aided detection. COMPARISON: Prior exam(s) dated 11/29/2023 and 11/23/2022. FINDINGS: TISSUE DENSITY: The breast tissue is composed of scattered area of fibroglandular density. Bilateral Breast Mammographic Findings: No significant masses, calcifications or other abnormalities are identified. Benign round microcalcifications are seen in both breasts. A stable lobulated nodular density is seen laterally in the left breast. BI/SCRN MAMM (CAD)W/NIKIA BILAT IMPRESSION: OVERALL FINAL ASSESSMENT: BIRADS 2 BENIGN FINDING RECOMMENDATION: Routine annual follow-up in 1 Year A letter with findings and recommendations will be mailed to the patient. Reading Location: [id number] CC: JAMES MARINELLI Channel Opener: Manoj Moreno [facility] Ahmet 11-22-2024 BURAK Telephone (OBGYWM) JUNIOR FLORIAN ([id number]) 1970 F Date Time Provider Department 11/22/24 NUSRAT HOBSON During your visit today, we recorded the following information about you: Jolie Arcos LPN 11/22/2024 4:54 PM Signed Faxed second attempt to [facility] Rx mammogram order to [phone]. Jolie Arcos LPN Allergies As of Date: 11/22/2024 Noted Allergy Reaction BEE VENOM PROTEIN (HONEY BEE) 09/15/2017 7 - Swelling Date Reviewed: 10/30/2024 Reviewed by: Jolie Arcos LPN - Fully Assessed Reason for Visit: Orders [681] Prescriptions as of 11/22/2024 - buPROPion XL (WELLBUTRIN XL) 300 mg 24 hr tablet - Omeprazole Magnesium (PRILOSEC OTC) 20 mg tablet Take by mouth. - fish,bora,flax oils-om3,6,9no1 (OMEGA 3-6-9) 1,200 mg cap Take by mouth. - Multivitamin capsule Take 1 capsule by mouth once daily. - Ascorbic Acid (VITAMIN C) 1,000 mg tablet Take 1,000 mg by mouth once daily. 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] 06/05/2011 Obesity (BMI 30.0-34.9) [E66.811] Still's disease (HCC) [M08.20] Family history of malignant neoplasm of colon [*10/28/2023 Diagnosed: 10/28/2023 Gastroesophageal reflux disease [K21.9] 10/28/2023 Diagnosed: 10/28/2023 History of appendectomy [Z90.49] 10/28/2023 Diagnosed: 10/28/2023 Encounter Status:Closed by JOLIE ARCOS on 11/22/24 Normal [facility] BACTERIAL VAGINOSIS NAATon 0 10-30-2024 Lactobacillus crispatus+gasseri+jense narendra + Gardnerella vaginalis + Atopobium vaginae rRNA BILLY+probe Ql (Vag fld) Detected Abnormal Not detected [facility] Comment on above: Order Comment: Speci men Type: SWAB Ordering Facility: [facility] Address: [address] [place] [address] Performed By: #### B VAMP, CVTV #### [facility] CLIA [id number] [address] [place] [address] [place] C. trachomatis+N. gonorrhoea e DNA BILLY+probe Ql (Unsp spec)on 10-30-2024 C. trachomatis rRNA BILLY+probe Ql (Unsp spec) Not detected Normal Not detected [facility] Comment on above: Order Comment: Speci men Type: SWAB Ordering Facility: [facility] Address: [address] [place] [address] Performed By: #### 3 6902-5 #### [facility] CLIA [id number] [address] [place] [address] [place] N. gonorrhoeae rRNA BILLY+probe Ql (Unsp spec) Not detected Normal Not detected [facility] Comment on above: Order Comment: Speci men Type: SWAB Ordering Facility: [facility] Address: [address] [place] [address] Performed By: #### 3 6902-5 #### [facility] CLIA [id number] [address] [place] [address] [place] CLIFFORD/TRICHOMONAS NAATon 0 10-30-2024 C. glabrata RNA BILLY+probe Ql (Vag fld) Not detected Normal Not detected [facility] Comment on above: Order Comment: Speci men Type: SWAB Ordering Facility: [facility] Address: [address] [place] [address] Performed By: #### B VAMP, CVTV #### [facility] CLIA [id number] [address] [place] [address] [place] Clifford sp DNA BILLY+probe Ql (Vag fld) Not detected Normal Not detected [facility] Comment on above: Order Comment: Speci men Type: SWAB Ordering Facility: [facility] Address: [address] [place] [address] Result Comment: The Clifford species group target includes C. albicans, C. tropicalis, C. parapsilosis, and C. dubliniensis. Performed By: #### B VAMP, CVTV #### [facility] CLIA [id number] [address] [place] [address] [place] T. vaginalis DNA BILLY+probe Ql (Unsp spec) Not detected Normal Not detected [facility] Comment on above: Order Comment: Speci men Type: SWAB Ordering Facility: [facility] Address: [address] [place] [address] Performed By: #### B VAMP, CVTV #### [facility] CLIA [id number] [address] [place] [address] [place] CNOVon 10-30-2024 CNOV Office Visit (OBGYWM ) JUNIOR FLORIAN ([id number]) 1970 F Date Time Provider Department 10/30/24 4:00 PM NUSRAT HOBSON OBKILOWAllison During your visit today, we recorded the following information about you: Blood pressure Weight Height 136/88 88.5 kg 1.676 m Nusrat Hobson APRN.SEXUAL ABUSE COUNSELLOR 10/30/2024 4:54 PM Signed 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 Postmenopausal: Yes HRT use: No. Last Pap: 10/2023 normal HPV: 10/2023 negative History of abnormal pap: Yes LEEP Last mammogram: 2023 normal @ [facility] History of abnormal mammogram: No Sexually active: Yes Patient concerns for STD exposure: Yes: recent breakup OB History Gravida6 Para2 Term2 Preterm0 AB3 Living2 SAB1 IAB0 Ectopic0 Multiple0 Live Births0 FAMILY HISTORY Problem Relation Age of Onset Heart Attack Mother age 71 Colon Cancer Father dx in 60's Leukemia Sister dx age 40 No Known Problems Maternal Grandmother Heart Maternal Grandfather Cancer Paternal Grandmother Cancer Paternal Grandfather SOCIAL HISTORY Social History Tobacco Use Smoking status: Never Smokeless tobacco: Never Vaping Use Vaping status: Never Used Substance Use Topics Alcohol use: Never Drug use: Never REVIEW OF SYSTEMS Abdomen: No abdominal pain, nausea, vomiting, diarrhea, or constipation. No bloating, early satiety, indigestion, or increased flatulence. Bladder: No dysuria, gross hematuria, urinary frequency, urinary urgency, or incontinence Breast: No breast lumps, nipple d/c, overlying skin changes, redness or skin retraction Allergies and current medication updated:Yes SENSITIVE EXAM: The sensitive examination was discussed with the Patient or Patient's Authorized Branch Controller. As applicable, any other physician, advance practice provider, medical student, or other health professional student that will be observing or involved in the sensitive examination for educational or training purposes was discussed with the Patient or Authorized Branch Controller. The Patient or Authorized Branch Controller has agreed to proceed with the sensitive examination. (Sensitive examination includes inspection and/or palpation of the breasts, pelvis, prostate and anorectal regions). EXAM: BP 136/88 Ht 5' 5.984 (1.68m) Wt 195 lb (88.5kg) LMP 02/04/2017 BMI 31.49 kg/(m2). GENERAL: pleasant, female in no apparent distress HEENT: Normocephalic, atraumatic, mucus membranes moist, and no lesions DERMATOLOGY: Normal, without lesions, non-icteric, and non-hirsute BREAST: soft, non-tender, symmetric, no dominant mass, normal nipple-areolar complex, no lymphadenopathy, and no nipple discharge CHEST: Normal inspiratory effort ABDOMEN: soft, non-tender, and no masses PELVIC: external genitalia normal, normal Bartholin's glands, urethra, [place]'s glands, no vulvar lesions, no cervical lesions, physiologic discharge present, normal appearing perineal body and perianal region BIMANUAL: uterus normal size, shape and consistency, no adnexal masses, and non-tender RECTOVAGINAL: deferred. NEURO: alert and oriented x3,exam grossly non-focal EXTREMITIES: normal ASSESSMENT/PLAN: 1) Health maintenance: Pap/HPV up to date. Mammogram ordered for [facility] Nutrition, exercise and routine health maintenance exams reviewed. Calcium/Vitamin D supplementation information provided. Colon cancer screening: up to date with screening 2) Follow up one year or sooner as needed 3) Full STD panel ordered Nusrat Hobson APRN.SEXUAL ABUSE COUNSELLOR Allergies As of Date: 10/30/2024 Noted Allergy Reaction BEE VENOM PROTEIN (HONEY BEE) 09/15/2017 7 - Swelling Date Reviewed: 10/30/2024 Reviewed by: Jolie Arcos LPN - Fully Assessed Reason for Visit: Well Woman [1463] Primary Visit Diagnosis:Encounter for gynecological examination (general) (routine) without abnormal findings [Z01.419] Other Visit Diagnoses:Encounter for screening mammogram for breast cancer [Z12.31] Screen for STD (sexually transmitted disease) [Z11.3] Order(s):CLIFFORD/TRICH OMONAS NAAT [SQCVTV] Order #: [id number]. #:[id number] BACTERIAL VAGINOSIS NAAT [SQBVAMP] Order #: [id number]. #:[id number] GONORRHEA/CHLAMYDIA NAAT [SQGCCT] Order #: [id number]. #:[id number] SYPHILIS TREPONEMAL W/REFLEX [SQSYPHTX] Order #: [id number] FUTURE HIV 1/2 COMBO WITH REFLEX TO DIFFERENTIATION [SQHIV12] Order #: [id number] FUTURE HEPATITIS C ANTIBODY IA WITH CONFIRMATION [LBQQZU7F] Order #: [id number] FUTURE HEPATITIS B SURFACE ANTIGEN [SQHBSAG] Order #: [id number] FUTURE Prescriptions as of 10/30/2024 - buPROPion XL (WELLBUTRIN XL) 300 mg 24 hr tablet - Omeprazole Magnesium (PRILOSEC OTC) 20 mg tablet Take by mouth. - fish,bora,flax oils-om3,6,9no1 (OMEGA 3-6-9) 1,200 mg cap Take by mouth. - (more content not included)... Normal [facility] HBV surface Ag Ser Qlon 10-02 HBV surface Ag Ql (S) Negative Normal Negative [facility] Comment on above: Order Comment: Speci men Type: BLOOD SPECIMEN Ordering Facility: [facility] Address: [address] [place] [address] Performed By: #### 7 3752-8, 5195-3, 05369-0 #### [facility] CLIA [id number] [address] [place] [address] [place] HCV Ab Ql (S)on 10-30-2024 Interpretation and review of laboratory results Normal [facility] HCV Ab Ser Qlon 10-30-2024 HCV Ab Ql (S) Negative Normal Negative [facility] Comment on above: Order Comment: Speci men Type: BLOOD SPECIMEN Ordering Facility: [facility] Address: [address] [place] [address] Result Comment: The result suggests no evidence of infection with Hepatitis C virus. Should recent infection be suspected, repeat testing may be considered 4-6 weeks after this draw. Performed By: #### 1 6128-1 #### [facility] CLIA [id number] [address] [place] [address] [place] HEPATITIS C ANTIBODY IA WITH CONFIRMATIONon 10-30-2024 HCV Ab Ql (S) Negative Negative [facility] Comment on above: The result suggests no evidence of infection with Hepatitis C virus. Should recent infection be suspected, repeat testing may be considered 4-6 weeks after this draw. HIV 1+2 Ab IA Qlon HIV 1 and 2 Ab IA.rapid Nom (S/P/Bld) Normal [facility] Comment on above: Order Comment: Speci men Type: BLOOD SPECIMEN Ordering Facility: [facility] Address: [address] [place] [address] Result Comment: Test not indicated. Performed By: #### 7 3752-8, 5195-3, 92160-0 #### [facility] CLIA [id number] [address] [place] [address] [place] HIV 1+2 Ab+HIV1 p24 Ag IA Ql Non-Reactive Normal Nonreactive [facility] Comment on above: Order Comment: Speci men Type: BLOOD SPECIMEN Ordering Facility: [facility] Address: [address] [place] [address] Performed By: #### 7 3752-8, 5195-3, 60015-9 #### [facility] CLIA [id number] [address] [place] [address] [place] HIV immunoassay testing algorithm interpretation (S/P/Bld) [Interp] Normal [facility] Comment on above: Order Comment: Speci men Type: BLOOD SPECIMEN Ordering Facility: [facility] Address: [address] [place] [address] Result Comment: No e vidence of HIV-1 or HIV-2 infection. Should recent infection be suspected, repeat testing may be considered 2-3 weeks after this draw. [place] Rev. Code 3701.243(E): This information has been disclosed to you from confidential records protected from disclosure by state law. ???You shall make no further disclosure of this information without the specific, written, and informed release of the individual to whom it pertains or as otherwise permitted by state law. A general authorization for the release of medical or other information is not sufficient for the purpose of the release of HIV test results or diagnoses. Performed By: #### 7 3752-8, 5195-3, 29057-1 #### [facility] CLIA [id number] [address] [place] [address] [place] Reagin and Treponema pallidu m IgG and IgM [Interp]on 10-30-2024 T. pallidum IgG+IgM IA Ql (S) Non-Reactive Normal Nonreactive [facility] Comment on above: Order Comment: Speci men Type: BLOOD SPECIMEN Ordering Facility: [facility] Address: [address] [place] [address] Performed By: #### 7 3752-8, 5195-3, 22410-3 #### [facility] CLIA [id number] [address] [place] [address] [place] Reagin+T pallidum IgG+IgM Se rPl-Impon 10-30-2024 Reagin and Treponema pallidum IgG and IgM [Interp] Cannot exclude recent Treponemal infection if specimen collected within 7-10 days after appearance of suspect lesions or 2-3 weeks after an exposure. Clinical correlation is required. Normal [facility] Comment on above: Order Comment: Speci men Type: BLOOD SPECIMEN Ordering Facility: [facility] Address: [address] [place] [address] Performed By: #### 7 3752-8, 5195-3, 49424-2 #### [facility] CLIA [id number] [address] [place] [address] [place] 36on 09-25-2024 36 Called patient made apt [facility] 36 Left voice message f or pt to call to sk new pt appt. [facility] 36on 06-15-2024 36 Spoke w/ pt; explain ed [facility] office currently has no further openings in 2024 schedule in computer is not open to new pt appts at this time, however we can place pt on cancellation list. Pt states agreement, placed on cx list. [facility] 36on 05-15-2024 36 Name of Caller: Ray thompson Contact Reason for Appointment: Junior is requesting a call back to schedule a new patient appointment with 05/04/2024 referral for Dx: RA/Hx stills/+ MARVA. Please contact Junior for scheduling. Thank you. Office Name: [facility] Medication Refills need, if any: N/A Medication Name: N/A [facility] Basophil percentageon 2021 Chloride [Moles/Vol] 104 mmol/L 98-107 [facility] Work Phone: Glucose [Mass/Vol] 107 mg/dL 74-106 [facility] Work Phone: Comment on above: Slight Lipemia, Resu lt may be falsely increased.Fasting Glucose result from 100 to 125 mg/dL suggests IMPAIRED HOMEOSTASIS per A.D.A. criteria. Potassium [Moles/Vol] 3.6 mmol/L 3.5-5.1 [facility] Work Phone: Comment on above: Slight Lipemia, Resu lt may be falsely increased. Sodium [Moles/Vol] 138 mmol/L 136-145 [facility] Work Phone: [phone] WBC (Bld) [#/Vol] 8.5 10*3/uL 4.4-11.0 [facility] Work Phone: [phone] Blood erythrocytes count (nu mber/volume)on 07-17-2022 RBC (Bld) [#/Vol] 4.44 10*6/uL 4.2-5.[address] [facility] Work Phone: [phone] Blood hemoglobin measurement (mass/volume)on 07-17-2022 Hemoglobin (Bld) [Mass/Vol] 14.4 g/dL 12.0-15.0 [facility] Work Phone: Blood platelet mean volumeon 07-17-2022 Platelet mean volume (Bld) [Entitic vol] 9.8 fL 6.2-12.0 [facility] Work Phone: [phone] Determination of erythrocyte mean corpuscular volume (MCV)on 07-17-2022 MCV (RBC) [Entitic vol] 89.2 fL 81-99 [facility] Work Phone: [phone] Hematocrit Auto (Bld) [Volum e fraction]on 07-17-2022 Hematocrit (Bld) [Volume fraction] 39.6 % 37-47 [facility] Work Phone: [phone] Laboratory - Chemistry and C hemistry - challengeon 07-17-2022 CO2 [Moles/Vol] 27.0 mmol/L 21.0-32.0 [facility] Work Phone: Comment on above: Slight Lipemia, Resu lt may be falsely increased. Urea nitrogen/Creatinine [Mass ratio] 15.7 mg/mg 10-20 [facility] Work Phone: Laboratory - Hematology and Cell countson 07-17-2022 Erythrocyte distribution width (RBC) [Entitic vol] 39.3 fL 35.1-43.9 [facility] Work Phone: [phone] Erythrocyte distribution width (RBC) [Ratio] 12.1 % 11.6-14.6 [facility] Work Phone: [phone] MCH (RBC) [Entitic mass] 32.4 pg 27.0-32.0 [facility] Work Phone: [phone] MCHC Auto (RBC) [Mass/Vol]on 07-17-2022 MCHC (RBC) [Mass/Vol] 36.4 g/dL 32-36 [facility] Work Phone: No Panel Informationon 07-17 Estimated GFR (MDRD) Amer 86 mL/min >60 [facility] Work Phone: Comment on above: GFR Calc Estimated GFR (MDRD) Non-Af Amer 71 mL/min >60 [facility] Work Phone: Comment on above: Non- GFR Calc Thyroid Stimulating Hormone (TSH) 1.63 uIU/mL 0.358-3.74 [facility] Work Phone: Vitamin D 25-Hydroxy 56.7 ng/mL [facility] Work Phone: Comment on above: Vitamin D 25(OH) Sta tus Range Deficiency <20 ng/mL (50nmol/L) Insufficiency 20 - 30 ng/mL (50 - 75 nmol/L) Sufficiency 30 - 100 ng/mL (75 - 250 nmol/L) Toxicity >100 ng/mL (>250 nmol/L) Platelets bldon 07-17-2022 Platelets (Bld) [#/Vol] 265 10*3/uL 150-450 [facility] Work Phone: Serum or plasma calcium nusrat urement (mass/volume)on 07-17-2022 Calcium [Mass/Vol] 9.0 mg/dL 8.5-10.1 [facility] Work Phone: Comment on above: Slight Lipemia, Resu lt may be falsely increased. Serum or plasma cortisol cindy surement (mass/volume)on 07-17-2022 Cortisol [Mass/Vol] 3.50 ug/dL 3.44-22.[address] [facility] Work Phone: Comment on above: Adult (AM) 5.27 - 22 .45 ug/dL Adult (PM) 3.44 - 16.76 ug/dLPlease note revised CORTISOL reference range effective 2019. Serum or plasma creatinine m easurement (mass/volume)on 07-17-2022 Creatinine [Mass/Vol] 0.89 mg/dL 0.55-1.02 [facility] Work Phone: Comment on above: Slight Lipemia, Resu lt may be falsely increased.The validity of the calculated GFR & GFRAA in patients over 70 years has not been determined. Clinical correlation is essential. Serum or plasma urea nitroge n measurement (mass/volume)on 07-17-2022 Urea nitrogen [Mass/Vol] 14 mg/dL 7-18 [facility] Work Phone: Comment on above: Slight Lipemia, Resu lt may be falsely increased. Thin prep Papanicolaou smear with manual screeningon 07-17-2022 Thin prep Papanicolaou smear with manual screening 7 -15 [facility] Work Phone: Absolute lymphocyte counton 03-30-2022 Lymphocytes Auto (Unsp spec) [#/Vol] 3.46 10*3/uL 0.83-4.51 [facility] Work Phone: Basophil percentageon 2021 Basophil percentage 0 SEEN /hpf 0-5 [facility] Work Phone: Basophils/100 WBC (Bld) 0.2 % 0-1 [facility] Work Phone: Bilirubin [Mass/Vol] 1.30 mg/dL 0.20-1.00 [facility] Work Phone: Comment on above: For patients on eltr ombopag therapy, use of Dimension Fred TBIL is not recommended. Chloride [Moles/Vol] 100 mmol/L 98-107 [facility] Work Phone: Eosinophils/100 WBC (Bld) 0.5 % 0-5 [facility] Work Phone: Glucose [Mass/Vol] 92 mg/dL 74-106 [facility] Work Phone: Neutrophils (Bld) [#/Vol] 12.3 10*3/uL 2.0-7.7 [facility] Work Phone: Neutrophils/100 WBC (Bld) 71.3 % 47-70 [facility] Work Phone: Potassium [Moles/Vol] 3.4 mmol/L 3.5-5.1 [facility] Work Phone: Protein [Mass/Vol] 8.0 g/dL 6.4-8.2 [facility] Work Phone: Sodium [Moles/Vol] 134 mmol/L 136-145 [facility] Work Phone: WBC (Bld) [#/Vol] 17.3 10*3/uL 4.4-11.[address] [facility] Work Phone: Bilirubin Test strip Ql (U)o n 03-30-2022 Bilirubin Ql (U) Negative Negative [facility] Work Phone: Blood erythrocytes count (nu mber/volume)on 03-30-2022 RBC (Bld) [#/Vol] 4.25 10*6/uL 4.2-5.[address] [facility] Work Phone: Blood hemoglobin measurement (mass/volume)on 03-30-2022 Hemoglobin (Bld) [Mass/Vol] 13.1 g/dL 12.0-15.0 [facility] Work Phone: Blood lymphocytes/100 leukoc yteson 03-30-2022 Lymphocytes/100 WBC (Bld) 20.0 % 19-41 [facility] Work Phone: Blood monocytes/100 leukocyt eson 03-30-2022 Monocytes/100 WBC (Bld) 7.6 % 0-10 [facility] Work Phone: [phone] Blood platelet mean volumeon 03-30-2022 Platelet mean volume (Bld) [Entitic vol] 9.4 fL 6.2-12.0 [facility] Work Phone: [phone] Determination of erythrocyte mean corpuscular volume (MCV)on 03-30-2022 MCV (RBC) [Entitic vol] 89.9 fL 81-99 [facility] Work Phone: [phone] Hematocrit Auto (Bld) [Volum e fraction]on 03-30-2022 Hematocrit (Bld) [Volume fraction] 38.2 % 37-47 [facility] Work Phone: [phone] Ketones Test strip Ql (U)on 03-30-2022 Ketones Ql (U) Negative Negative [facility] Work Phone: Laboratory - Chemistry and C hemistry - challengeon 03-30-2022 ALP [Catalytic activity/Vol] 50 U/L 45-117 [facility] Work Phone: [phone] ALT [Catalytic activity/Vol] 66 U/L 13-56 [facility] Work Phone: [phone] CO2 [Moles/Vol] 26.0 mmol/L 21.0-32.0 [facility] Work Phone: [phone] Globulin (S) [Mass/Vol] 4.2 g/dL 2.2-4.2 [facility] Work Phone: [phone] Urea nitrogen/Creatinine [Mass ratio] 10.8 mg/mg 10-20 [facility] Work Phone: [phone] Laboratory - Hematology and Cell countson 03-30-2022 Erythrocyte distribution width (RBC) [Entitic vol] 41.1 fL 35.1-43.9 [facility] Work Phone: [phone] Erythrocyte distribution width (RBC) [Ratio] 12.5 % 11.6-14.6 [facility] Work Phone: [phone] Immature granulocytes/100 WBC (Bld) 0.400 % 0.0-0.9 [facility] Work Phone: [phone] Comment on above: IG% - Immature Granu locytes (promyelocytes, myelocytes and metamyelocytes) > 1% indicates that a LEFT SHIFT is Present. MCH (RBC) [Entitic mass] 30.8 pg 27.0-32.0 [facility] Work Phone: [phone] Nucleated RBC/100 WBC (Bld) [Ratio] 0 % 0-5 [facility] Work Phone: [phone] MCHC Auto (RBC) [Mass/Vol]on 03-30-2022 MCHC (RBC) [Mass/Vol] 34.3 g/dL 32-36 [facility] Work Phone: [phone] Mucus LM Ql (Urine sed)on Mucus Ql (Urine sed) 0 SEEN /hpf [facility] Work Phone: [phone] Test strip Ql (U)on 03-30-2022 Nitrite Ql (U) Negative Negative [facility] Work Phone: No Panel Informationon 03-30 Estimated Creatinine Clearance Calc 67.72 ml/min [facility] Work Phone: [phone] Estimated GFR (MDRD) Amer 82 mL/min >60 [facility] Work Phone: Comment on above: GFR Calc Estimated GFR (MDRD) Non-Af Amer 68 mL/min >60 [facility] Work Phone: [phone] Comment on above: Non- GFR Calc Platelets bldon 03-30-2022 Platelets (Bld) [#/Vol] 221 10*3/uL 150-450 [facility] Work Phone: [phone] Protein Test strip Ql (U)on 03-30-2022 Protein Ql (U) Negative Negative [facility] Work Phone: [phone] Serum or plasma albumin nusrat urement (mass/volume)on 03-30-2022 Albumin [Mass/Vol] 3.8 g/dL 3.2-5.0 [facility] Work Phone: [phone] Serum or plasma albumin/glob ulin mass ratioon 03-30-2022 Albumin/Globulin [Mass ratio] 0.9 {ratio} 0.9-2.4 [facility] Work Phone: [phone] Serum or plasma calcium nusrat urement (mass/volume)on 03-30-2022 Calcium [Mass/Vol] 8.8 mg/dL 8.5-10.1 [facility] Work Phone: [phone] Serum or plasma creatinine m easurement (mass/volume)on 03-30-2022 Creatinine [Mass/Vol] 0.92 mg/dL 0.55-1.02 [facility] Work Phone: Comment on above: The validity of the calculated GFR & GFRAA in patients over 70 years has not been determined. Clinical correlation is essential. Serum or plasma urea nitroge n measurement (mass/volume)on 03-30-2022 Urea nitrogen [Mass/Vol] 10 mg/dL 7-18 [facility] Work Phone: [phone] Squamous epithelial cells de tection in urine sediment by light microscopyon 03-30-2022 Epithelial cells.squamous LM Ql (Urine sed) 0-5 SEEN /hpf 5-10 [facility] Work Phone: Thin prep Papanicolaou smear with manual screeningon 03-30-2022 Thin prep Papanicolaou smear with manual screening 28 U/L 15-37 [facility] Work Phone: [phone] Thin prep Papanicolaou smear with manual screening 8 5-15 [facility] Work Phone: [phone] Urine blood detectionon 03-03 RBC Ql (U) 25 /ul Negative [facility] Work Phone: [phone] RBC Ql (U) 0 SEEN /hpf 0-5 [facility] Work Phone: [phone] Urine clarityon 03-30-2022 Clarity (U) Clear Clear [facility] Work Phone: [phone] Urine color determinationon 03-30-2022 Color (U) Straw Yellow [facility] Work Phone: Urine glucose detectionon Glucose Ql (U) Normal mg/dl Normal [facility] Work Phone: Urine leukocyte esterase det ection by dipstickon 03-30-2022 Leukocyte esterase Test strip Ql (U) Negative Negative [facility] Work Phone: Urine pHon 03-30-2022 pH (U) 7.0 [pH] 5.0 - 8.0 [facility] Work Phone: Urine sediment bacteria coun t by microscopy (number/high power field)on 03-30-2022 Bacteria LM.HPF (Urine sed) [#/Area] 0 /[HPF] None Seen [facility] Work Phone: Urine specific gravity measu rementon 03-30-2022 Specific gravity (U) [Rel density] 1.005 1.002-1.030 [facility] Work Phone: Urobilinogen Auto test strip Ql (U)on 03-30-2022 Urobilinogen Ql (U) Normal mg/dl Normal [facility] Work Phone: Basophil percentageon 2021 Bilirubin [Mass/Vol] 0.30 mg/dL 0.20-1.00 [facility] Work Phone: Comment on above: For patients on eltr ombopag therapy, use of Dimension Fred TBIL is not recommended. Chloride [Moles/Vol] 107 mmol/L 98-107 [facility] Work Phone: Cholesterol [Mass/Vol] 160 mg/dL <200 [facility] Work Phone: Comment on above: <200 mg/dL Desirable 200-240 mg/dL Borderline >240 mg/dL High Risk Glucose [Mass/Vol] 101 mg/dL 74-106 [facility] Work Phone: Comment on above: Fasting Glucose resu lt from 100 to 125 mg/dL suggests IMPAIRED HOMEOSTASIS per A.D.A. criteria. Potassium [Moles/Vol] 4.2 mmol/L 3.5-5.1 [facility] Work Phone: Protein [Mass/Vol] 7.4 g/dL 6.4-8.2 [facility] Work Phone: Sodium [Moles/Vol] 136 mmol/L 136-145 [facility] Work Phone: Triglyceride [Mass/Vol] 186 mg/dL [facility] Work Phone: Comment on above: The drugs N-Acetylcy steine and Metamizole may falsely depress this assay.Serum Triglycerides Reference Interval Normal <150 mg/dL Borderline high 150 - 199 mg/dL High 200 - 499 mg/dL Very High > or = 500 mg/dL Laboratory - Chemistry and C hemistry - challengeon 11-10-2021 ALP [Catalytic activity/Vol] 71 U/L 45-117 [facility] Work Phone: ALT [Catalytic activity/Vol] 70 U/L 13-56 [facility] Work Phone: CO2 [Moles/Vol] 25.0 mmol/L 21.0-32.0 [facility] Work Phone: Globulin (S) [Mass/Vol] 3.9 g/dL 2.2-4.2 [facility] Work Phone: Urea nitrogen/Creatinine [Mass ratio] 17.7 mg/mg 10-20 [facility] Work Phone: No Panel Informationon 11-10 Estimated GFR (MDRD) Amer 91 mL/min >60 [facility] Work Phone: Comment on above: GFR Calc Estimated GFR (MDRD) Non-Af Amer 75 mL/min >60 [facility] Work Phone: Comment on above: Non- GFR Calc Serum or plasma albumin nusrat urement (mass/volume)on 11-10-2021 Albumin [Mass/Vol] 3.5 g/dL 3.2-5.0 [facility] Work Phone: Serum or plasma albumin/glob ulin mass ratioon 11-10-2021 Albumin/Globulin [Mass ratio] 0.9 {ratio} 0.9-2.4 [facility] Work Phone: Serum or plasma calcium nusrat urement (mass/volume)on 11-10-2021 Calcium [Mass/Vol] 8.8 mg/dL 8.5-10.1 [facility] Work Phone: [phone] Serum or plasma cholesterol in HDL measurement (mass/volume)on 11-10-2021 Cholesterol in HDL [Mass/Vol] 29 mg/dL [facility] Work Phone: Comment on above: The drugs N-Acetylcy steine and Metamizole may falsely depress this assay. Reference Range HDL <40 mg/dL Low HDL Cholesterol HDL >or= 60 mg/dL High HDL Cholesterol Serum or plasma cholesterol in VLDL measurement (mass/volume)on 11-10-2021 Cholesterol in VLDL [Mass/Vol] 37 mg/dL 5-40 [facility] Work Phone: [phone] Serum or plasma creatinine m easurement (mass/volume)on 11-10-2021 Creatinine [Mass/Vol] 0.85 mg/dL 0.55-1.02 [facility] Work Phone: Comment on above: The validity of the calculated GFR & GFRAA in patients over 70 years has not been determined. Clinical correlation is essential. Serum or plasma low density lipoprotein (LDL) cholesterol measurement (mass/volume)on 11-10-2021 Cholesterol in LDL [Mass/Vol] 94 mg/dL 0-130 [facility] Work Phone: [phone] Serum or plasma urea nitroge n measurement (mass/volume)on 11-10-2021 Urea nitrogen [Mass/Vol] 15 mg/dL 7-18 [facility] Work Phone: [phone] Thin prep Papanicolaou smear with manual screeningon 11-10-2021 Thin prep Papanicolaou smear with manual screening 42 U/L 15-37 [facility] Work Phone: [phone] Thin prep Papanicolaou smear with manual screening 4 5-15 [facility] Work Phone: [phone] Cervical or vagninal specime n microscopic examination by cytology stain (reported ason 10-23-2021 Cytology report Cyto stain Doc (Cvx/Vag) Comment [facility] Work Phone: Comment on above: The Pap smear is a s creening test designed to aid in thedetection of premalignant and malignant conditions of theuterine cervix. It is not a diagnostic procedure andshould not be used as the sole means of detecting cervicalcancer. Both false-positive and false-negative reports dooccur. Detection in cervical specim en of any of human papilloma virus (HPV) 16, 18, 31, 33,on 10-23-2021 HPV 16+18+31+33+35+39+45+51 +52+56+58+59+66+68 DNA Probe+sig amp Ql (Cvx) Negative Negative [facility] Work Phone: Comment on above: This nucleic acid am plification test detects fourteen high-risk HPV types (16,18,31,33,35,39,45,51,52,56,58,59,66,68)without differentiation.Performed at: [facility] [id number] Director: Bhumika Sinha MD, Phone: [phone] at: =[facility] [id number] Director: Bhumika Sinha MD, Phone: [phone] Laboratory - Cytologyon 10-01 Lead Technologist In Cytogenetics Cyto stain Nom (Cvx/Vag) [ID] Comment [facility] Work Phone: Comment on above: Zulema Salgado, Cyto technologist (ASCP) Laboratory - Miscellaneous t estson 10-23-2021 Service comment (Unsp spec) [Interp] Comment [facility] Work Phone: Comment on above: This liquid based Th inPrep(R) pap test was screened withthe use of an image guided system. Service comment (Unsp spec) [Interp] . [facility] Work Phone: [phone] No Panel Informationon 03-24 -2022 Pathology report final diagnosis Narrative Comment [facility] Work Phone: Comment on above: NEGATIVE FOR INTRAEP ITHELIAL LESION OR MALIGNANCY. Absolute lymphocyte counton 07-30-2021 Lymphocytes Auto (Unsp spec) [#/Vol] 2.74 10*3/uL 0.83-4.51 [facility] Work Phone: Basophil percentageon 2020 Bilirubin [Mass/Vol] 0.70 mg/dL 0.20-1.00 [facility] Work Phone: Comment on above: For patients on eltr ombopag therapy, use of Dimension Fred TBIL is not recommended. Chloride [Moles/Vol] 102 mmol/L 98-107 [facility] Work Phone: Eosinophils/100 WBC (Bld) 4.0 % 0-5 [facility] Work Phone: Glucose [Mass/Vol] 88 mg/dL 74-106 [facility] Work Phone: Comment on above: Please note revised GLUCOSE reference range effective 2017. Neutrophils (Bld) [#/Vol] 4.0 10*3/uL 2.0-7.7 [facility] Work Phone: Potassium [Moles/Vol] 3.7 mmol/L 3.5-5.1 [facility] Work Phone: Protein [Mass/Vol] 7.8 g/dL 6.4-8.2 [facility] Work Phone: Sodium [Moles/Vol] 138 mmol/L 136-145 [facility] Work Phone: WBC (Bld) [#/Vol] 7.7 10*3/uL 4.4-11.0 [facility] Work Phone: Blood erythrocytes count (nu mber/volume)on 07-30-2021 RBC (Bld) [#/Vol] 4.66 10*6/uL 4.2-5.[address] [facility] Work Phone: Blood hemoglobin measurement (mass/volume)on 07-30-2021 Hemoglobin (Bld) [Mass/Vol] 14.3 g/dL 12.0-15.0 [facility] Work Phone: [phone] Blood lymphocytes/100 leukoc yteson 07-30-2021 Lymphocytes/100 WBC (Bld) 35.5 % 19-41 [facility] Work Phone: [phone] Blood monocytes/100 leukocyt eson 07-30-2021 Monocytes/100 WBC (Bld) 7.9 % 0-10 [facility] Work Phone: [phone] Blood platelet mean volumeon 07-30-2021 Platelet mean volume (Bld) [Entitic vol] 9.7 fL 6.2-12.0 [facility] Work Phone: [phone] Determination of erythrocyte mean corpuscular volume (MCV)on 07-30-2021 MCV (RBC) [Entitic vol] 88.8 fL 81-99 [facility] Work Phone: [phone] Erythrocyte sedimentation ra neli 07-30-2021 ESR (Bld) [Velocity] 7 mm/h 0-30 [facility] Work Phone: Hematocrit Auto (Bld) [Volum e fraction]on 07-30-2021 Hematocrit (Bld) [Volume fraction] 41.4 % 37-47 [facility] Work Phone: [phone] Iron measurement (mass/mass) on 07-30-2021 Iron (Unsp spec) [Mass/Mass] 102 ug/dL 50-170 [facility] Work Phone: [phone] Laboratory - Chemistry and C hemistry - challengeon 07-30-2021 ALP [Catalytic activity/Vol] 58 U/L 45-117 [facility] Work Phone: [phone] ALT [Catalytic activity/Vol] 70 U/L 13-56 [facility] Work Phone: [phone] CO2 [Moles/Vol] 28.0 mmol/L 21.0-32.0 [facility] Work Phone: [phone] Cobalamin (Vitamin B12) [Mass/Vol] 1705 pg/mL 211-911 [facility] Work Phone: Globulin (S) [Mass/Vol] 4.0 g/dL 2.2-4.2 [facility] Work Phone: [phone] Urea nitrogen/Creatinine [Mass ratio] 16.4 mg/mg 10-20 [facility] Work Phone: [phone] Laboratory - Hematology and Cell countson 07-30-2021 Basophils/100 WBC (Unsp spec) 0.5 % 0-1 [facility] Work Phone: [phone] Erythrocyte distribution width (RBC) [Entitic vol] 39.0 fL 35.1-43.9 [facility] Work Phone: [phone] Erythrocyte distribution width (RBC) [Ratio] 12.1 % 11.6-14.6 [facility] Work Phone: [phone] Immature granulocytes/100 WBC (Bld) 0.400 % 0.0-0.9 [facility] Work Phone: [phone] Comment on above: IG% - Immature Granu locytes (promyelocytes, myelocytes and metamyelocytes) > 1% indicates that a LEFT SHIFT is Present. MCH (RBC) [Entitic mass] 30.7 pg 27.0-32.0 [facility] Work Phone: [phone] Neutrophils/100 WBC (Bld) 51.7 % 47-70 [facility] Work Phone: [phone] Nucleated RBC/100 WBC (Bld) [Ratio] 0 % 0-5 [facility] Work Phone: [phone] MCHC Auto (RBC) [Mass/Vol]on 07-30-2021 MCHC (RBC) [Mass/Vol] 34.5 g/dL 32-36 [facility] Work [facility]: [phone] No Panel Informationon 07-30 Estimated GFR (MDRD) Amer 108 mL/min >60 [facility] Work Phone: [phone] Comment on above: GFR Calc Estimated GFR (MDRD) Non-Af Amer 89 mL/min >60 [facility] Work Phone: Comment on above: Non- GFR Calc Thyroid Stimulating Hormone (TSH) 2.53 uIU/mL 0.358-3.74 [facility] Work Phone: Vitamin D 25-Hydroxy 61.4 ng/mL [facility] Work Phone: Comment on above: Vitamin D 25(OH) Sta tus Range Deficiency <20 ng/mL (50nmol/L) Insufficiency 20 - 30 ng/mL (50 - 75 nmol/L) Sufficiency 30 - 100 ng/mL (75 - 250 nmol/L) Toxicity >100 ng/mL (>250 nmol/L) Platelets bldon 07-30-2021 Platelets (Bld) [#/Vol] 237 10*3/uL 150-450 [facility] Work Phone: Serum or plasma C reactive p rotein measurement (mass/volume)on 07-30-2021 CRP [Mass/Vol] 7.38 mg/L 0.0-3.0 [facility] Work Phone: Comment on above: C-Reactive Protein ( CRP) provides useful information for thediagnosis, therapy and monitoring of inflammatory processesand associated diseases. For the evaluation of Relative Riskfor Cardiovascular Disease, a High Sensitivity CRP (HSCRP)should be ordered. Serum or plasma albumin nusrat urement (mass/volume)on 07-30-2021 Albumin [Mass/Vol] 3.8 g/dL 3.2-5.0 [facility] Work Phone: [phone] Serum or plasma albumin/glob ulin mass ratioon 07-30-2021 Albumin/Globulin [Mass ratio] 1.0 {ratio} 0.9-2.4 [facility] Work Phone: Serum or plasma calcium nusrat urement (mass/volume)on 07-30-2021 Calcium [Mass/Vol] 8.9 mg/dL 8.5-10.1 [facility] Work Phone: [phone] Serum or plasma creatinine m easurement (mass/volume)on 07-30-2021 Creatinine [Mass/Vol] 0.73 mg/dL 0.55-1.02 [facility] Work Phone: Comment on above: The validity of the calculated GFR & GFRAA in patients over 70 years has not been determined. Clinical correlation is essential. Serum or plasma urea nitroge n measurement (mass/volume)on 07-30-2021 Urea nitrogen [Mass/Vol] 12 mg/dL 7-18 [facility] Work Phone: Thin prep Papanicolaou smear with manual screeningon 07-30-2021 Thin prep Papanicolaou smear with manual screening 41 U/L 15-37 [facility] Work Phone: Thin prep Papanicolaou smear with manual screening 8 5-15 [facility] Work Phone: Vital Signs Date Time Vital Sign Value Performing Clinician Faci lity 04-10-2025 16:00-0400 Body temperature 98.5 [degF] LITTLE TERIMARCELO Work Phone: [facility] 04-10-2025 16:00-0400 Diastolic blood pressure 79 mm[Hg] LITTLE [employer]ARCELO Work Phone: [facility] 04-10-2025 16:00-0400 Heart rate 90 /min LITTLE [employer] Work Phone: [facility] 04-10-2025 16:00-0400 Respiratory rate 14 /min LITTLE MARINELLI Work Phone: [facility] 04-10-2025 16:00-0400 SaO2% (BldA) [Mass fraction] 95 % LITTLE [employer] Work Phone: [facility] 04-10-2025 16:00-0400 Systolic blood pressure 149 mm[Hg] LITTLE MARINELLI Work Phone: [facility] 04-10-2025 11:20-0400 Body height 167.64 cm LITTLE MARINELLI Work Phone: [facility] 04-10-2025 11:20-0400 Body mass index (BMI) [Ratio] 31.8 kg/m2 LITTLE MARINELLI Work Phone: [facility] 04-10-2025 11:20-0400 Body weight 89.58 kg LITTLE MARINELLI Work Phone: [facility] 12-28-2024 09:57-0400 Body height 168.9 cm Lashaun Sierra MD Work Phone: [facility] 12-28-2024 09:57-0400 Body mass index (BMI) [Ratio] 31.48 kg/m2 Lashaun Sierra MD Work Phone: [facility] 12-28-2024 09:57-0400 Body weight 89.81 kg Lashaun Sierra MD Work Phone: [facility] 12-28-2024 09:57-0400 Diastolic blood pressure 83 mm[Hg] Lashaun Sierra MD Work Phone: [facility] 12-28-2024 09:57-0400 Heart rate 83 /min Lashaun Sierra MD Work Phone: [facility] 12-28-2024 09:57-0400 Systolic blood pressure 125 mm[Hg] Lashaun Sierra MD Work Phone: [facility] 10-30-2024 16:02-0400 Body height 167.6 cm Nusrat Nicolas STRIPPER CUTTER MACHINE.SEXUAL ABUSE COUNSELLOR Work Phone: [facility] 10-30-2024 16:02-0400 Body mass index (BMI) [Ratio] 31.49 kg/m2 Nusrat Nicolas STRIPPER CUTTER MACHINE.SEXUAL ABUSE COUNSELLOR Work Phone: [facility] 10-30-2024 16:02-0400 Body weight 88.45 kg Nusrat Distant STRIPPER CUTTER MACHINE.SEXUAL ABUSE COUNSELLOR Work Phone: [facility] 10-30-2024 16:02-0400 Diastolic blood pressure 88 mm[Hg] Nusrat Distant STRIPPER CUTTER MACHINE.SEXUAL ABUSE COUNSELLOR Work Phone: [facility] 10-30-2024 16:02-0400 Systolic blood pressure 136 mm[Hg] Nusrat Distant STRIPPER CUTTER MACHINE.SEXUAL ABUSE COUNSELLOR Work Phone: [facility] 11-15-2023 09:50-0400 Body temperature 97.6 [degF] Dr. Vasu Powell Work Phone: [facility] 11-15-2023 09:50-0400 Diastolic blood pressure 96 mm[Hg] Dr. Vasu Powell Work Phone: [facility] 11-15-2023 09:50-0400 Heart rate 66 /min Dr. Vasu Powell Work Phone: [facility] 11-15-2023 09:50-0400 Respiratory rate 16 /min Dr. Vasu Powell Work Phone: [facility] 11-15-2023 09:50-0400 SaO2% (BldA) [Mass fraction] 100 % Dr. Vasu Powell Work Phone: [facility] 11-15-2023 09:50-0400 Systolic blood pressure 138 mm[Hg] Dr. Vasu Powell Work Phone: [facility] 11-15-2023 07:32-0400 Body height 167.[address] Vasu Powell Work Phone: [facility] 11-15-2023 07:32-0400 Body mass index (BMI) [Ratio] 30.8 kg/m2 Dr. Vasu Powell Work Phone: [facility] 11-15-2023 07:32-0400 Body weight 86.[address] Vasu Powell Work Phone: [facility] 09-23-2023 08:41-0500 Body mass index (BMI) [Ratio] 31.4 kg/m2 Dr. Vasu Powell Work Phone: [facility] 09-23-2023 08:41-0500 Body weight 88.[address] Vasu Powell Work Phone: [facility] 03-25-2023 15:26-0400 Body temperature 98.71 [degF] Cassie Praisler-Wood STRIPPER CUTTER MACHINE.SEXUAL ABUSE COUNSELLOR Work Phone: [facility] 03-25-2023 15:26-0400 Body weight 93.53 kg Cassie Praisler-Wood STRIPPER CUTTER MACHINE.SEXUAL ABUSE COUNSELLOR Work Phone: [facility] 03-25-2023 15:26-0400 Diastolic blood pressure 90 mm[Hg] Cassie Praisler-Wood STRIPPER CUTTER MACHINE.SEXUAL ABUSE COUNSELLOR Work Phone: [facility] 03-25-2023 15:26-0400 Heart rate 84 /min Cassie Praisler-Wood STRIPPER CUTTER MACHINE.SEXUAL ABUSE COUNSELLOR Work Phone: [facility] 03-25-2023 15:26-0400 Respiratory rate 18 /min Cassie Praisler-Wood STRIPPER CUTTER MACHINE.SEXUAL ABUSE COUNSELLOR Work Phone: [facility] 03-25-2023 15:26-0400 SaO2% (BldA) [Mass fraction] 97 % Cassie Praisler-Wood STRIPPER CUTTER MACHINE.SEXUAL ABUSE COUNSELLOR Work Phone: [facility] 03-25-2023 15:26-0400 Systolic blood pressure 140 mm[Hg] Cassie Praisler-Wood STRIPPER CUTTER MACHINE.SEXUAL ABUSE COUNSELLOR Work Phone: [facility] 03-31-2022 12:59-0400 Body temperature 98.2 [degF] Dr. Damian Powell Work Phone: [facility] Work Phone: 03-31-2022 12:59-0400 Diastolic blood pressure 70 mm[Hg] Dr. Damian Powell Work Phone: [facility] Work Phone: 03-31-2022 12:59-0400 Heart rate 78 /min Dr. Damian Powell Work Phone: [facility] Work Phone: 03-31-2022 12:59-0400 Respiratory rate 18 /min Dr. Damian Powell Work Phone: [facility] Work Phone: 03-31-2022 12:59-0400 SaO2% (BldA) [Mass fraction] 95 % Dr. Damian Powell Work Phone: [facility] Work Phone: 03-31-2022 12:59-0400 Systolic blood pressure 110 mm[Hg] Dr. Damian Powell Work Phone: [facility] Work Phone: 03-31-2022 03:23-0400 Inhaled oxygen flow rate 2 L/min Dr. Damian Powell Work Phone: [facility] Work Phone: 03-30-2022 23:38-0400 Body height 168.[address] Damian Powell Work Phone: [facility] Work Phone: 03-30-2022 23:38-0400 Body mass index (BMI) [Ratio] 33.7 kg/m2 Dr. Damian Powell Work Phone: [facility] Work Phone: 03-30-2022 23:38-0400 Body weight 96.[address] Damian Powell Work Phone: [facility] Work Phone: 03-30-2022 20:52-0400 Body temperature 96.5 [degF] Dr. Damian Powell Work Phone: [facility] Work Phone: 03-30-2022 20:52-0400 Diastolic blood pressure 76 mm[Hg] Dr. Damian Powell Work Phone: [facility] Work Phone: 03-30-2022 20:52-0400 Heart rate 78 /min Dr. Damian Powell Work Phone: [facility] Work Phone: 03-30-2022 20:52-0400 Respiratory rate 16 /min Dr. Damian Powell Work Phone: [facility] Work Phone: 03-30-2022 20:52-0400 SaO2% (BldA) [Mass fraction] 96 % Dr. Damian Powell Work Phone: [facility] Work Phone: 03-30-2022 20:52-0400 Systolic blood pressure 111 mm[Hg] Dr. Damian Powell Work Phone: [facility] Work Phone: 03-30-2022 20:33-0400 Body height 167.[address] Damian Powell Work Phone: [facility] Work Phone: 03-30-2022 20:33-0400 Body mass index (BMI) [Ratio] 34.2 kg/m2 Dr. Damian Powell Work Phone: [facility] Work Phone: 03-30-2022 20:33-0400 Body weight 96.[address] Damian Powell Work Phone: [facility] Work Phone: Encounters Encounter Date Encounter Type Care Provider Facility Start: 04-10-2025 End: 04-10-2025 Emergency department patient visit LITTLE MARINELLI Work Phone: -Emergency Department Work Phone: Start: 04-09-[address] Little Marinelli DO -[facility] [place] Work Phone: Start: 04-04-2025 Patient encounter procedure LITTLE MARINELLI Work Phone: -[facility] [place] Work Phone: Start: 04-04-2025 [facility] Facility:[facility] Start: 12-28-2024 End: 12-28-2024 Subsequent hospital visit by physician Lashaun Sierra MD Work Phone: [facility] X-ray Comment on above: Still's disease of a dult (HCC); History of rheumatoid arthritis; High risk medication use; Recurrent oral ulcers; MARVA positive; Generalized osteoarthritis Start: 12-28-2024 End: 12-28-2024 ambulatory LASHAUN [facility] Start: 12-28-2024 End: 12-28-2024 Office outpatient new 45 minutes Lashaun Sierra MD Work Phone: [facility] Comment on above: Still's disease of a dult (HCC) (Primary Dx); History of rheumatoid arthritis; High risk medication use; Recurrent oral ulcers; MARVA positive; Generalized osteoarthritis Start: 12-28-2024 End: 12-28-2024 ambulatory [facility] Start: 12-12-2024 End: 12-12-2024 ambulatory VASU POWELL Facility:[facility] Start: 12-01-2024 End: 12-01-2024 ambulatory LITTLE MARINELLI Work Phone: [facility] Work Phone: Start: 12-01-2024 End: 12-01-2024 Patient encounter procedure Nusrat RAMIREZ -Outpatient Breast Imaging Work Phone: Start: 12-01-2024 End: 12-01-2024 ambulatory PHU LAINEZ Facility:[facility] Start: 10-31-2024 End: 12-31-2024 Follow-up encounter Nusrat Hobson APRN.CNP Work Phone: OB/Gynecology Comment on above: Results Start: 10-30-2024 End: 10-30-2024 ambulatory NUSRAT HOBSON Facility:[facility] Start: 10-30-2024 End: 10-30-2024 Patient encounter procedure Nusrat Hobson APRN.SEXUAL ABUSE COUNSELLOR Work Phone: OB/Gynecology Comment on above: Encounter for gyneco logical examination (general) (routine) without abnormal findings (Primary Dx); Encounter for screening mammogram for breast cancer; Screen for STD (sexually transmitted disease) Start: 10-30-2024 End: 10-30-2024 Patient encounter status Nusrat Hobson SEXUAL ABUSE COUNSELLOR Work Phone: [facility] Start: 09-25-2024 [facility] Start: 09-25-2024 End: 09-25-2024 Telephone encounter Dat Mondragon MD Work Phone: [facility] Comment on above: New Patient Start: 06-02-2024 ambulatory PHU LAINEZ Facility:[facility] Start: 05-15-2024 ambulatory TEJAL PARKER [facility] Start: 11-29-2023 End: 11-29-[address] Vasu Powell Work Phone: [facility] Work Phone: Start: 11-29-2023 End: 11-29-[address] Vasu Powell Work Phone: [facility]-Outpatient Breast Imaging Work Phone: Start: 11-15-2023 Non-patient / Non-visit Dr. Mracy Powell Work Phone: [facility] Start: 11-15-2023 End: 11-15-2023 Admission to same day surgery center Dr. Vasu Powell Work Phone: [facility]-Endoscopy Work Phone: Start: 11-15-2023 End: 11-15-[address] Vasu Powell Work Phone: [facility] Work Phone: Start: 09-23-2023 Non-patient / Non-visit Dr. Marcy Powell Work Phone: [facility] Work Phone: Start: 06-02-2023 ambulatory ANTHONY RICHARDSON Facility :[facility] Start: 03-25-2023 End: 03-25-2023 Patient encounter procedure Cassie Angela APRN.SEXUAL ABUSE COUNSELLOR Work Phone: [facility] Comment on above: Boil of lower extrem ity (Primary Dx) Start: 11-23-2022 End: 11-23-2022 ambulatory [facility] Work Phone: Start: 11-23-2022 End: 11-23-2022 Patient encounter procedure [facility]-Outpatient Breast Imaging Start: 10-27-2022 ambulatory [facility] Facility:[facility] Start: 07-17-2022 End: 07-17-[address] Damian Powell Work Phone: [facility] Work Phone: Start: 07-17-2022 End: 07-17-[address] Damian Powell Work Phone: [facility] Start: 04-07-2022 End: 04-07-[address] Damian Powell Work Phone: [facility] Start: 03-31-2022 Non-patient / Non-visit Dr. Marcy Powell Work Phone: [facility] Start: 03-30-2022 End: 03-31-2022 Evaluation and management of inpatient Dr. Damian Powell Work Phone: [facility]-Medical Surgical 3 Start: 03-30-2022 End: 03-31-[address] Damian Powell Work Phone: [facility] Work Phone: Start: 03-30-2022 Admission to [facility] [place] Dr. Damian Powell Work Phone: [facility]-Geochemist Start: 03-30-[address] Damian Powell Work Phone: [facility] Work Phone: Start: 03-30-2022 Non-patient / Non-visit Dr. Marcy Powell Work Phone: [facility] Start: 03-30-2022 End: 03-30-[address] Damian Powell Work Phone: [facility] Work Phone: Start: 03-30-2022 End: 03-30-[address] Damian Powell Work Phone: [facility]-Cat Scan, [facility] Start: 11-20-2021 End: 11-20-2021 Patient encounter procedure [facility]-Outpatient Breast Imaging Start: 11-10-2021 End: 11-10-2021 Patient encounter procedure [facility]-Laboratory, [facility] Start: 10-23-2021 End: 10-23-2021 Patient encounter procedure [facility]-Laboratory, Specimen Start: 07-30-2021 Patient encounter procedure [facility]Labor[facility], [facility] Procedures Date Procedure Procedure Detail Performing Clinician Start: 04-10-2025 SARS-CoV-2, Influenz a & RSV (PCR) LITTLE MARINELLI Work Phone: Start: 04-10-2025 Estimated creatinine clearance LITTLE MARINELLI Work Phone: Start: 04-10-2025 CT of soft tissues o f neck with contrast LITTLE MARINELLI Work Phone: Start: 04-09-2025 X-ray of cervical spine LITTLE MARINELLI Work Phone: Start: 04-04-2025 X-ray of cervical spine LITTLE MARINELLI Work Phone: Start: 12-01-2024 End: 12-01-2024 Screening mammography LITTLE MARINELLI Work Phone: Start: 11-29-2023 Screening mammography Lavon Powell Work Phone: Start: 11-15-[address] Ivan Powell Work Phone: Start: 10-28-2023 History of appendectomy Histor y of appendectomy Nusrat Hobson APRN.CNP Work Phone: Start: 10-28-2023 Microscopic observat ion [Identifier] in Cervix by Cyto stain Lashaun Sierra MD Work Phone: Start: 11-23-2022 Screening mammography Start: 03-30-[address] Damian Powell Work Phone: Start: 03-30-2022 Computed tomography of abdomen and pelvis with contrast Dr. Damian Powell Work Phone: Start: 11-20-2021 Screening mammography Start: 10-18-2017 Mammography Cassie Crawford STRIPPER CUTTER MACHINE.SEXUAL ABUSE COUNSELLOR Work Phone: Start: 02-19-2017 Lipid 1996 panel - S arian or Plasma Nusrat Nicolas STRIPPER CUTTER MACHINE.SEXUAL ABUSE COUNSELLOR Work Phone: Start: 01-30-2015 Colonoscopy Lashaun go MD Work Phone: Start: 01-26-2011 H/O: bone marrow donation Bone marrow donor Cassie Angela STRIPPER CUTTER MACHINE.SEXUAL ABUSE COUNSELLOR Work Phone: History of appendectomy S/P appendectomy Dr. Damian Powell Work Phone: Comment on above: Patient doing very w ell at her first postoperative visit following laparoscopic appendectomy 03/30/2022. Questions whether she may have been dealing with this discomfort for longer than initially believed as she is experienced some improvements in her vitals otherwise. She is well-healing and wound care instructions are provided. Pathology was reviewed and consistent with acute necrotizing appendicitis. Patient cleared to return to work at the end of this week. I have urged her to use some caution and impose her own weight limits to make this return easier. Plan of Treatment Date Care Activity Detail Author Start: 2045 RSV Immunization for Adults (1 - 1-dose 75+ series) RSV Immunization for Adults (1 - 1-dose 75+ series) [facility] Start: 10-27-2028 Screening for malign ant neoplasm of cervix Cervical Cancer Screening [facility] Start: 11-17-2026 DTaP/Tdap/Td Vaccine s (2 - Td or Tdap) DTaP/Tdap/Td Vaccines (2 - Td or Tdap) [facility] Start: 11-17-2026 Urine microalbumin profile [facility] Start: 10-27-2026 Screening for malign ant neoplasm of cervix [facility] Start: 12-01-2025 Screening for malign ant neoplasm of breast [facility] Start: 11-01-2025 End: 11-01-2025 Patient encounter procedure 11/01/2025 4:00 PM EDT Office Visit OB/Gynecology [address] [place] [address] Nusrat Hobson APRN.SEXUAL ABUSE COUNSELLOR [address] [place] [address] annual OB/Gynecology Comment on above: annual Start: 04-30-2025 End: 04-30-2025 Patient encounter procedure 04/30/2025 3:00 PM EDT Office Visit [facility] [place] [address] [place] [id number] Lashaun Sierra MD [address] [place] [address] [facility] [place] Start: 04-10-2025 [facility] Start: 04-10-2025 End: 04-10-2025 [facility] Start: 04-10-2025 Bacteria identified in Blood by Culture Blood Culture [facility] Start: 04-10-2025 Streptococcus pyogen es (PCR) Streptococcus pyogenes (PCR) [facility] Start: 04-02-2025 Influenza vaccination Influenz a Vaccine (Season Ended) [facility] Start: 01-30-2025 Screening for malign ant neoplasm of colon [facility] Start: 12-28-2024 End: 12-28-2025 ANALYZER MARVA, IFA WITH REFLEX TITER/PATTERN, SYSTEMIC AUTOIMMUNE PANEL 1 [facility] ANALYZER MARVA, IFA WITH REFLEX TITER/PATTERN, SYSTEMIC AUTOIMMUNE PANEL 1 [facility] Lab Routine Still's disease of adult (HCC) History of rheumatoid arthritis High risk medication use Recurrent oral ulcers MARVA positive Generalized osteoarthritis Expected: 12/28/2024 (Approximate), Expires: 12/28/2025 [facility] Comment on above: Expected: 12/28/2024 (Approximate), Expires: 12/28/2025 Start: 12-28-2024 End: 12-28-2025 C reactive protein [Mass/volume] in Serum or Plasma C-reactive protein Lab Routine Still's disease of adult (HCC) History of rheumatoid arthritis High risk medication use Recurrent oral ulcers MARVA positive Generalized osteoarthritis Expected: 12/28/2024 (Approximate), Expires: 12/28/2025 [employer] [employer] Comment on above: Expected: 12/28/2024 (Approximate), Expires: 12/28/2025 Start: 12-28-2024 End: 12-28-2025 CBC W Auto Differential panel - Blood CBC auto differential Lab Routine Still's disease of adult (HCC) History of rheumatoid arthritis High risk medication use Recurrent oral ulcers MARVA positive Generalized osteoarthritis Expected: 12/28/2024 (Approximate), Expires: 12/28/2025 [facility] [employer] Comment on above: Expected: 12/28/2024 (Approximate), Expires: 12/28/2025 Start: 12-28-2024 End: 12-28-2025 Creatinine [Mass/volume] in Serum or Plasma Creatinine, Serum Lab Routine Still's disease of adult ([facility]) History of rheumatoid arthritis High risk medication use Recurrent oral ulcers MARVA positive Generalized osteoarthritis Expected: 12/28/2024 (Approximate), Expires: 12/28/2025 [employer] [employer] Comment on above: Expected: 12/28/2024 (Approximate), Expires: 12/28/2025 Start: 12-28-2024 End: 12-28-2025 Direct antiglobulin test.poly specific reagent [Presence] on Red Blood Cells Direct Calin, Poly Lab Routine Still's disease of adult (HCC) History of rheumatoid arthritis High risk medication use Recurrent oral ulcers MARVA positive Generalized osteoarthritis Expected: 12/28/2024 (Approximate), Expires: 12/28/2025 [employer] [employer] Comment on above: Expected: 12/28/2024 (Approximate), Expires: 12/28/2025 Start: 12-28-2024 End: 12-28-2025 Erythrocyte sedimentation rate Sedimentation rate, automated Lab Routine Still's disease of adult (HCC) History of rheumatoid arthritis High risk medication use Recurrent oral ulcers MARVA positive Generalized osteoarthritis Expected: 12/28/2024 (Approximate), Expires: 12/28/2025 [facility] [employer] Comment on above: Expected: 12/28/2024 (Approximate), Expires: 12/28/2025 Start: 12-28-2024 End: 12-28-2025 Ferritin [Mass/volume] in Serum or Plasma Ferritin Lab Routine Still's disease of adult (HCC) History of rheumatoid arthritis High risk medication use Recurrent oral ulcers MARVA positive Generalized osteoarthritis Expected: 12/28/2024 (Approximate), Expires: 12/28/2025 [facility] [employer] Comment on above: Expected: 12/28/2024 (Approximate), Expires: 12/28/2025 Start: 12-28-2024 End: 12-28-2025 Hepatic function 2000 panel - Serum or Plasma Hepatic function panel Lab Routine Still's disease of adult (HCC) History of rheumatoid arthritis High risk medication use Recurrent oral ulcers MARVA positive Generalized osteoarthritis Expected: 12/28/2024 (Approximate), Expires: 12/28/2025 [facility] [employer] Comment on above: Expected: 12/28/2024 (Approximate), Expires: 12/28/2025 Start: 12-28-2024 End: 12-28-2025 Hepatitis B Core Antibody, Total Hepatitis B Core Antibody, Total Lab Routine Still's disease of adult (HCC) History of rheumatoid arthritis High risk medication use Recurrent oral ulcers MARVA positive Generalized osteoarthritis Expected: 12/28/2024 (Approximate), Expires: 12/28/2025 [facility] [employer] Comment on above: Expected: 12/28/2024 (Approximate), Expires: 12/28/2025 Start: 12-28-2024 End: 12-28-2025 Hepatitis B virus surface Ab [Units/volume] in Serum or Plasma by Immunoassay Hepatitis B surface antibody Lab Routine Still's disease of adult (HCC) History of rheumatoid arthritis High risk medication use Recurrent oral ulcers MARVA positive Generalized osteoarthritis Expected: 12/28/2024 (Approximate), Expires: 12/28/2025 [facility] [employer] Comment on above: Expected: 12/28/2024 (Approximate), Expires: 12/28/2025 Start: 12-28-2024 End: 12-28-2025 Hepatitis B virus surface Ag [Presence] in Serum or Plasma by Immunoassay Hepatitis B surface antigen Lab Routine Still's disease of adult (HCC) History of rheumatoid arthritis High risk medication use Recurrent oral ulcers MARVA positive Generalized osteoarthritis Expected: 12/28/2024 (Approximate), Expires: 12/28/2025 [employer] Comment on above: Expected: 12/28/2024 (Approximate), Expires: 12/28/2025 Start: 12-28-2024 End: 12-28-2025 Hepatitis C virus Ab [Presence] in Serum or Plasma by Immunoassay Hepatitis C antibody Lab Routine Still's disease of adult (HCC) History of rheumatoid arthritis High risk medication use Recurrent oral ulcers MARVA positive Generalized osteoarthritis Expected: 12/28/2024 (Approximate), Expires: 12/28/2025 [facility] [employer] Comment on above: Expected: 12/28/2024 (Approximate), Expires: 12/28/2025 Start: 12-28-2024 End: 12-28-2025 LUPUS ANTICOAGULANT EVALUATION WITH REFLEX (BKR QUEST) LUPUS ANTICOAGULANT EVALUATION WITH REFLEX (BKR QUEST) Lab Routine Still's disease of adult (HCC) History of rheumatoid arthritis High risk medication use Recurrent oral ulcers MARVA positive Generalized osteoarthritis Expected: 12/28/2024 (Approximate), Expires: 12/28/2025 [facility] [employer] Work Phone: Comment on above: Expected: 12/28/2024 (Approximate), Expires: 12/28/2025 Start: 12-28-2024 End: 12-28-2025 QUANTIFERON TB GOLD QUANTIFERON TB GOLD Lab Routine Still's disease of adult (HCC) History of rheumatoid arthritis High risk medication use Recurrent oral ulcers MARVA positive Generalized osteoarthritis Expected: 12/28/2024 (Approximate), Expires: 12/28/2025 [facility] [employer] Comment on above: Expected: 12/28/2024 (Approximate), Expires: 12/28/2025 Start: 12-28-2024 End: 12-28-2025 XR Foot - bilateral 3 Views [facility] [employer] Comment on above: Expected: 12/28/2024 , Expires: 12/28/2025 Once for 1 Occurrenc es starting 12/28/2024 until 12/28/2024 Start: 12-28-2024 End: 12-28-2025 XR Hand - bilateral 3 Views [facility] [employer] Comment on above: Expected: 12/28/2024 , Expires: 12/28/2025 Once for 1 Occurrenc es starting 12/28/2024 until 12/28/2024 Start: 12-28-2024 End: 12-28-2025 XR Wrist - bilateral 3 Views [facility] Comment on above: Expected: 12/28/2024 , Expires: 12/28/2025 Once for 1 Occurrenc es starting 12/28/2024 until 12/28/2024 Start: 12-28-2024 End: 12-28-2024 Patient encounter procedure 12/28/2024 10:00 AM EDT Office Visit [facility] [address] [place] [id number] Lashaun Sierra MD [address] [place], [place] [id number] [facility] Start: 11-28-2024 Screening for malign ant neoplasm of breast Mammogram Screening [facility] Start: 10-30-2024 End: 01-29-2025 Hepatitis B virus surface Ag [Presence] in Serum [facility] Comment on above: Expected: 10/30/2024 , Expires: 01/29/2025 Start: 10-30-2024 End: 01-29-2025 HIV 1+2 Ab [Presence] in Serum or Plasma by Immunoassay [facility] Comment on above: Expected: 10/30/2024 , Expires: 01/29/2025 Start: 10-30-2024 End: 01-29-2025 SYPHILIS TREPONEMAL W/REFLEX [facility] Comment on above: Expected: 10/30/2024 , Expires: 01/29/2025 Start: 04-02-2024 COVID-19 Vaccine ( season) COVID-19 Vaccine () [facility] Start: 04-02-2024 Influenza vaccination Influenza Vacc ine (#1) [facility] Start: 11-15-2023 Colonoscopy w/biopsy single/multiple COLONOSCOPY AND BIOPSY [facility] Start: [facility] Start: 08-29-2023 HPV TESTING HPV TESTING [facility] Start: 08-29-2023 PAP TESTING PAP TESTING [facility] Start: 04-02-2023 Influenza vaccination INFLUENZA (#1) [facility] Start: 03-25-2023 End: 05-25-2023 Bacteria identified in Wound by Culture [facility] Work Phone: Comment on above: Expected: 03/25/2023 , Expires: 05/25/2023 Start: 08-02-2022 DEPRESSION ASSESSMENT DEPRESSION ASS ESSMENT [facility] Start: 03-31-2022 Patient discharge [facility] Work Phone: Start: 03-31-2022 Oxygen therapy [facility] Work Phone: Start: 03-31-2022 Catheterization of vein [facility] Work Phone: Start: 03-31-2022 Application of intermittent pneumatic compression device [facility] Work Phone: Start: 03-30-2022 Following clinical pathway protocol [facility] Work Phone: Start: 03-30-2022 Application of ice collar, cap or bag [facility] Work Phone: Start: 03-30-[address] [facility] Work Phone: Start: 03-30-2022 Laparoscopic appendectomy Laparoscopic, Appendectomy [facility] Work Phone: Start: 02-19-2022 Lipid panel Lipid Screening [facility] Start: 02-19-2022 LIPID SCREEN LIPID SCREEN [facility] Start: 01-18-2021 [facility]ABET[facility] Start: 01-18-2021 Diabetes Screening Diabetes Screenin g [facility] Start: 2020 Pneumococcal Vaccine : 50+ (1 of 1 - PCV) Pneumococcal Vaccine: 50+ (1 of 1 - PCV) [facility] Start: 2020 Pneumococcal Vaccine : 50+ Years (1 of 1 - PCV) Pneumococcal Vaccine: 50+ Years (1 of 1 - PCV) [facility] Start: 2020 SHINGRIX VACCINE (1 of 2) SHINGRIX VACCINE (1 of 2) [facility] Start: 10-18-2018 Mammography MAMMOGRAM [facility] Start: 10-25-2015 COLOGUARD (FIT-DNA) COLOGUARD (FIT-D NA) [facility] Start: 10-25-2015 Colonoscopy COLONOSCOPY [facility] Start: 10-25-2015 COLORECTAL CANCER SCREENING COLORECTAL CANCER SCREENING [facility] Start: 10-25-[address] COLONOGRAPHY [facility] Start: 10-25-2015 FECAL OCCULT BLOOD FECAL OCCULT BLOO D [facility] Start: 10-25-2015 Screening for malign ant neoplasm of colon [facility] Start: 10-25-2015 SIGMOIDOSCOPY SIGMOIDOSCOPY [facility] Start: 06-18-2014 MMR Vaccines (1 of 1 - Standard series) MMR Vaccines (1 of 1 - Standard series) [facility] Start: 2010 Screening for malign ant neoplasm of breast Mammogram [facility] Start: 2000 Screening for malign ant neoplasm of cervix [facility] Start: 08-30-1996 HEPATITIS B (2 of 3 - Hep B Twinrix 3-dose series) HEPATITIS B (2 of 3 - Hep B Twinrix 3-dose series) [facility] Start: 08-30-1996 Hepatitis B Vaccine (2 of 3 - Hep B Twinrix 3-dose series) Hepatitis B Vaccine (2 of 3 - Hep B Twinrix 3-dose series) [facility] Start: 08-30-1996 Hepatitis B Vaccines (2 of 3 - Hep B Twinrix 3-dose series) Hepatitis B Vaccines (2 of 3 - Hep B Twinrix 3-dose series) [facility] Start: 10-25-1991 Screening for malign ant neoplasm of cervix Pap Smear [facility] Start: 1988 Anxiety Screening Anxiety Screening [facility] Start: 1988 Depression Screening Depression Scre ening [facility] Start: 1988 Diabetes mellitus screening Diabetes Screening [facility] Start: 1988 Hepatitis C screening Hepatitis C Sc reening [facility] Start: 1982 Depression Screening Depression Scre ening [facility] Start: 1970 HIV screening HIV Screening [facility] Start: 1970 Screening for malign ant neoplasm of colon [facility] BACTERIAL VAGINOSIS NAAT BACTERI AL VAGINOSIS NAAT Lab Routine Screen for STD (sexually transmitted disease) Ordered: 10/30/2024 [facility] Comment on above: Ordered: 10/30/2024 CLIFFORD/TRICHOMONAS NAAT CLIFFORD /TRICHOMONAS NAAT Lab Routine Screen for STD (sexually transmitted disease) Ordered: 10/30/2024 [facility] Work Phone: Comment on above: Ordered: 10/30/2024 Chlamydia trachomatis+Neisseria gonorrhoeae DNA [Presence] in Unspecified specimen by BILLY with probe detection GONORRHEA/CHLAMYDIA NAAT Lab Routine Screen for STD (sexually transmitted disease) Ordered: 10/30/2024 [facility] Comment on above: Ordered: 10/30/2024 Colonoscopy [facility] Patient Education [facility] Work Phone: Patient referral [facility] Work Phone: Streptococcus pyogen es rRNA [Presence] in Throat by Probe [facility] Immunizations Immunization Date Immunization Notes Care Provider Dk [facility] 07-27-2021 Covid (Pfizer) Dr. Lucas Powell Work Phone: [facility] 10-17-2020 Covid (Pfizer) Dr. Lucas Powell Work Phone: [facility] 09-26-2020 Covid (Pfizer) Dr. Lucas Powell Work Phone: [facility] 07-17-2017 influenza, injectabl e, quadrivalent, contains preservative Cassie Angela APRN.SEXUAL ABUSE COUNSELLOR Work Phone: [facility] Work Phone: 07-17-2017 influenza virus vaccine, unspecified formulation Dat Mondragon MD Work Phone: [facility] [employer] 11-17-2016 tetanus toxoid, reduced diphtheria toxoid, and acellular pertussis vaccine, adsorbed Cassie Angela STRIPPER CUTTER MACHINE.SEXUAL ABUSE COUNSELLOR Work Phone: [facility] 08-02-1996 hepatitis A and hepatitis B vaccine Cassie Angela STRIPPER CUTTER MACHINE.SEXUAL ABUSE COUNSELLOR Work Phone: [facility] 08-02-1996 hepatitis B vaccine, unspecified formulation Cassie Angela APRN.SEXUAL ABUSE COUNSELLOR Work Phone: [facility] Payers Date Payer Category Payer Self-pay [id number] 2021 Commercial Managed C are - HMO MMO SUPERMED [id number] 2012 Private Health Insurance MMO SUP ERMED PPO [id number] 2012 Unknown MMO MMO SUPERMED PPO [id number] 2012-Present [phone] [address] [place] [id number] PPO [id number] 2012 Unknown [id number] 1970 Unknown [id number] 1970 Unknown [id number] Unknown [id number] Unknown [id number] Unknown [id number] Social History Date Type Detail Facility Start: 11-06-2020 End: 11-15-2023 Tobacco smoking status IAIS Unknown if ever smoked [facility] Start: 1970 Sex Assigned At Female [facility] Start: 03-25-2023 End: 04-10-2025 Tobacco smoking status IAIS Never smoked tobacco [facility] Start: 03-25-2023 End: 12-28-2024 Tobacco use and exposure Smokeless tobacco non-user [facility] Start: 03-25-2023 Alcohol intake Not Asked [facility] Start: 03-25-2023 End: 12-28-2024 History of Social function [facility] Start: 03-25-2023 End: 12-28-2024 Tobacco use panel [facility] National Score (1-10 0), lower number is lower risk Not on file [facility] Start: 1970 Sex Assigned At Not on file [facility] Start: 03-02-2022 End: 05-04-2024 Sex Female (finding) [facility] Start: 10-30-2024 End: 12-28-2024 Alcoholic beverage intake Lifetime non-drinker (finding) [facility] Medical Equipment Procedure Code Equipment Code Equipment Origin al Text Equipment Identifier Dates Appendectomy, laparoscopic RELOAD,STD 45 [id number] FDA Start: 03-30-2022 Appendectomy, laparoscopic RELOAD,STD 45 [id number] FDA Start: 03-30-2022 Appendectomy, laparoscopic RELOAD,STD 45 [id number] FDA Start: 03-30-2022 Appendectomy, laparoscopic RELOAD,STD 45 [id number] FDA Start: 03-30-2022 Appendectomy, laparoscopic RELOAD,STD 45 [id number] FDA Start: 03-30-2022 Appendectomy, laparoscopic RELOAD,STD 45 [id number] FDA Start: 03-30-2022 Appendectomy, laparoscopic RELOAD,STD 45 [id number] FDA Start: 03-30-2022 Appendectomy, laparoscopic RELOAD,STD 45 [id number] FDA Start: 03-30-2022 Goals Date Patient Goal Desired Activity /State Functional Status Date Assessment Result Facility 03-31-2022 Functional status Ambulates;Up ad rosaura [facility] Work Phone: Mental Status Date Assessment Result Facility 04-10-2025 Cognitive function Level Of Cons ciousness Awake;Alert;Appropriate;Follow s Commands [facility] Work Phone: 11-15-2023 Cognitive function Voice/Name;Touch/Shaki ng [facility] Work Phone: 03-31-2022 Cognitive function Level Of Cons ciousness Awake;Alert;Appropriate;Follow s Commands [facility] Work Phone: 03-31-2022 Cognitive function Voice/Name [facility] Work Phone: Clinical Notes 01-26-2011 to 04-10-2025 Lesa Killian, - 12/28/2024 10:00 AM Keith Sierra MD - 12/28/2024 10:00 AM Nusrat Ramos APRN.CNP - 10/30/2024 3:53 PM EDTPatient Instructions Note Date & Type Note Facility 04-10-2025 Radiology Diagnostic study note [facility] [address] [place], [place] [address] Soft Tissue Neck WITH Contrast MR#: [id number] Acct: [id number] Name: JUNIOR FLORIAN Rep #: [id number] : 1970 F 54 From: Navjot Cheng MD PCP: LITTLE MARINELLI Status: REG LUIS Study:Soft Tissue Neck WITH Contrast Date of Exam: 04/10/25 Exam# [id number] Ordering Dr: Leonel Lara DO PROCEDURE: SOFT TISSUE NECK WITH CONTRAST 04/10/2025 REASON FOR EXAM: NECK PAIN Left-sided soft tissue swelling and redness. TECHNIQUE: Procedure Code: CTNEW Modality: CT Procedure: SOFT TISSUE NECK WITH CONTRAST CONTRAST: Isovue 370 VOLUME: 90 mL One or more dose reduction techniques were used (e.g., Automated exposure control, adjustment of the mA and/or kV according to patient size, use of iterative reconstruction technique). RADIATION DOSE SUMMARY: CTDlvol: 15.2 mGy DLP: 421.52 mGycm COMPARISON: None FINDINGS: Airway: Midline and patent. Salivary glands: Mild enlargement of the left parotid gland. There is a 1 cm enhancing lymph node along its inferior aspect of the left parotid gland. Left parotiditis should be ruled out. Lymph nodes: Mild reactive enlargement of multiple cervical lymph nodes. Thyroid: Unremarkable. Vasculature: Carotid arteries and internal jugular veins are unremarkable. Orbits: Unremarkable at visualized levels. Paranasal sinuses and mastoids: Grossly clear at visualized levels. Lung apices: Clear. Upper mediastinum: Visualized mediastinum is unremarkable. Bones: Unremarkable. Other: CT/Soft Tissue Neck WITH Contrast IMPRESSION: Swelling of the left parotid gland with the 1 cm lymph node seen along its inferior margin. Parotiditis should be ruled out. Reading Location: [id number] CC: Dr. Leonel Lara, DO; LITTLE MARINELLI ~ Channel Opener: Signed [facility] 12-28-2024 History of Presen t illness Narrative RHEUMATOLOGY CLINIC NOTE Junior Florian is a 54 y.o. year old female patient referred for RA/hx of Stills/+ MARVA. 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 Previously followed by Dr Urban in [place]. Had fevers, arthralgia, and rashes. Fever was present for >1 wk. Treated with methotrexate and steroids. Was on methotrexate for 2 years. Did report fatigue and worsening of joint pain on this medication. RA diagnosed following suspected AOSD. Patient reports positive MARVA and CCP. No repeated flares of the above necessarily, but does report extensive mouth sores. Entire mouth peels. Occurs 3-4x per year. No fevers during episodes. Ongoing for 8-10 years. In the past year reports 1-2 fevers (~100-101.1). Will check temperature when feeling fatigued. Reports generalized joint pain in knees, hips, elbows, and R shoulder. Knee and hip pain have been ongoing for ~15 yrs. R shoulder pain ongoing for 3-5 yrs, but now worsening. She does use this arm for art projects. Reports AM morning stiffness only lasting ~5-10 minutes. Joint pain worsens with both use and also if seated for an extended period of time. Reports improvement of hip pain with motion. Will take advil if joint pain is flaring. Advil does relieve pain. Endorses finger swelling all throughout the day. Pain and swelling in PIP joints. Using hands worsens this pain. No raynaud's phenomenon. No photosensitivity. Extensive hx of autoimmune disease and cancer in family members. No EtOH use. Reports spinal fusion from extensive lifting. This was told to her by a chiropractor ~30 yrs ago. Patient hesitant to start PO or infusion therapy due to prior intolerance of methotrexate, prior familial experiences, and concerns regarding side effects. RHEUMATOLOGIC: (+) Hair Loss (+) Hair Thinning (+) Eye Redness (+) Eye Pain (+) Oral Ulcers (-) Nasal Ulcers (-) Genital Ulcers (-) Dry Eyes (+) Dry Mouth (-) Skin Rash (-) Psoriasis (-) Photosensitivity (-) Pleurisy (-) History of Pleural Effusion (-) History of Pericarditis / Pericardial effusion (-) Urethritis/Urethral Discharge (-) Colitis/IBD (-) Enthesitis (+) Back Pain (-) Raynaud's (-) Seizures (-) Stroke/TIA (+) Venous Thrombosis - this was associated w OCP, no further instances since OCP cessation (-) History of Hepatitis B or C or TB Total Pregnancies ( 5 ) : Miscarriage( ),( ),Live ( 2 ) Medical History[1] Surgical History[2] Family History[3] Social History[4] Current Medications[5] Review of Systems Constitutional: Negative for chills, fatigue, fever and unexpected weight change. HENT: Negative for mouth sores and trouble swallowing. Musculoskeletal: Positive for arthralgias and back pain. Neurological: Negative for weakness. All other systems reviewed and are negative. PMH, PSH, Family History and Medication History were reviewed personally with the patient. Objective There were no vitals taken for this visit. Physical Exam Vitals reviewed. Constitutional: Appearance: Normal appearance. Cardiovascular: Rate and Rhythm: Normal rate and regular rhythm. Pulmonary: Effort: Pulmonary effort is normal. Breath sounds: Normal breath sounds. Abdominal: General: There is no distension. Palpations: Abdomen is soft. There is no hepatomegaly, splenomegaly or mass. Tenderness: There is no abdominal tenderness. Musculoskeletal: Right shoulder: Tenderness present. No swelling, deformity, bony tenderness or crepitus. Normal range of motion. Normal strength. Left shoulder: Normal. Cervical back: Normal. Thoracic back: Normal. Lumbar back: Tenderness present. No swelling, deformity or bony tenderness. Right lower leg: No edema. Left lower leg: No edema. Skin: General: Skin is warm and dry. Findings: No rash. Neurological: Mental Status: She is alert. Psychiatric: Mood and Affect: Mood normal. Behavior: Behavior normal. Thought Content: Thought content normal. Musculoskeletal: Neck: Full ROM. no swelling.No tenderness, Shoulder: Bilateral full active ROM.no swelling. No tenderness, Elbows: Full ROM. No swelling. Tenderness to R shoulder and pain w motion. Wrists: Full ROM. no swelling, No tenderness, Hands: Full ROM. Tenderness of MCP and PIP joints. Hips: Normal ROM. No swelling, No tenderness, Knees: Normal ROM, no swelling, No tenderness, Feet: Full ROM. no swelling, No tenderness, Ankles: Normal ROM,no swelling, No tenderness, Spine: No spinous process tenderness. L sacroiliac joint tenderness. Data Reviewed and Summarized Labs: No results found for: WBC, HGB, HCT, MCV, PLT No results found for: CREATININE, BUN, NA, K, CL, CO2 No results found for: ALT, AST, GGT, ALKPHOS, BILITOT No results found for: ESREXT, SEDRATE, SEDRATEBYMOD, HSCRP, CRP, RF, RHEUMATOIDFA, RHEUFAIGA, RHEFACIGG, RHEFACIGM, CCP, CYCLICCITRUL, CCPGA, CCPABIGG, CCPAB No results found for: ANAIFA, ANATITER, ANAPATTRN, MARVA, ANATITERADD, LABANTI No results found for: MWC57JJ, SSAAB, RO, QSSA, QSJOS, SSBAB, LA, CENTROMERE, CENTROMEREB, CENTABIGG No results found for: SCL70, HSSOS492, QPMSCL, XLY20UP, [id number], [id number], GSSYK644YE, PWSQU32VI No results found for: RNPAB, QRNP, P6WAQPH, QSMRNPAB, SMRNPAB, L3GMVDUOXG, SMG No results found for: DSDNAAB, QDSDNAC, DNACRTI, ANTI, QRIBO, JO1, [id number], JO1AB, QRNAPAB, HISTONEANTIB, HISTONEABIGG No results found for: C3, COMPLEMENTCO, C4, CH50, COMPLEMENTTO No results found for: ALDOLASE, CKTOTAL, CKISO, HLAB27, [id number] No results found for: MICROALBCREA, UTPCR, PROTCREATU No results found for: LUPINT, LUPUS, DRVVTLA, LUPUSANTICOA, CARDIOLIPINA, CARDABIGASER, CARDG, T9OKKBP6, V1YVXXG5SOT, Q0ATNPWKSX, JEKZCF1XOHEO, KNVLQK9YMMAV, [id number] No results found for: ANCA, QANCA, CANCA, PANCATITER, ATYPANCA, URICACID, MYOSITIS Imaging/Testing: Assessment & Plan Still's disease of adult (HCC) Orders: LUPUS ANTICOAGULANT EVALUATION WITH REFLEX (BKR QUEST); Future Direct Calin, Poly; Future ANALYZER MARVA, IFA WITH REFLEX TITER/PATTERN, SYSTEMIC AUTOIMMUNE PANEL 1 QUEST; Future Hepatitis B Core Antibody, Total; Future Hepatitis B surface antibody; Future Hepatitis B surface antigen; Future Hepatitis C antibody; Future QUANTIFERON TB GOLD; Future Hepatic function panel; Future CBC auto differential; Future C-reactive protein; Future Creatinine, Serum; Future Sedimentation rate, automated; Future Ferritin; Future XR hand 3+ views bilateral; Future XR foot 3+ views bilateral; Future XR wrist 3+ views bilateral; Future History of rheumatoid arthritis Orders: LUPUS ANTICOAGULANT EVALUATION WITH REFLEX (BKR QUEST); Future Direct Calin, Poly; Future ANALYZER MARVA, IFA WITH REFLEX TITER/PATTERN, SYSTEMIC AUTOIMMUNE PANEL 1 QUEST; Future Hepatitis B Core Antibody, Total; Future Hepatitis B surface antibody; Future Hepatitis B surface antigen; Future Hepatitis C antibody; Future QUANTIFERON TB GOLD; Future Hepatic function panel; Future CBC auto differential; Future C-reactive protein; Future Creatinine, Serum; Future Sedimentation rate, automated; Future Ferritin; Future XR hand 3+ views bilateral; Future XR foot 3+ views bilateral; Future XR wrist 3+ views bilateral; Future High risk medication use Orders: LUPUS ANTICOAGULANT EVALUATION WITH REFLEX (BKR QUEST); Future Direct Calin, Poly; Future ANALYZER MARVA, IFA WITH REFLEX TITER/PATTERN, SYSTEMIC AUTOIMMUNE PANEL 1 QUEST; Future Hepatitis B Core Antibody, Total; Future Hepatitis B surface antibody; Future Hepatitis B surface antigen; Future Hepatitis C antibody; Future QUANTIFERON TB GOLD; Future Hepatic function panel; Future CBC auto differential; Future C-reactive protein; Future Creatinine, Serum; Future Sedimentation rate, automated; Future Ferritin; Future XR hand 3+ views bilateral; Future XR foot 3+ views bilateral; Future XR wrist 3+ views bilateral; Future Recurrent oral ulcers Orders: LUPUS ANTICOAGULANT EVALUATION WITH REFLEX (BKR QUEST); Future Direct Calin, Poly; Future ANALYZER MARVA, IFA WITH REFLEX TITER/PATTERN, SYSTEMIC AUTOIMMUNE PANEL 1 QUEST; Future Hepatitis B Core Antibody, Total; Future Hepatitis B surface antibody; Future Hepatitis B surface antigen; Future Hepatitis C antibody; Future QUANTIFERON TB GOLD; Future Hepatic function panel; Future CBC auto differential; Future C-reactive protein; Future Creatinine, Serum; Future Sedimentation rate, automated; Future Ferritin; Future XR hand 3+ views bilateral; Future XR foot 3+ views bilateral; Future XR wrist 3+ views bilateral; Future MARVA positive Orders: LUPUS ANTICOAGULANT EVALUATION WITH REFLEX (BKR QUEST); Future Direct Calin, Poly; Future ANALYZER MARVA, IFA WITH REFLEX TITER/PATTERN, SYSTEMIC AUTOIMMUNE PANEL 1 QUEST; Future Hepatitis B Core Antibody, Total; Future Hepatitis B surface antibody; Future Hepatitis B surface antigen; Future Hepatitis C antibody; Future QUANTIFERON TB GOLD; Future Hepatic function panel; Future CBC auto differential; Future C-reactive protein; Future Creatinine, Serum; Future Sedimentation rate, automated; Future Ferritin; Future XR hand 3+ views bilateral; Future XR foot 3+ views bilateral; Future XR wrist 3+ views bilateral; Future Generalized osteoarthritis Orders: LUPUS ANTICOAGULANT EVALUATION WITH REFLEX (BKR QUEST); Future Direct Calin, Poly; Future ANALYZER MARVA, IFA WITH REFLEX TITER/PATTERN, SYSTEMIC AUTOIMMUNE PANEL 1 QUEST; Future Hepatitis B Core Antibody, Total; Future Hepatitis B surface antibody; Future Hepatitis B surface antigen; Future Hepatitis C antibody; Future QUANTIFERON TB GOLD; Future Hepatic function panel; Future CBC auto differential; Future C-reactive protein; Future Creatinine, Serum; Future Sedimentation rate, automated; Future Ferritin; Future XR hand 3+ views bilateral; Future XR foot 3+ views bilateral; Future ASSESSMENT & PLAN : Unable to find records of reported Adult Onset Stills disease, but patient's prior symptoms seem consistent with the diagnosis and this was made by a repair service dispatcher, Dr Urban. Etiology of symptoms unclear at this time, but suspect there is some osteoarthritis and an underlying component of autoimmune disease. There may be multiple autoimmune conditions present with the constellation of symptoms she experiences. We will evaluate further with the labs above and XR imaging of bilateral hands, wrists, and feet. Discussed possibility of initiating medical therapy pending the results of the above work up. Patient is hesitant to both oral medications and infusions due to personal poor tolerance of methotrexate and concern about the side effects of biologic therapy, due to her family hx of leukemia. Will continue discussion pending results of work up. Patient will be seen for follow up in 4 months. [1] No past medical history on file. [2] No past surgical history on file. [3] No family history on file. [4] [5] No current outpatient medications on file. Cosigned by Lashaun Sierra MD at 12/28/2024 11:56 AM EDT documented in this encounter [facility] 12-28-2024 History of Presen t illness Narrative RHEUMATOLOGY CLINIC NOTE Junior Florian is a 54 y.o. year old female patient referred for RA/hx of Stills/+ MARVA. 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 Previously followed by Dr Urban in [place]. Had fevers, arthralgia, and rashes. Fever was present for >1 wk. Treated with methotrexate and steroids. Was on methotrexate for 2 years. Did report fatigue and worsening of joint pain on this medication. RA diagnosed following suspected AOSD. Patient reports positive MARVA and CCP. No repeated flares of the above necessarily, but does report extensive mouth sores. Entire mouth peels. Occurs 3-4x per year. No fevers during episodes. Ongoing for 8-10 years. In the past year reports 1-2 fevers (~100-101.1). Will check temperature when feeling fatigued. Reports generalized joint pain in knees, hips, elbows, and R shoulder. Knee and hip pain have been ongoing for ~15 yrs. R shoulder pain ongoing for 3-5 yrs, but now worsening. She does use this arm for art projects. Reports AM morning stiffness only lasting ~5-10 minutes. Joint pain worsens with both use and also if seated for an extended period of time. Reports improvement of hip pain with motion. Will take advil if joint pain is flaring. Advil does relieve pain. Endorses finger swelling all throughout the day. Pain and swelling in PIP joints. Using hands worsens this pain. No raynaud's phenomenon. No photosensitivity. Extensive hx of autoimmune disease and cancer in family members. No EtOH use. Reports spinal fusion from extensive lifting. This was told to her by a chiropractor ~30 yrs ago. Patient hesitant to start PO or infusion therapy due to prior intolerance of methotrexate, prior familial experiences, and concerns regarding side effects. RHEUMATOLOGIC: (+) Hair Loss (+) Hair Thinning (+) Eye Redness (+) Eye Pain (+) Oral Ulcers (-) Nasal Ulcers (-) Genital Ulcers (-) Dry Eyes (+) Dry Mouth (-) Skin Rash (-) Psoriasis (-) Photosensitivity (-) Pleurisy (-) History of Pleural Effusion (-) History of Pericarditis / Pericardial effusion (-) Urethritis/Urethral Discharge (-) Colitis/IBD (-) Enthesitis (+) Back Pain (-) Raynaud's (-) Seizures (-) Stroke/TIA (+) Venous Thrombosis - this was associated w OCP, no further instances since OCP cessation (-) History of Hepatitis B or C or TB Total Pregnancies ( 5 ) : Miscarriage( ),( ),Live ( 2 ) Medical History[1] Surgical History[2] Family History[3] Social History[4] Current Medications[5] Review of Systems Constitutional: Negative for chills, fatigue, fever and unexpected weight change. HENT: Negative for mouth sores and trouble swallowing. Musculoskeletal: Positive for arthralgias and back pain. Neurological: Negative for weakness. All other systems reviewed and are negative. PMH, PSH, Family History and Medication History were reviewed personally with the patient. Objective There were no vitals taken for this visit. Physical Exam Vitals reviewed. Constitutional: Appearance: Normal appearance. Cardiovascular: Rate and Rhythm: Normal rate and regular rhythm. Pulmonary: Effort: Pulmonary effort is normal. Breath sounds: Normal breath sounds. Abdominal: General: There is no distension. Palpations: Abdomen is soft. There is no hepatomegaly, splenomegaly or mass. Tenderness: There is no abdominal tenderness. Musculoskeletal: Right shoulder: Tenderness present. No swelling, deformity, bony tenderness or crepitus. Normal range of motion. Normal strength. Left shoulder: Normal. Cervical back: Normal. Thoracic back: Normal. Lumbar back: Tenderness present. No swelling, deformity or bony tenderness. Right lower leg: No edema. Left lower leg: No edema. Skin: General: Skin is warm and dry. Findings: No rash. Neurological: Mental Status: She is alert. Psychiatric: Mood and Affect: Mood normal. Behavior: Behavior normal. Thought Content: Thought content normal. Musculoskeletal: Neck: Full ROM. no swelling.No tenderness, Shoulder: Bilateral full active ROM.no swelling. No tenderness, Elbows: Full ROM. No swelling. Tenderness to R shoulder and pain w motion. Wrists: Full ROM. no swelling, No tenderness, Hands: Full ROM. Tenderness of MCP and PIP joints. Hips: Normal ROM. No swelling, No tenderness, Knees: Normal ROM, no swelling, No tenderness, Feet: Full ROM. no swelling, No tenderness, Ankles: Normal ROM,no swelling, No tenderness, Spine: No spinous process tenderness. L sacroiliac joint tenderness. Data Reviewed and Summarized Labs: Imaging/Testing: Assessment & Plan Still's disease of adult (HCC) Orders: LUPUS ANTICOAGULANT EVALUATION WITH REFLEX (BKR QUEST); Future Direct Calin, Poly; Future ANALYZER MARVA, IFA WITH REFLEX TITER/PATTERN, SYSTEMIC AUTOIMMUNE PANEL 1 QUEST; Future Hepatitis B Core Antibody, Total; Future Hepatitis B surface antibody; Future Hepatitis B surface antigen; Future Hepatitis C antibody; Future QUANTIFERON TB GOLD; Future Hepatic function panel; Future CBC auto differential; Future C-reactive protein; Future Creatinine, Serum; Future Sedimentation rate, automated; Future Ferritin; Future XR hand 3+ views bilateral; Future XR foot 3+ views bilateral; Future XR wrist 3+ views bilateral; Future History of rheumatoid arthritis Orders: LUPUS ANTICOAGULANT EVALUATION WITH REFLEX (BKR QUEST); Future Direct Calin, Poly; Future ANALYZER MARVA, IFA WITH REFLEX TITER/PATTERN, SYSTEMIC AUTOIMMUNE PANEL 1 QUEST; Future Hepatitis B Core Antibody, Total; Future Hepatitis B surface antibody; Future Hepatitis B surface antigen; Future Hepatitis C antibody; Future QUANTIFERON TB GOLD; Future Hepatic function panel; Future CBC auto differential; Future C-reactive protein; Future Creatinine, Serum; Future Sedimentation rate, automated; Future Ferritin; Future XR hand 3+ views bilateral; Future XR foot 3+ views bilateral; Future XR wrist 3+ views bilateral; Future High risk medication use Orders: LUPUS ANTICOAGULANT EVALUATION WITH REFLEX (BKR QUEST); Future Direct Calin, Poly; Future ANALYZER MARVA, IFA WITH REFLEX TITER/PATTERN, SYSTEMIC AUTOIMMUNE PANEL 1 QUEST; Future Hepatitis B Core Antibody, Total; Future Hepatitis B surface antibody; Future Hepatitis B surface antigen; Future Hepatitis C antibody; Future QUANTIFERON TB GOLD; Future Hepatic function panel; Future CBC auto differential; Future C-reactive protein; Future Creatinine, Serum; Future Sedimentation rate, automated; Future Ferritin; Future XR hand 3+ views bilateral; Future XR foot 3+ views bilateral; Future XR wrist 3+ views bilateral; Future Recurrent oral ulcers Orders: LUPUS ANTICOAGULANT EVALUATION WITH REFLEX (BKR QUEST); Future Direct Calin, Poly; Future ANALYZER MARVA, IFA WITH REFLEX TITER/PATTERN, SYSTEMIC AUTOIMMUNE PANEL 1 QUEST; Future Hepatitis B Core Antibody, Total; Future Hepatitis B surface antibody; Future Hepatitis B surface antigen; Future Hepatitis C antibody; Future QUANTIFERON TB GOLD; Future Hepatic function panel; Future CBC auto differential; Future C-reactive protein; Future Creatinine, Serum; Future Sedimentation rate, automated; Future Ferritin; Future XR hand 3+ views bilateral; Future XR foot 3+ views bilateral; Future XR wrist 3+ views bilateral; Future MARVA positive Orders: LUPUS ANTICOAGULANT EVALUATION WITH REFLEX (BKR QUEST); Future Direct Calin, Poly; Future ANALYZER MARVA, IFA WITH REFLEX TITER/PATTERN, SYSTEMIC AUTOIMMUNE PANEL 1 QUEST; Future Hepatitis B Core Antibody, Total; Future Hepatitis B surface antibody; Future Hepatitis B surface antigen; Future Hepatitis C antibody; Future QUANTIFERON TB GOLD; Future Hepatic function panel; Future CBC auto differential; Future C-reactive protein; Future Creatinine, Serum; Future Sedimentation rate, automated; Future Ferritin; Future XR hand 3+ views bilateral; Future XR foot 3+ views bilateral; Future XR wrist 3+ views bilateral; Future Generalized osteoarthritis Orders: LUPUS ANTICOAGULANT EVALUATION WITH REFLEX (BKR QUEST); Future Direct Calin, Poly; Future ANALYZER MARVA, IFA WITH REFLEX TITER/PATTERN, SYSTEMIC AUTOIMMUNE PANEL 1 QUEST; Future Hepatitis B Core Antibody, Total; Future Hepatitis B surface antibody; Future Hepatitis B surface antigen; Future Hepatitis C antibody; Future QUANTIFERON TB GOLD; Future Hepatic function panel; Future CBC auto differential; Future C-reactive protein; Future Creatinine, Serum; Future Sedimentation rate, automated; Future Ferritin; Future XR hand 3+ views bilateral; Future XR foot 3+ views bilateral; Future ASSESSMENT & PLAN : Unable to find records of reported Adult Onset Stills disease, but patient's prior symptoms seem consistent with the diagnosis and this was made by a repair service dispatcher, Dr Urban. Etiology of symptoms unclear at this time, but suspect there is some osteoarthritis and an underlying component of autoimmune disease. There may be multiple autoimmune conditions present with the constellation of symptoms she experiences. We will evaluate further with the labs above and XR imaging of bilateral hands, wrists, and feet. Discussed possibility of initiating medical therapy pending the results of the above work up. Patient is hesitant to both oral medications and infusions due to personal poor tolerance of methotrexate and concern about the side effects of biologic therapy, due to her family hx of leukemia. Will continue discussion pending results of work up. Patient will be seen for follow up in 4 months. I supervised the above medical encounter and I agree with the history and the physical examination and assessment and the plan presented by the medical office assistant instructor. Lashaun Sierra MD [1] No past medical history on file. [2] No past surgical history on file. [3] No family history on file. [4] [5] No current outpatient medications on file. documented in this encounter [facility] 10-30-2024 Note HNO ID: [id number] Author: NUSRAT HOBSON APRN.SEXUAL ABUSE COUNSELLOR Service: ? 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 Junior is a 54 year old who presents for an annual gynecologic exam without complaints. Postmenopausal: Yes HRT use: No. Last Pap: 10/2023 normal HPV: 10/2023 negative History of abnormal pap: Yes LEEP Last mammogram: 2023 normal @ [facility] History of abnormal mammogram: No Sexually active: Yes Patient concerns for STD exposure: Yes: recent breakup OB History Gravida6 Para2 Term2 Preterm0 AB3 Living2 SAB1 IAB0 Ectopic0 Multiple0 Live Births0 FAMILY HISTORY Problem Relation Age of Onset Heart Attack Mother age 71 Colon Cancer Father dx in 60's Leukemia Sister dx age 40 No Known Problems Maternal Grandmother Heart Maternal Grandfather Cancer Paternal Grandmother Cancer Paternal Grandfather SOCIAL HISTORY Social History Tobacco Use Smoking status: Never Smokeless tobacco: Never Vaping Use Vaping status: Never Used Substance Use Topics Alcohol use: Never Drug use: Never REVIEW OF SYSTEMS Abdomen: No abdominal pain, nausea, vomiting, diarrhea, or constipation. No bloating, early satiety, indigestion, or increased flatulence. Bladder: No dysuria, gross hematuria, urinary frequency, urinary urgency, or incontinence Breast: No breast lumps, nipple d/c, overlying skin changes, redness or skin retraction Allergies and current medication updated:Yes SENSITIVE EXAM: The sensitive examination was discussed with the Patient or Patient's Authorized Branch Controller. As applicable, any other physician, advance practice provider, medical student, or other health professional student that will be observing or involved in the sensitive examination for educational or training purposes was discussed with the Patient or Authorized Branch Controller. The Patient or Authorized Branch Controller has agreed to proceed with the sensitive examination. (Sensitive examination includes inspection and/or palpation of the breasts, pelvis, prostate and anorectal regions). EXAM: BP 136/88 Ht 5' 5.984 (1.68m) Wt 195 lb (88.5kg) LMP 02/04/2017 BMI 31.49 kg/(m2). GENERAL: pleasant, female in no apparent distress HEENT: Normocephalic, atraumatic, mucus membranes moist, and no lesions DERMATOLOGY: Normal, without lesions, non-icteric, and non-hirsute BREAST: soft, non-tender, symmetric, no dominant mass, normal nipple-areolar complex, no lymphadenopathy, and no nipple discharge CHEST: Normal inspiratory effort ABDOMEN: soft, non-tender, and no masses PELVIC: external genitalia normal, normal Bartholin's glands, urethra, [place]'s glands, no vulvar lesions, no cervical lesions, physiologic discharge present, normal appearing perineal body and perianal region BIMANUAL: uterus normal size, shape and consistency, no adnexal masses, and non-tender RECTOVAGINAL: deferred. NEURO: alert and oriented x3,exam grossly non-focal EXTREMITIES: normal ASSESSMENT/PLAN: 1) Health maintenance: Pap/HPV up to date. Mammogram ordered for [facility] Nutrition, exercise and routine health maintenance exams reviewed. Calcium/Vitamin D supplementation information provided. 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 Junior is a 54 year old who presents for an annual gynecologic exam without complaints. Postmenopausal: Yes HRT use: No. Last Pap: 10/2023 normal HPV: 10/2023 negative History of abnormal pap: Yes LEEP Last mammogram: 2023 normal @ [facility] History of abnormal mammogram: No Sexually active: Yes Patient concerns for STD exposure: Yes: recent breakup OB History Gravida6 Para2 Term2 Preterm0 AB3 Living2 SAB1 IAB0 Ectopic0 Multiple0 Live Births0 FAMILY HISTORY Problem Relation Age of Onset Heart Attack Mother age 71 Colon Cancer Father dx in 60's Leukemia Sister dx age 40 No Known Problems Maternal Grandmother Heart Maternal Grandfather Cancer Paternal Grandmother Cancer Paternal Grandfather SOCIAL HISTORY Social History Tobacco Use Smoking status: Never Smokeless tobacco: Never Vaping Use Vaping status: Never Used Substance Use Topics Alcohol use: Never Drug use: Never REVIEW OF SYSTEMS Abdomen: No abdominal pain, nausea, vomiting, diarrhea, or constipation. No bloating, early satiety, indigestion, or increased flatulence. Bladder: No dysuria, gross hematuria, urinary frequency, urinary urgency, or incontinence Breast: No breast lumps, nipple d/c, overlying skin changes, redness or skin retraction Allergies and current medication updated:Yes SENSITIVE EXAM: The sensitive examination was discussed with the Patient or Patient's Authorized Branch Controller. As applicable, any other physician, advance practice provider, medical student, or other health professional student that will be observing or involved in the sensitive examination for educational or training purposes was discussed with the Patient or Authorized Branch Controller. The Patient or Authorized Branch Controller has agreed to proceed with the sensitive examination. (Sensitive examination includes inspection and/or palpation of the breasts, pelvis, prostate and anorectal regions). EXAM: BP 136/88 Ht 5' 5.984 (1.68m) Wt 195 lb (88.5kg) LMP 02/04/2017 BMI 31.49 kg/(m^2). GENERAL: pleasant, female in no apparent distress HEENT: Normocephalic, atraumatic, mucus membranes moist, and no lesions DERMATOLOGY: Normal, without lesions, non-icteric, and non-hirsute BREAST: soft, non-tender, symmetric, no dominant mass, normal nipple-areolar complex, no lymphadenopathy, and no nipple discharge CHEST: Normal inspiratory effort ABDOMEN: soft, non-tender, and no masses PELVIC: external genitalia normal, normal Bartholin's glands, urethra, [place]'s glands, no vulvar lesions, no cervical lesions, physiologic discharge present, normal appearing perineal body and perianal region BIMANUAL: uterus normal size, shape and consistency, no adnexal masses, and non-tender RECTOVAGINAL: deferred. NEURO: alert and oriented x3,exam grossly non-focal EXTREMITIES: normal ASSESSMENT/PLAN: 1) Health maintenance: Pap/HPV up to date. Mammogram ordered for [facility] Nutrition, exercise and routine health maintenance exams reviewed. Calcium/Vitamin D supplementation information provided. Colon cancer screening: up to date with screening 2) Follow up one year or sooner as needed 3) Full STD panel ordered Nusrat Hobson APRN.CNP documented in this encounter [facility] 09-25-2024 Telephone encounter Note Called patient made apt [facility] 09-25-2024 Miscellaneous Notes Called patient made apt documented in this encounter [facility] 09-25-2024 Telephone encounter Note Left voice message for pt to call to new pt appt. [facility] 09-25-2024 Miscellaneous Notes Left voice message for pt to call to new pt appt. documented in this encounter [facility] 11-15-2023 Procedure note [facility] 11-15-2023 Procedure note [facility] 03-25-2023 Miscellaneous Notes Addended by: CASSIE ANGELA on: 03/25/2023 05:15 PM Modules accepted: Orders documented in this encounter [facility] 03-25-2023 Instructions Cassie Angela APRN.CNP - 03/25/2023 4:00 PM EDT ASSESSMENT/PLAN: 1. Boil of lower extremity - ICD9: 680.6, ICD10: L02.429 - DOXYCYCLINE MONOHYDRATE 100 MG TABLET - change bandage daily. Keep clean and dry. You may apply a small amount of antibiotic ointment with each dressing change. - Follow-up with your PCP in 3-5 days if symptoms have not improved or sooner if symptoms worsen - Discussed red flags and need for immediate medical evaluation if any occur. - Discussed supportive care treatment with fluids, rest and analgesia. - Discussed expected course of illness Cassie Angela APRN.CNP ABSCESS (BOIL): You have a skin abscess, or boil. Boils usually develop when Staph bacteria get into the small glands or hair follicles in the skin and form a pus pocket. After an abscess is properly drained, it will most often heal without any problems. You should not squeeze an abscess or boil to drain it; this can cause the infection to spread to other areas under the skin. Boils are contagious, so you should dispose of soiled bandages carefully and not share your towel or wash cloth with others. A boil is lanced to start the draining. Warm compresses can be helpful to promote further drainage. Oral antibiotics may be needed if the infection is severe or if it seems to be spreading. Please call your doctor if you have increased pain or swelling, chills or fever, red streaks going up the arm or leg, or continued pus drainage after 3-4 days. documented in this encounter [facility] 03-25-2023 History of Presen t illness Narrative Images from the original note were not included. Subjective HPI Junior Florian is a 52 year old female who presents with a boil on her right lower leg. She has had this for the past week. She saw another provider who put her on doxycycline 100 mg x 5 days. She states the redness and swelling and pain has improved, but for the past couple days she has had a white spot on her skin. She wants to drain it herself but was advised not to. She denies any fevers or chills. Review of Systems Constitutional: Negative for chills and fever. Musculoskeletal: Negative for joint pain and myalgias. Skin: Negative for itching and rash. 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 ALLERGIES Bee Venom Protein (Honey Bee) MEDICATIONS fish,bora,flax oils-om3,6,9no1 (OMEGA 3-6-9) 1,200 mg cap Take by mouth. citalopram (CELEXA) 20 mg tablet Take 20 mg by mouth once daily. Multivitamin capsule Take 1 capsule by mouth once daily. BACILLUS COAGULANS (PROBIOTIC, B. COAGULANS, ORAL) Take by mouth. Ascorbic Acid (VITAMIN C) 1,000 mg tablet Take 1,000 mg by mouth once daily. No family history on file. Social History Tobacco Use Smoking status: Never Smokeless tobacco: Never Objective Physical Exam Vitals and nursing note reviewed. Constitutional: Appearance: Normal appearance. Musculoskeletal: General: No swelling, tenderness or signs of injury. Right knee: Erythema present. No swelling, bony tenderness or crepitus. Normal range of motion. No tenderness. Skin: General: Skin is warm and dry. Capillary Refill: Capillary refill takes less than 2 seconds. Findings: Erythema present. No rash. Neurological: Mental Status: She is alert. UNIVERSAL PROTOCOL / SAFETY CHECKLIST Procedure to be Performed: incision and drainage right lower leg Sign In: A Moment of CARE was completed. Personnel directly involved with the procedure wore the appropriate PPE (Personal Protective Equipment). No special equipment needed. Patient/Surrogate Stated/Verified: PATIENT VERIFIED(optional for EMERGENT procedures): Patient name, Date of , Relevant allergies, and The intended procedure Time Out Communication: Intended patient and procedure match the source documents. Consent documented and matches the intended procedure. Correct side/site marked and visible. Medications required for procedure verified. No fire risk assessment and interventions applicable. No implant(s) inserted. Sign Out: SIGN OUT (optional for EMERGENT procedures): All specimen containers correctly labeled. All instruments, equipment, possible retained foreign bodies accounted for. Post-procedure follow-up management communicated and Plan of Care Visit completed when applicable. Cassie Angela APRN.SEXUAL ABUSE COUNSELLOR After universal precaution procedure done, skin was cleansed with saline and povidine. 1 cc of 2% bupivacaine was injected surrounding the area of maximal fluctuance and small incision made with 11 blade scalpel. A small amount of purulent drainage was expressed. Culture swab obtained. Dry sterile dressing was applied. Patient tolerated procedure well. ASSESSMENT/PLAN: 1. Boil of lower extremity - ICD9: 680.6, ICD10: L02.429 - DOXYCYCLINE MONOHYDRATE 100 MG TABLET - change bandage daily. Keep clean and dry. You may apply a small amount of antibiotic ointment with each dressing change. - Follow-up with your PCP in 3-5 days if symptoms have not improved or sooner if symptoms worsen - Discussed red flags and need for immediate medical evaluation if any occur. - Discussed supportive care treatment with fluids, rest and analgesia. - Discussed expected course of illness Cassie Angela APRN.SEXUAL ABUSE COUNSELLOR documented in this encounter [facility] 10-23-2021 Note [facility] Work Phone: Pap Smear Specimen Adequacy October 23, 2021 4:30pm Comment Satisfactory for evaluation. Endocervical and/or squamous metaplasticcells (endocervical component) are present. Comment on above: Satisfactory for jatinder luation. Endocervical and/or squamous metaplasticcells (endocervical component) are present. 10-23-2021 Note [facility] Work Phone: Pap Smear Specimen Adequacy October 23, 2021 4:30pm Comment Satisfactory for evaluation. Endocervical and/or squamous metaplasticcells (endocervical component) are present. Comment on above: Satisfactory for jatinder luation. Endocervical and/or squamous metaplasticcells (endocervical component) are present. 10-23-2021 Note [facility] Work Phone: Pap Smear Specimen Adequacy October 23, 2021 4:30pm Comment Satisfactory for evaluation. Endocervical and/or squamous metaplasticcells (endocervical component) are present. Comment on above: Satisfactory for jatinder luation. Endocervical and/or squamous metaplasticcells (endocervical component) are present. 01-26-2011 History of Past i llness Narrative Problem Noted Date Diagnosed Date Resolved Date Electrolyte and fluid disord ers not elsewhere classified 01/26/2011 08/05/2017 documented as of this encounter (statuses as of 03/26/2023) [facility] assessment information availableW[facility] Work Phone: Evaluation note* Diagnosis Onset Date Resolution Status Acute appendicitis acute Nausea acute [facility] Work Phone: Evaluation note* Diagnosis Onset Date Resolution Status S/P appendectomy acute [facility] Work Phone: evaluation note* Diagnosis Boil of lower extremity- Primary Carbuncle and furuncle of leg, except foot documented [facility] Diagnosis Onset Date Resolution Status History of adenomatous polyp of colon acute [facility] Work Phone: Evaluation note* Diagnosis Encounter for gynecological examination (general) (routine) without abnormal findings- Primary Encounter for screening mammogram for breast cancer Screen for STD (sexually transmitted disease) Screening examination for venereal disease 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 History of rheumatoid arthritis Personal history of arthritis High risk medication use Recurrent oral ulcers MARVA positive Generalized osteoarthritis Generalized osteoarthrosis, involving multiple sites [facility] Author Juan David Patino [facility] November 15, 2023 8:43am Note Date/Time November 15, 2023 8:4 3am [facility] Medical Records Department [address] [place] [address] History & Physical Exam 11/15/23 0838 MR#: [id number] Acct: [id number] Name: JUNIOR FLORIAN Rep #:[id number] : 1970 53 From: Juan David Doll PCP: Dr. Vasu Powell MD Status :[facility] Location: [place] [address] HPI - General General Date of Service: 11/15/23 HPI Narrative JUNIOR FLORIAN, is a 53 F who presents for surveillance colonoscopy. She confirms her preappointment questionnaire that she has not experienced any change in her bowel habits, but freely admits to history of chronic constipation. She expresses some frustration over this fact given that she regularly uses fiber, probiotic, and water. She is status post colonoscopy withDr. Courtney in 2020 where she was found to have tubular adenomas of the left colon. She also has a family history of colon cancer in her father diagnosed inhis 60s. She reports that she remains healthy and her last significant health update was our appendectomy together nearly 2 years ago. Lastly she confirms that her prep was completed successfully and that her output is now clear. [facility] Medical History (Updated 11/15/23 @ 08:[address] Juan David Patino MD) Anxiety Chronic constipation Family history of malignant neoplasm of colon in father Gastroesophageal reflux disease History of adenomatous polyp of colon History of DVT (deep vein thrombosis) History of echocardiogram History of peptic ulcer disease HTN (hypertension) Non-smoker Osteoarthritis Rheumatoid arthritis Sleep apnea Wears contact lenses Wears glasses Home Medications Bacillus coagulans 250 million cell chewable tablet 1 ea PO DAILY supplement 07/21/17 [History Last Taken 11/12/23] multivitamin 1 ea PO DAILY vitamin 07/21/17 [History Last Taken 11/12/23] omega-3 fatty acids-fish oil 300 mg-1,000 mg capsule 1 ea PO DAILY supplement 07/21/17 [History Last Taken 11/12/23] omeprazole magnesium 20 mg capsule,delayed release 20 mg PO DAILY GERD 10/08/20 [History Last Taken 11/15/23] cholecalciferol (vitamin D3) 25 mcg (1,000 unit) chewable tablet 1,000 unit PO DAILY supplement 11/06/20 [History Last Taken 11/12/23] magnesium oxide 200 mg PO DAILY suipplement 11/06/20 [History Last Taken 11/12/23] vitamin C 50 mg-biotin 1,250 mcg chewable tablet 1 each PO DAILY vitamin 11/06/20 [History Last Taken 11/12/23] turmeric 400 mg capsule 400 mg PO DAILY supplement 03/30/22 [History Last Taken 11/12/23] bupropion HCl 300 mg 24 hr tablet, extended release (Wellbutrin XL) 300 mg PO QAM 09/23/23 [History Last Taken 11/15/23] cyanocobalamin (vitamin B-12) 1,000 mcg tablet (Vitamin B-12) 1,000 mcg PO DAILY09/23/23 [History Last Taken 11/12/23] Allergy/AdvReac Type Severity Reaction Status Date / Time bee venom protein (honey bee) Allergy Swelling Verified 11/15/23 07:29 Family History (Updated 09/23/23 @ 08:33 by Loree Monreal) Sister Cancer leukemia Hypertension Mother Heart disease Father Colon cancer, Onset Age: 60 early 60's w/colon ca Aunt Colon polyps Paternal Aunts Surgical History History of appendectomy (~03/2022) History of bone marrow donation History of carpal tunnel release History of cholecystectomy History of colonoscopy History of esophagogastroduodenoscopy (EGD) History of salpingo-oophorectomy Social History (Updated 09/23/23 @ 08:34 by Loree Monreal) current occupational status: employed Smoking Status: Never smoker alcohol intake: never substance use type: does not use Past Medical/Surgical History Planned Operation Planned Operative Procedure/s: COLONOSCOPY S.O.S: No Previous Hospitalizations/Surgeries HX Hospitalizations: No HX of Surgeries: EGD, Colonoscopy bone marrow donation carpal tunnel release cholecystectomy Salpingectomy, ablation Any Problems With Anesthesia: Yes (STATES BP DROPS AFTER ANESTHESIA) You/Your Family Experience Fever (Hyperthermia) With Anes: No Cholinesterase deficiency: No Cardiovascular Hx Chest Pain within Last 2 months: Yes (After Covid vacc, with palpitations) Hx of Irregular Heartbeat and/or Afib: No (possible murmur) Hx Heart Attack: No Hx Congestive Heart Failure: No Hx Rheumatic Fever: No Hx Hypertension: No Hx Internal Defibrillator: No Hx Pacemaker: No Hx Cardiac Catheterization: No Hx Cardiac Surgery/Stents/Etc.: No Hx Stress Test: No (ECHO 2013) Hx Pain in Legs when Walking/Leg Cramps: Yes (PER HX) Respiratory Chronic Cough: No HX of Shortness of Breath: No Hoarseness: No Hx Chronic Obstructive Pulmonary Disease (COPD): No Hx Asthma: No Hx Emphysema: No Hx Sleep Apnea: Yes CPAP: Yes (NONCOMPLIANT, DOES NOT USE) BIPAP: No Hx Respiratory Tract Infection/Cold (presently): No Do You Snore Loudly (louder than talking or can be heard): No Do You Often Feel Tired/ Fatigued/ Sleepy Dring Daytime?: No Has Anyone Observed You Stop Breathing During Sleep?: No Result (for STOP score): Positive Hx Smoking: No Smoking Status: Never smoker Gastrointestinal Controlled With Meds: Yes (prilosec) Hx Gastrointestinal Disorders: No Hx Gastrointestinal Bleed: No Hx Ulcer: Yes (peptic ulcer in 20s) Hx Hiatal Hernia: No Difficulty Chewing/Swallowing: No Special diet followed at home: No Hx Unplanned Weight Loss of 20#: No HX Unplanned Weight Gain of 20#: No Neurological Hx Seizures: No HX Syncope/Blackout Spells/Unconsciousness: Yes (AFTER BONE MARROW PROCEDURE) Hx Transient Ischemic Attacks (TIA): No Hx Multiple Sclerosis: No Hx Parkinson's Disease: No 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) Hx Headaches: Yes Hx Back Injury/Pain: Yes (LOWER LUMBAR FUSED, DUE TO INJURY) Recent Onset of Speech Difficulty: No Restless Legs: No Does patient have nerve stimulator: No Blood Disorder Hx Leukemia: No Bleeding Tendencies: No Hx Deep Vein Thrombosis: Yes (d/t control) Hx High Cholesterol: No Blood Transmitted Disease: No Hx Hepatitis: No Hx Cirrhosis: No Hx Anemia: No Hx Blood Disorders: No Reproduction Is Patient Lactating: No Hx Hysterectomy: No Hx Tubal Ligation: Yes Are You Post Menopause: No Genitourinary Hx Renal Disease: No Musculoskeletal Hx Arthritis: Yes Hx Rheumatoid Arthritis: Yes (NO MEDS) Hx Gout: No Recent Onset of an Orthopedic Problem: No Endocrine Hx Diabetes: No Thyroid Disease: No Hx Steroid Therapy: No Psycho/Social Hx Substance Use: No Hx Alcohol Use: No Hx Anxiety: No Hx Depression: Yes Mental Illness: No Hx Dementia: No Miscellaneous Hx Cancer: No Recent Exposure to Contagious Disease: No Hx of C-Diff: No Any Loose Teeth: No Allergies bee venom protein (honey bee) Allergy (Verified 11/15/23 07:29) Swelling Vital Signs Vital Signs Vital Signs: 11/15/23 07:32 11/15/23 07:32 Temperature 97.7 F L Temperature Source Temporal Pulse Rate 83 Respiratory Rate 18 Respiratory Pattern Normal Blood Pressure 154/98 H Blood Pressure Mean 116 Blood Pressure Source Monitor Blood Pressure Position Semi-Fowlers Blood Pressure Location Right Arm Pulse Ox 100 Oxygen Delivery Method Room Air Weight Weight: 190 lb 14.725 oz Body Mass Index (BMI) 30.8 Physical Exam Const alert and oriented x3 Constitutional Narrative: Anxious General Appearance: cooperative Resp normal respiratory effort GI GI Narrative: Nondistended, soft, nontender to palpation x 4 quadrants Assessment & Plan Assessment/Plan (1) History of adenomatous polyp of colon: PLAN: Patient is a 53-year-old female who follows up for surveillance colonoscopy after history of tubular adenomas diagnosed 3 years ago. She continues to experience constipation but otherwise remains well. She denies anyhealth updates. She confirms that she completed a prep for today's procedure. Will now proceed with update surveillance colonoscopy as planned. Surgery Risks - Colonoscopy Risks Include but are not Limited To: Risks include but are not limited to: Bleeding, perforation requiring further surgery, inability to complete colonoscopy requiring barium enema. 11/15/23 0843 <Electronically signed by Juan David Patino MD> Cosigner Signature (if applicable): CC: Dr. Vasu Powell MD; Dr. Juan David Patino MD~ Signed [facility] Work Phone: Reason for referral (narrative)No reason for referral information availableWCommunity [facility] Work Phone: Family History Relationship Condition Age at Onset Recorded Date/T adithya sister Malignant neoplasm Unknown Hypertension Unknown mother Cardiac disease Unknown Relationship Condition Age at Onset Recorded Date/T adithya sister Malignant neoplasm Unknown Hypertension Unknown mother Cardiac disease Unknown father Malignant neoplasm of colon 60 aunt Polyp of colon Unknown Advance Directives Advance Directive Response Recorded Date/ Time Living Will No November 06, 2020 10:54am Power of Drum Sander No November 06 1 10:54am Advance Directive Response Recorded Date/ Time Living Will No March 30 2 7:14pm Power of Drum Sander No March 30 022 7:14pm Advance Directive Response Recorded Date/ Time Living Will No March 30 11:42pm Power of Drum Sander No March 30 11:42pm Advance Directive Response Recorded Date/ Time Living Will No March 30 10:42pm Power of Drum Sander No March 30 10:42pm Advance Directive Response Recorded Date/ Time Living Will No November 11, 2023 9:09am Power of Drum Sander No November 10 9:09am Advance Directive Response Recorded Date/ Time Do you have a Healthcare Power of Drum Sander? No April 10, 2025 2:09pm Chief Complaint and Reason for Visit Chief Complaint SCREENING Chief Complaint RLQ PAIN APPENDICITIS APPENDICITIS Reason for Visit Acute appendicitis Nausea Chief Complaint RLQ PAIN APPENDICITIS ACUTE APPENDICITIS Reason for Visit Acute appendicitis Nausea Chief Complaint RLQ PAIN APPENDICITIS ACUTE APPENDICITIS ACUTE APPENDICITIS Reason for Visit Acute appendicitis Nausea Chief Complaint Appy 03/30 Reason for Visit S/P appendectomy Chief Complaint Amb Documentation Reason for Visit History of adenomato us polyp of colon Chief Complaint Amb Documentation SCREENING Reason for Visit History of adenomato us polyp of colon Chief Complaint Admit Date SCREENING December 01, 2024 3:09pm Chief Complaint Admit Date NECK PAIN April 04, 2025 3:47pm gen ill April 10, 2025 11:19am Summary Purpose Additional Source Comments Goals (unrecognized section and content) Goals may be documented in a n alternate sectionGoals may be documented in an alternate sectionGoals may be documented in an alternate sectionGoals may be documented in an alternate sectionGoals may be documented in an alternate sectionGoals may be documented in an alternate sectionGoals may be documented in an alternate sectionGoals may be documented in an alternate section Care Teams (unrecognized sec tion and content) Team Status: Active Member Role Status Dates Dr. Damian Powell MD Family Provider Active Dr. Damian Powell MD Primary Care Provider Activ e Team Status: Inactive Member Role Status Dates Dr. Damian Powell MD Primary Care Provider Activ e Dr. Josie Elias DO Attending Provider, Fadi cummings Provider Active Puppet Engineer Relationship Specialty Start Date End Date Vasu Powell MD [address] [place] [id number] PCP - General Family Medicine 03/25/23 Team Status: Active Member Role Status Dates Dr. Vasu Powell MD Family Provider Active Dr. Vasu Powell MD Primary Care Provider Acti ve Team Status: Active Member Role Status Dates Dr. Vasu Powell MD Primary Care Provider Acti ve Loree Monreal Attending Provider Active Team Status: Active Member Role Status Dates Dr. Vasu Powell MD Primary Care Provider, Ref erring Provider Active Dr. Juan David Patino MD Attending Provider, Other Provi kimberlyn Active Team Status: Inactive Member Role Status Dates Dr. Vasu Powell MD Primary Care Provider, Ref erring Provider Active Dr. Juan David Patino MD Attending Provider Active Team Status: Inactive Member Role Status Dates Dr. Vasu Powell MD Primary Care Provider Acti ve Nusrat Hobson PARADI OPERATOR, PARADI OPERATOR-C Attending Provider, Referring P divina Active Puppet Engineer Relationship Specialty Start Date End Date Vasu Powell MD [address] [place] [id number] PCP - General Family Medicine 03/25/23 Team Status: Active Member Role Status Dates LITTLE MARINELLI Primary Care Provider Active Team Status: Inactive Member Role Status Dates MAI KRAFT Primary Care Provider Active St art: December 01, 2024 End: December 01, 2024 Nusrat Hobson PARADI OPERATOR, PARADI OPERATOR-C Attending Provider Active Start: December 01, 2024 End: December 01, 2024 Nusrat Hobson PARADI OPERATOR, PARADI OPERATOR-C Referring Provider Active Start: December 01, 2024 End: December 01, 2024 Puppet Engineer Relationship Specialty Start Date End Date Little Marinelli DO [address] [place] [address] PCP - General Family Medicine 12/28/24 Puppet Engineer Relationship Specialty Start Date End Date Little Marinelli DO [address] [place] [address] PCP - General Family Medicine 12/28/24 Puppet Engineer Relationship Specialty Start Date End Date Vasu Powell MD [address] [place] [address] PCP - General Family Medicine 03/25/23 Puppet Engineer Relationship Specialty Start Date End Date Little Marinelli DO [address] [place] [address] PCP - General Family Medicine 12/28/24 Team Status: Active Member Role/Relationship Status Dates LITTLE MARINELLI Primary Care Provider Active Team Status: Active Member Role/Relationship Status Dates MAI KRAFT Primary Care Provider Active St art: April 04, 2025 MAI KRAFT Attending Provider Active Start : April 04, 2025 MAI KRAFT Referring Provider Active Start : April 04, 2025 Team Status: Active Member Role/Relationship Status Dates MAI KRAFT Primary Care Provider Active St art: April 09, 2025 Dr. Little Marinelli DO Attending Provider Active Start: April 09, 2025 Dr. Little Marinelli DO Referring Provider Active Start: April 09, 2025 Team Status: Inactive Member Role/Relationship Status Dates MAI KRAFT Primary Care Provider Active St art: April 10, 2025 End: April 10, 2025 Dr. Leonel Lara DO Emergency Provider Active Start: April 10, 2025 End: April 10, 2025 Source Comments (unrecognize d section and content) In the event this informatio n is protected by the Federal Confidentiality of Alcohol and Drug Abuse Patient Records regulations: The Federal rules restrict any use of the information to criminally investigate or prosecute any alcohol or drug abuse patient.[facility] the event this information is protected by the Federal Confidentiality of Alcohol and Drug Abuse Patient Records regulations: The Federal rules restrict any use of the information to criminally investigate or prosecute any alcohol or drug abuse patient.[facility] Hospital[facility] the event this information is protected by the Federal Confidentiality of Alcohol and Drug Abuse Patient Records regulations: The Federal rules restrict any use of the information to criminally investigate or prosecute any alcohol or drug abuse patient.[facility] Reason for Visit (unrecogniz ed section and content) Reason Comments Derm Problem Right knee, pustule x 4 days on ATB Reason Onset Date Comments New Patient 09/25/2024 Reason Comments Well Woman Reason Comments Consult RA, hx Stills, +MARVA Specialty Diagnoses / Procedures Referred By Jey t Referred To Contact Rheumatology Diagnoses RA/Hx stills/+ MARVA Procedures ME OFFICE/OUTPATIENT ESTABLISHED MOD MDM 30 MIN Little Marinelli, DO [address] [place] [address] Phone: tel: fax: [facility] [address] [place] [phone] Phone: tel: fax: Referral ID Status Reason Start Date Expiration Date V isits Requested Visits Authorized [id number] Pending Review 05/04/2024 05/04/2025 1 1 Reason Onset Date Comments Results 10/31/2024 Referral ID Status Reason Start Date Expiration Date Visits Re quested Visits Authorized [id number] Closed 05/04/2024 05/04/2025 1 1 INFORMATION SOURCE (unrecogn ized section and content) DATE CREATED AUTHOR 06/03/2023 [facility] DATE CREATED AUTHOR AUTHOR'S ORGANIZ ATION 09/27/2024 [facility] DATE CREATED AUTHOR AUTHOR'S ORGANIZ ATION 12/13/2024 [facility] DATE CREATED AUTHOR AUTHOR'S ORGANIZ ATION 01/02/2025 [facility] DATE CREATED AUTHOR AUTHOR'S ORGANIZ ATION 04/06/2025 [facility] FOR RECORDS PERTAINING TO PATIENTS WHO ARE OR HAVE BEEN ENROLLED IN A CHEMICAL DEPENDENCY/SUBSTANCEABUSE PROGRAM, SOME INFORMATION MAY BE OMITTED. This clinical summary was aggregated from multiple sources. Caution should be exercised in using it in the provision of clinical care. This summary normalizes information from multiple sources, and as a consequence, information in this document may materially change the coding, format and clinical context of patient data. In addition, data may be omitted in some cases. CLINICAL DECISIONS SHOULD BE BASED ON THE PRIMARY CLINICAL RECORDS. [employer] provides no warranty or guarantee of the accuracy or completeness of information in this document.
== END 2025-04-10 16:05 | disposition home or self-care (01) ==
PROVIDERS: Emergency Provider Emergency Medicine; Visit Provider Emergency Medicine
DX: K11.20 Sialoadenitis, unspecified (principal); L03.211 Cellulitis of face; Z86.718 Personal history of other venous thrombosis and embolism
CPT/HCPCS: 70491; 80048; 85025; 87040; 87631; 87651; 96361; 96374; 96375; 99283; Q9967; A4216; J2405

== ENCOUNTER → 2025-04-17 | Outpatient (CLI) | payer OTHER, SELFPAY ==
--- NOTE | 2025-04-17 16:20 | MRI_ITS ---
PROCEDURE: SPINE CERVICAL (ROUTINE) 04/17/2025 REASON FOR EXAM: DDD, PAIN, RT HAND WEAKNESS TECHNIQUE: Procedure Code: MRISPC Modality: MR Procedure: SPINE CERVICAL (ROUTINE) Multiplanar and multisequence images were obtained without IV contrast administration. COMPARISON: Cervical spine x-ray 10/14/2018. FINDINGS: Vertebrae: Cervical vertebral body heights are preserved. Bone marrow signal is unremarkable. Alignment: Normal. No spondylolisthesis. Spinal Cord: Cervical spinal cord is of normal size and signal intensities. Structures at the foramen magnum are unremarkable. C2-3: Disc osteophyte complex measures 2 mm. No foraminal or canal stenosis. C3-4: Disc osteophyte complex measures 2 mm. Mild canal stenosis. No foramina stenosis. C4-5: Disc desiccation. Disc osteophyte complex measures 3 mm. Uncovertebral hypertrophy. Facet joint arthropathy. Severe bilateral foramina stenosis. Mild canal stenosis. C5-6: Disc desiccation. Disc osteophyte complex measures 3 mm. Uncovertebral hypertrophy. Facet joint arthropathy. Severe bilateral foramina stenosis. Mild canal stenosis. C6-7: Disc desiccation. Disc osteophyte complex measures 3 mm. Uncovertebral hypertrophy. Facet arthropathy. Severe left and mild right foramina stenosis. Mild canal stenosis. C7-T1: Unremarkable MRI/Spine Cervical (Routine) IMPRESSION: Worsening degenerate changes compared to MRI cervical spine 10/14/2018. Severe bilateral foramina stenosis at C4-C5 and C5-C6. Severe left foramina stenosis at C6-C7. Mild canal stenosis at C4-C5 C5-C6 and C6-C7. Reading Location: [id number]
== END | disposition home or self-care (01) ==
LOC: OPMRI 16:10
PROVIDERS: PCP Family Medicine; Referring Provider Family Medicine; Visit Provider Family Medicine
DX: M50.30 Other cervical disc degeneration, unspecified cervical region (principal); M43.10 Spondylolisthesis, site unspecified; R29.898 Other symptoms and signs involving the musculoskeletal system
CPT/HCPCS: 72141